=== PATIENT | female | born 1955 | race Caucasian/White ===

== ENCOUNTER → 2017-01-10 | Outpatient (CLI) | payer OTHER ==
[2017-01-10 10:27] LABS: CH 29.1; CHCM 32.8; HCT 46.7 % (34.0-46.0); HDW 2.51; HGB 15.3 gm/dL (11.4-16.0); MCH 29.3 pg (25.0-35.0); MCHC 32.8 g/dL (31.0-37.0); MCV 89.3 fL (80.0-100.0); Mean Platelet Volume 7.6; RBC 5.23 m/uL (3.80-5.40); RDW 13.5 % (11.5-15.5); WBC 8.4 k/uL (3.8-10.6)
[2017-01-10 10:53] LABS: ALT 32 U/L (9-52); AST 26 U/L (14-36); Alkaline Phosphatase 77 U/L (38-126); Anion Gap 10 mmol/L; Blood Urea Nitrogen 24 mg/dL (7-17); Calcium 9.8 mg/dL (8.4-10.2); Carbon Dioxide 29 mmol/L (22-30); Chloride 102 mmol/L (98-107); Cholesterol 177 mg/dL (<200); Glucose 110 mg/dL (74-99); HDL Cholesterol 57 mg/dL (40-60); Non-African American GFR(MDRD) >60 (>60 ml/min/1.73 sqM); Potassium 4.3 mmol/L (3.5-5.1); Sodium 141 mmol/L (137-145); Total Bilirubin 0.7 mg/dL (0.2-1.3); Total Protein 7.1 g/dL (6.3-8.2)
[2017-01-10 11:07] LABS: Triglycerides 128 mg/dL (<150)
[2017-01-10 11:37] LABS: Hepatitis C Virus IgG Ab Negative (Negative); Hepatitis C Virus IgG Index 0.02
== END | disposition home or self-care (01) ==
LOC: LABWHC1 09:57
PROVIDERS: ATTEND Family Medicine
DX: I10 Essential (primary) hypertension (principal); Z13.9 Encounter for screening, unspecified
CPT/HCPCS: 36415; 80053; 80061; 85027; 86803

== ENCOUNTER → 2017-08-03 | Outpatient (CLI) | payer MEDICAID ==
[2017-08-03 12:28] LABS: Basophils # (A) 0.1 k/uL (0-0.2); Basophils % (A) 1 %; Eosinophils # (A) 0.3 k/uL (0-0.7); Eosinophils % (A) 3 %; HCT 47.9 % (34.0-46.0); HGB 14.8 gm/dL (11.4-16.0); Lymphocytes # (A) 3.3 k/uL (1.0-4.8); Lymphocytes % (A) 35 %; MCH 26.9 pg (25.0-35.0); MCHC 30.9 g/dL (31.0-37.0); Mean Platelet Volume 8.1; Monocytes # (A) 0.7 k/uL (0-1.0); Monocytes % (A) 7 %; Neutrophils % (A) 52 %; Platelet Count 298 k/uL (150-450); RDW 14.5 % (11.5-15.5); WBC 9.6 k/uL (3.8-10.6)
[2017-08-03 12:45] LABS: ALT 43 U/L (9-52); AST 29 U/L (14-36); Alkaline Phosphatase 79 U/L (38-126); Anion Gap 12 mmol/L; Blood Urea Nitrogen 23 mg/dL (7-17); Carbon Dioxide 30 mmol/L (22-30); Chloride 101 mmol/L (98-107); Cholesterol 184 mg/dL (<200); Glucose 102 mg/dL (74-99); HDL Cholesterol 56 mg/dL (40-60); LDL Cholesterol,Calculated 102 mg/dL (0-99); Potassium 3.9 mmol/L (3.5-5.1); Sodium 143 mmol/L (137-145); Total Bilirubin 0.5 mg/dL (0.2-1.3); Total Protein 7.1 g/dL (6.3-8.2); Triglycerides 130 mg/dL (<150)
== END | disposition home or self-care (01) ==
LOC: LABWHC1 11:52
PROVIDERS: ATTEND Family Medicine
DX: I10 Essential (primary) hypertension (principal); E88.81 Metabolic syndrome and other insulin resistance; R60.9 Edema, unspecified
CPT/HCPCS: 36415; 80053; 80061; 85025

== ENCOUNTER → 2017-10-13 | Outpatient (CLI) | payer MEDICAID ==
--- NOTE | 2017-10-13 13:53 | MM ---
Reason for exam: screening (asymptomatic). Last mammogram was performed 1 year and 7 months ago. History: Patient is postmenopausal and history of other cancer. Physical Findings: A clinical breast exam by your physician is recommended on an annual basis and results should be correlated with mammographic findings. MG Screening Mammo w CAD Bilateral CC, MLO, and XCCL view(s) were taken. Prior study comparison: March 08, 2016, bilateral MG screening mammo w CAD. March 05, 2015, bilateral MG screening mammo w CAD. There are scattered fibroglandular densities. There is no discrete abnormality. ASSESSMENT: Negative, BI-RAD 1 RECOMMENDATION: Routine screening mammogram of both breasts in 1 year.
== END | disposition home or self-care (01) ==
LOC: RADMAMWWP 08:50
PROVIDERS: ATTEND Family Medicine
DX: Z12.31 Encounter for screening mammogram for malignant neoplasm of breast (principal)
CPT/HCPCS: 77067

== ENCOUNTER 2017-11-16 08:42 | Day surgery (SDC) | payer MEDICAID ==
[2017-11-14 12:44] VITALS: BMI 46.2
[~2017-11-16 08:42] MED LIST: LACTATED RINGERS 1,000 ML IV SCH; LIDOCAINE 1% 20 ML VIAL (10MG/ML) FOR IV START INTRADERMA PRN
[2017-11-16 09:05] VITALS: TEMP 98
[2017-11-16] MEDS ORDERED: PROPOFOL 10 MG/ML 20 ML VIAL IV ONE (09:24)
[2017-11-16 09:28] LABS: Glucose,Whole Blood 106 mg/dL (75-99)
--- NOTE | 2017-11-16 09:48 | P.PCN ---
Date of Procedure: 11/16/17 Procedure(s) Performed: BRIEF HISTORY: Patient is a 61-year-old pleasant white female, scheduled for an elective colonoscopy as a part of screening for colorectal neoplasia. PROCEDURE PERFORMED: Colonoscopy with snare polypectomy PREOPERATIVE DIAGNOSIS: Screening for colon cancer. IV sedation per Anesthesia. PROCEDURE: After informed consent was obtained, the patient, was brought into the endoscopy unit. IV sedation was administered by Anesthesia under continuous monitoring. Digital rectal examination was normal. Initially the Olympus CF- 160 flexible video colonoscope was then inserted in the rectum, gradually advanced into the cecum without any difficulty. Careful examination was performed as the scope was gradually being withdrawn. Ileocecal valve and the appendiceal orifice were visualized and appeared normal. Prep was excellent. Mucosa of the cecum, ascending colon, appeared normal. In the mid transverse colon there was a 2.5 cm broad-based polyp that was removed by piecemeal snare polyp rectum and complete polypectomy was accomplished. In the descending colon there was a 5 mm polyp removed by snare polypectomy in the rectum there were two 5 mm polyps removed by snare polypectomy. The rest of the transverse colon, descending colon, sigmoid colon, and rectum appeared normal. Scattered sigmoid diverticula seen. Retroflexion was performed in the rectum and no lesions were seen. The patient tolerated the procedure well. IMPRESSION: 2.5 cm with centimeter broad-based transverse colon polyp removed by snare polypectomy 5 mm descending colon polyp status post polypectomy 5 mm 2 rectal polyps status post polypectomy Scattered sigmoid diverticulosis RECOMMENDATIONS: Findings of this examination were discussed with the patient as well as a family. She was advised to follow with the biopsy results. If the biopsy shows a tubular adenoma she can have a repeat colonoscopy in 3 years.
[2017-11-16 09:54] VITALS: RESP 18
[2017-11-16 10:05] VITALS: BP 103/55; PULSE 55
== END 2017-11-16 10:42 | disposition home or self-care (01) ==
LOC: ORWHC2ENDO 08:42
PROVIDERS: ATTEND Internal Medicine Gastroenterology
DX: Z12.11 Encounter for screening for malignant neoplasm of colon (principal); K63.5 Polyp of colon; K62.1 Rectal polyp; D17.5 Benign lipomatous neoplasm of intra-abdominal organs; K57.30 Diverticulosis of large intestine without perforation or abscess without bleeding; I10 Essential (primary) hypertension; K21.9 Gastro-esophageal reflux disease without esophagitis; E66.01 Morbid (severe) obesity due to excess calories; Z68.42 Body mass index [BMI] 45.0-49.9, adult; Z79.1 Long term (current) use of non-steroidal anti-inflammatories (NSAID); Z79.82 Long term (current) use of aspirin; Z79.899 Other long term (current) drug therapy
CPT/HCPCS: 88305; 45385; J2704

== ENCOUNTER → 2018-01-26 | Outpatient (CLI) | payer MEDICAID ==
[2018-01-26 11:50] LABS: Basophils # (A) 0.1 k/uL (0-0.2); Basophils % (A) 1 %; Eosinophils # (A) 0.2 k/uL (0-0.7); Eosinophils % (A) 3 %; HCT 45.7 % (34.0-46.0); HGB 15.1 gm/dL (11.4-16.0); Lymphocytes # (A) 2.9 k/uL (1.0-4.8); Lymphocytes % (A) 36 %; MCHC 33.1 g/dL (31.0-37.0); MCV 87.7 fL (80.0-100.0); Mean Platelet Volume 7.4; Monocytes # (A) 0.6 k/uL (0-1.0); Monocytes % (A) 7 %; Neutrophils % (A) 50 %; Platelet Count 284 k/uL (150-450); RBC 5.21 m/uL (3.80-5.40); RDW 13.7 % (11.5-15.5); WBC 8.1 k/uL (3.8-10.6)
[2018-01-26 11:59] LABS: ALT 32 U/L (9-52); AST 26 U/L (14-36); Alkaline Phosphatase 66 U/L (38-126); Anion Gap 4 mmol/L; Blood Urea Nitrogen 25 mg/dL (7-17); Calcium 9.8 mg/dL (8.4-10.2); Carbon Dioxide 34 mmol/L (22-30); Chloride 103 mmol/L (98-107); Cholesterol 175 mg/dL (<200); Glucose 103 mg/dL (74-99); HDL Cholesterol 54 mg/dL (40-60); LDL Cholesterol,Calculated 97 mg/dL (0-99); Potassium 4.1 mmol/L (3.5-5.1); Sodium 141 mmol/L (137-145); Total Bilirubin 0.5 mg/dL (0.2-1.3); Total Protein 6.8 g/dL (6.3-8.2); Triglycerides 119 mg/dL (<150)
== END | disposition home or self-care (01) ==
LOC: LABWHC1 11:19
PROVIDERS: ATTEND Family Medicine
DX: I10 Essential (primary) hypertension (principal)
CPT/HCPCS: 36415; 80053; 80061; 85025

== ENCOUNTER → 2018-08-02 | Outpatient (CLI) | payer MEDICAID ==
[2018-08-02 11:14] LABS: HCT 46.8 % (34.0-46.0); HGB 15.4 gm/dL (11.4-16.0); MCH 28.7 pg (25.0-35.0); MCV 87.2 fL (80.0-100.0); Mean Platelet Volume 7.5; Platelet Count 256 k/uL (150-450); RBC 5.37 m/uL (3.80-5.40); RDW 13.8 % (11.5-15.5); WBC 7.9 k/uL (3.8-10.6)
[2018-08-02 11:20] LABS: Appearance,Urine Clear (Clear); Bacteria,Urine Rare /hpf; Bilirubin,Urine Negative (Negative); Blood,Urine Negative (Negative); Color,Urine Yellow; Glucose,Urine (UA) Negative (Negative); Ketones,Urine Negative (Negative); Leukocyte Esterase,Urine Negative (Negative); Mucus,Urine Many /hpf; Nitrite,Urine Negative (Negative); Protein,Urine 1+ (Negative); RBC,Urine 7 /hpf (0-5); Specific Gravity,Urine 1.024 (1.001-1.035); Squamous Epithelial Cell,Urine 3 /hpf (0-4); WBC,Urine 2 /hpf (0-5)
[2018-08-02 16:43] LABS: Albumin 4.3 g/dL (3.80-4.90); Albumin/Globulin Ratio 2.26 (1.20-2.10); Anion Gap 7.6 mmol/L (4.00-12.00); Calcium 9.4 mg/dL (8.7-10.3); Carbon Dioxide 30.4 mmol/L (21.6-31.8); Globulin 1.9 g/dL (1.6-3.3); LDL Cholesterol,Calculated 93.8 mg/dL (0.0-131.0); Potassium 3.8 mmol/L (3.5-5.5); Total Bilirubin 0.5 mg/dL (0.3-1.2); Total Protein 6.2 g/dL (6.2-8.2); VLDL Calculation 23.2 mg/dL (5.00-40.00)
== END | disposition home or self-care (01) ==
LOC: LABWHC1 10:40
PROVIDERS: ATTEND Family Medicine
DX: Z00.00 Encounter for general adult medical examination without abnormal findings (principal)
CPT/HCPCS: 36415; 80053; 80061; 81001; 85027

== ENCOUNTER → 2018-11-21 | Outpatient (CLI) | payer MEDICAID ==
--- NOTE | 2018-11-22 11:46 | MM ---
Reason for exam: screening (asymptomatic). Last mammogram was performed 1 year and 1 month ago. History: Patient is postmenopausal and history of other cancer. Physical Findings: A clinical breast exam by your physician is recommended on an annual basis and results should be correlated with mammographic findings. MG Screening Mammo w CAD Bilateral CC and MLO view(s) were taken. Prior study comparison: October 13, 2017, bilateral MG screening mammo w CAD. March 08, 2016, bilateral MG screening mammo w CAD. There are scattered fibroglandular densities. Stable 6 o'clock focal asymmetry on the right. No significant changes when compared with prior studies. ASSESSMENT: Negative, BI-RAD 1 RECOMMENDATION: Routine screening mammogram of both breasts in 1 year.
== END | disposition home or self-care (01) ==
LOC: RADMAMWWP 13:21
PROVIDERS: ATTEND Family Medicine
DX: Z12.31 Encounter for screening mammogram for malignant neoplasm of breast (principal)
CPT/HCPCS: 77067

== ENCOUNTER → 2019-02-19 | Outpatient (CLI) | payer MEDICAID ==
[2019-02-19 16:18] LABS: African American GFR (CKD) 78.3 (60.0-200.0); Albumin 4.2 g/dL (3.80-4.90); Albumin/Globulin Ratio 1.91 (1.60-3.17); Anion Gap 6.3 mmol/L (4.00-12.00); BUN/Creat Ratio 22.22 Ratio (12.00-20.00); Carbon Dioxide 32.7 mmol/L (21.6-31.8); Globulin 2.2 g/dL (1.6-3.3); Potassium 4.6 mmol/L (3.5-5.5); Total Bilirubin 0.4 mg/dL (0.2-1.2); Total Protein 6.4 g/dL (6.2-8.2)
== END | disposition home or self-care (01) ==
LOC: LABWHC1 11:19
PROVIDERS: ATTEND Family Medicine
DX: I10 Essential (primary) hypertension (principal); E78.2 Mixed hyperlipidemia
CPT/HCPCS: 36415; 80053; 80061

== ENCOUNTER → 2019-07-20 | Outpatient (CLI) | payer MEDICAID | END | disposition home or self-care (01) | LOC: RADMRIMAIN 20:53 | PROVIDERS: ATTEND Orthopaedic Surgery | DX: Z53.9 Procedure and treatment not carried out, unspecified reason (principal) ==

== ENCOUNTER → 2020-01-14 | Outpatient (CLI) | payer MEDICARE, OTHER ==
--- NOTE | 2020-01-15 10:23 | MM ---
Reason for exam: screening (asymptomatic). Last mammogram was performed 1 year and 2 months ago. History: Patient is postmenopausal and history of other cancer. Physical Findings: A clinical breast exam by your physician is recommended on an annual basis and results should be correlated with mammographic findings. MG 3D Screening Mammo W/Cad Bilateral CC, MLO, and XCCL view(s) were taken. Prior study comparison: November 21, 2018, bilateral MG screening mammo w CAD. October 13, 2017, bilateral MG screening mammo w CAD. The breast tissue is almost entirely fat. Focal asymmetry right 5-6 o'clock is unchanged. No significant changes when compared with prior studies. ASSESSMENT: Negative, BI-RAD 1 RECOMMENDATION: Routine screening mammogram of both breasts in 1 year.
== END | disposition home or self-care (01) ==
LOC: RADMAMWWP 14:56
PROVIDERS: ATTEND Family Medicine
DX: Z12.31 Encounter for screening mammogram for malignant neoplasm of breast (principal)
CPT/HCPCS: 77063; 77067

== ENCOUNTER → 2020-03-20 | Outpatient (CLI) | payer MEDICARE, OTHER ==
--- NOTE | 2020-03-20 16:27 | CONS ---
CONSULTATION DATE OF SERVICE: 03/20/2020 A 64-year-old lady has been evaluated in the Sleep Center for possible obstructive sleep apnea-hypopnea syndrome. HISTORY OF PRESENT ILLNESS/SLEEP WAKE EVALUATION: Patient's usual sleep schedule from around 11 p.m. to 7, 8 a.m. No problems with falling asleep, although she has TV in bedroom. She usually sleeps on the stomach position. According to her when she is tired, her snoring is very loud. No history of hypnagogic hallucinations, sleep paralysis. In the morning, patient wakes up tired, falling asleep during the day. [place] Sleepiness Scale increased to 10. No vivid dreams during naps. She takes 2 caffeinated beverages during the day. PAST MEDICAL HISTORY: Hypertension, depression, acid reflux, basal cell CA, swelling of the legs. PAST SURGICAL HISTORY: Hysterectomy, appendectomy, and hernia repair. SOCIAL HISTORY: Alcohol consumption occasional. FAMILY HISTORY: Snoring, skin cancer, hypertension, hyperlipidemia. REVIEW OF SYSTEMS: Sleepiness during the day, snoring. PHYSICAL EXAM: lady without distress, BP 168/79, HR 52, RR 16, height 5 foot, 6-1/2 inches, weight 304 pounds, body mass index 48.3, temperature 98.1, oxygen saturation from 96%. OROPHARYNX: Extremely low position of soft palate, Mallampati IV, wide neck 16 inches in circumference. ABDOMEN: Obese. NECK: Supple, no JVD. Thyroid is not palpable. LUNGS: Clear to percussion and to auscultation. Good air exchange. No wheezing or rhonchi. HEART: S1, S2 regular. No murmurs, gallops, or rubs. EXTREMITIES: No clubbing or cyanosis. TECHNICAL SALES DIRECTOR: Awake, alert, and oriented X3. Cranial nerves 2 to 7 intact. There is no fasciculation or atrophy. noted. No focal deficits observed. IMPRESSION: 1. Loud snoring, extremely low position of soft palate, sleepiness, [place] Sleepiness Scale is 10,. wide neck, obstructive sleep apnea-hypopnea syndrome. 2. Obesity. 3. Hypertension. 4. Depression. 5. Status post basal cell carcinoma from the face removed. 6. Acid reflux. 7. History of swelling of legs. 8. Allergy. 9. Status post hysterectomy. 10.Status post appendectomy. 11.Status post hernia repair. PLAN: 1. Polysomnography for evaluation of patient's breathing during sleep. 2. CPAP/BiPAP titration if sleep study confirms obstructive sleep apnea-hypopnea syndrome. 3. Preferable position during sleep on the side. 4. No driving if patient feels any sleepiness. 5. I will see patient for follow up visit to explain results of testing and following plan. Thank you very much for referring this patient for consultation. Sincerely, Armand Thomas MD, PhD, FAASM Diplomat of [place] [employer] [place] [employer] Lead Web Application Developer of [facility] [place] MMODL / IJN: [id number] /
== END | disposition home or self-care (01) ==
LOC: SLEEP 11:04
PROVIDERS: ATTEND Internal Medicine
DX: G47.33 Obstructive sleep apnea (adult) (pediatric) (principal); E66.9 Obesity, unspecified; I10 Essential (primary) hypertension; F32.9 Major depressive disorder, single episode, unspecified; K21.9 Gastro-esophageal reflux disease without esophagitis; T78.40XA Allergy, unspecified, initial encounter; Z90.710 Acquired absence of both cervix and uterus; Z90.49 Acquired absence of other specified parts of digestive tract; Z85.828 Personal history of other malignant neoplasm of skin; Z87.39 Personal history of other diseases of the musculoskeletal system and connective tissue; Z98.890 Other specified postprocedural states
CPT/HCPCS: 99211

== ENCOUNTER → 2020-08-07 | Outpatient (CLI) | payer MEDICARE, OTHER ==
--- NOTE | 2020-08-07 20:44 | SFUN ---
SLEEP CENTER FOLLOW UP NOTE DATE OF SERVICE: 08/07/2020 This 64-year-old lady has been followed in the sleep center for treatment of obstructive sleep apnea-hypopnea syndrome. The patient had a diagnostic polysomnogram which showed extremely severe sleep apnea, then patient had CPAP titration. Respiration was normalized and she received a CPAP unit. Today is her first visit after she was started on treatment with CPAP. The patient feels much better after starting treatment with CPAP. She sleeps better. She feels better during the day. [place] Sleepiness Scale today is zero. I checked BiPAP unit. Pressure is 19/14 cm of water, usage 29/30 nights for more than 4 hours with average usage 7.4 hours per night. Leak is 13 L/minute. Apnea-hypopnea index is only 2.3, which is absolutely normal. MEDICATIONS: Losartan, montelukast, sertraline, furosemide, hydrochlorothiazide, amlodipine, bupropion, omeprazole, simvastatin, metoprolol, Aleve, aspirin, vitamin D3. PHYSICAL EXAMINATION: GENERAL: A pleasant patient in no distress. VITAL SIGNS: BP 131/76, HR 61, RR 15, weight 306.4, temperature 97.8, oxygen saturation at room air 96%. HEENT: PERRLA, EOMI. Evaluation of oropharynx showed tongue protrudes midline. Extremely low position of soft palate. Mallampati IV. NECK: Supple. No JVD. Thyroid is not palpable. LUNGS: Clear to percussion and to auscultation. Good air exchange. No wheezing or rhonchi. HEART: S1, S2 regular. No murmurs, gallops or rubs. ABDOMEN: Soft and nontender. Bowel sounds are present. No organomegaly appreciated. EXTREMITIES: No clubbing or cyanosis. CARDIOVASCULAR PHYSICIAN ASSISTANT: Awake, alert, and oriented X3. Cranial nerves 2 to 7 intact. There is no fasciculation or atrophy. noted. No focal deficits observed. IMPRESSION: 1. Extremely severe obstructive sleep apnea-hypopnea syndrome; apnea-hypopnea index 119.8 with oxygen desaturation to 67.9%, fully under control with BiPAP. The patient demonstrated practically 100% compliance with treatment, benefitting from treatment. 2. Hypertension. 3. Obesity. 4. Depression. 5. Status post basal cell carcinoma on the face, removed. 6. Acid reflux. 7. History of allergies. 8. History of swelling of the legs. 9. Status post hysterectomy. 10.Status post appendectomy. 11.Status post hernia repair. PLAN: 1. Patient will continue to use PAP equipment every night for the whole night. 2. Sleep hygiene with regular time in bed for at least 7-1/2 to 8 hours. 3. Precautions related to driving. No driving if feeling sleepiness. 4. I will maintain all necessary prescription for PAP supplies including mask, tube, filters. 5. Watching weight. 6. No driving if feeling sleepiness. 7. Follow-up visit in 6 months or earlier if patient has any problems. 8. We will consider a different style of mask; patient feels pressure from the mask which she is using now. Thank you very much for allowing me to participate in the management of your patient. Sincerely, Armand Thomas MD, PhD, FAASM Diplomat of [place] [employer] [place] [employer] Custom Dressmaker of [facility] [place] MMODL / IJN: [id number] /
== END | disposition home or self-care (01) ==
LOC: SLEEP 13:19
PROVIDERS: ATTEND Internal Medicine
DX: G47.33 Obstructive sleep apnea (adult) (pediatric) (principal); I10 Essential (primary) hypertension; E66.9 Obesity, unspecified; F32.9 Major depressive disorder, single episode, unspecified; K21.9 Gastro-esophageal reflux disease without esophagitis; Z90.710 Acquired absence of both cervix and uterus; Z90.49 Acquired absence of other specified parts of digestive tract; Z99.89 Dependence on other enabling machines and devices; Z79.899 Other long term (current) drug therapy; Z79.891 Long term (current) use of opiate analgesic; Z79.82 Long term (current) use of aspirin; Z98.890 Other specified postprocedural states; Z87.39 Personal history of other diseases of the musculoskeletal system and connective tissue; Z91.09 Other allergy status, other than to drugs and biological substances

== ENCOUNTER 2020-10-24 05:52 | Emergency (ER) | payer MEDICARE, OTHER ==
[2020-10-24] MEDS ORDERED: ACETAMINOPHEN TAB 500 MG TAB PO STA (06:16)
[2020-10-24 06:37] LABS: Basophils % (A) 1 %; Eosinophils % (A) 0 %; HCT 45.1 % (34.0-46.0); HGB 15.1 gm/dL (11.4-16.0); Lymphocytes # (A) 1.1 k/uL (1.0-4.8); Lymphocytes % (A) 25 %; MCH 28.7 pg (25.0-35.0); MCHC 33.6 g/dL (31.0-37.0); MCV 85.5 fL (80.0-100.0); Mean Platelet Volume 7.7; Monocytes # (A) 0.4 k/uL (0-1.0); Monocytes % (A) 9 %; Neutrophils # (A) 2.8 k/uL (1.3-7.7); Neutrophils % (A) 62 %; Platelet Count 179 k/uL (150-450); RBC 5.27 m/uL (3.80-5.40); RDW 13.6 % (11.5-15.5); WBC 4.5 k/uL (3.8-10.6)
[2020-10-24 06:50] LABS: ALT 26 U/L (4-34); AST 39 U/L (14-36); African American GFR (CKD) >90 (>60 ml/min/1.73 sqM); Albumin 3.8 g/dL (3.5-5.0); Alkaline Phosphatase 71 U/L (38-126); Anion Gap 9 mmol/L; Blood Urea Nitrogen 17 mg/dL (7-17); Calcium 9.1 mg/dL (8.4-10.2); Carbon Dioxide 27 mmol/L (22-30); Chloride 100 mmol/L (98-107); Glucose 119 mg/dL (74-99); Non-African American GFR(CKD) >90 (>60 ml/min/1.73 sqM); Potassium 3.8 mmol/L (3.5-5.1); Sodium 136 mmol/L (137-145); Total Bilirubin 0.5 mg/dL (0.2-1.3); Total Protein 6.7 g/dL (6.3-8.2)
[2020-10-24] MEDS ORDERED: ONDANSETRON 4 MG/2 ML VIAL IVP STA (07:10)
--- NOTE | 2020-10-24 07:19 | ED ---
General Adult HPI - General Chief complaint: Nausea/Vomiting/Diarrhea Stated complaint: Cough, Headache Time Seen by Provider: 10/24/20 06:57 Source: patient, RN notes reviewed Mode of arrival: wheelchair Limitations: no limitations - History of Present Illness Initial comments: 64-year-old female presents emergency Department with chief complaint of po ssible Covid. Patient states her does have positive last Tuesday. She started symptoms on states that she's been sick cough congestion nausea and some vomiting diarrhea. No sick and shortness of breath. Patient states that she has not gotten any better and was concerned. Patient is known drug ALLERGIES. Patient is a nonsmoker no history of lung disease. - Related Data Home Medications Medication Instructions Recorded Confirmed Aspirin 325 mg PO DAILY 11/14/17 11/14/17 Cholecalciferol [Vitamin D3] 1,000 unit PO DAILY 11/14/17 11/14/17 Furosemide [Lasix] 20 mg PO QAM 11/14/17 11/14/17 Losartan/Hydrochlorothiazide 1 each PO QAM 11/14/17 11/14/17 [Losartan-Hctz 100-25 mg Tab] Metoprolol Tartrate [Lopressor] 50 mg PO HS 11/14/17 11/14/17 Naproxen Sodium [Aleve] 220 mg PO BID PRN 11/14/17 11/14/17 Omeprazole 20 mg PO QAM 11/14/17 11/14/17 Sertraline [Zoloft] 100 mg PO DAILY 11/14/17 11/14/17 Simvastatin [Zocor] 20 mg PO HS 11/14/17 11/14/17 amLODIPine BESYLATE [Norvasc] 5 mg PO QAM 11/14/17 11/14/17 Allergies Allergy/AdvReac Type Severity Reaction Status Date / Time No Known Allergies Allergy Verified 11/14/17 12:31 Review of Systems ROS Statement: Those systems with pertinent positive or pertinent negative responses have been documented in the HPI. ROS Other: All systems not noted in ROS Statement are negative. Past Medical History Past Medical History: GERD/Reflux, Hyperlipidemia, Hypertension Additional Past Medical History / Comment(s): LE EDEMA History of Any Multi-Drug Resistant Organisms: None Reported Past Surgical History: Appendectomy, Cholecystectomy, Hernia Repair, H ysterectomy Past Anesthesia/Blood Transfusion Reactions: No Reported Reaction Past Psychological History: Depression Smoking Status: Never smoker Past Alcohol Use History: None Reported Past Drug Use History: None Reported - Past Family History Mother Family Medical History: No Reported History General Exam Limitations: no limitations General appearance: alert, in no apparent distress Head exam: Present: atraumatic, normocephalic, normal inspection Eye exam: Present: normal appearance, PERRL, EOMI. Absent: scleral icterus, conjunctival injection, periorbital swelling ENT exam: Present: normal exam, normal oropharynx, mucous membranes moist Neck exam: Present: normal inspection, full ROM. Absent: tenderness, meningismus, lymphadenopathy Respiratory exam: Present: normal lung sounds bilaterally. Absent: respiratory distress, wheezes, rales, rhonchi, stridor Cardiovascular Exam: Present: regular rate, normal rhythm, normal heart sounds. Absent: systolic murmur, diastolic murmur, rubs, gallop, clicks GI/Abdominal exam: Present: soft, normal bowel sounds. Absent: distended, tenderness, guarding, rebound, rigid Neurological exam: Present: alert, oriented X3 Skin exam: Present: warm, dry, intact, normal color. Absent: rash Course Vital Signs 10/24/20 10/24/20 10/24/20 06:00 08:45 09:30 Temperature 100.7 F H 99.3 F Pulse Rate 66 61 62 Respiratory 20 20 18 Rate Blood Pressure 166/74 116/72 117/63 O2 Sat by Pulse 94 L 92 L 93 L Oximetry Medical Decision Making - Medical Decision Making Patient is positive for cvoid Patient is medically stable no obvious distress. Patient was given multiple antibodies will be discharged in stable condition. - Lab Data Result diagrams: 10/24/20 06:11 10/24/20 06:11 Lab Results 10/24/20 10/24/20 10/24/20 Range/Units 06:11 06:11 06:11 WBC 4.5 (3.8-10.6) k/uL RBC 5.27 (3.80-5.40) m/uL Hgb 15.1 (11.4-16.0) gm/dL Hct 45.1 (34.0-46.0) % MCV 85.5 (80.0-100.0) fL MCH 28.7 (25.0-35.0) pg MCHC 33.6 (31.0-37.0) g/dL RDW 13.6 (11.5-15.5) % Plt Count 179 (150-450) k/uL MPV 7.7 Neutrophils % 62 % Lymphocytes % 25 % Monocytes % 9 % Eosinophils % 0 % Basophils % 1 % Neutrophils # 2.8 (1.3-7.7) k/uL Lymphocytes # 1.1 (1.0-4.8) k/uL Monocytes # 0.4 (0-1.0) k/uL Eosinophils # 0.0 (0-0.7) k/uL Basophils # 0.0 (0-0.2) k/uL Sodium 136 L (137-145) mmol/L Potassium 3.8 (3.5-5.1) mmol/L Chloride 100 (98-107) mmol/L Carbon Dioxide 27 (22-30) mmol/L Anion Gap 9 mmol/L BUN 17 (7-17) mg/dL Creatinine 0.71 (0.52-1.04) mg/dL Est GFR (CKD-EPI)AfAm >90 (>60 ml/min/1.73 sqM) Est GFR (CKD-EPI)NonAf >90 (>60 ml/min/1.73 sqM) Glucose 119 H (74-99) mg/dL Calcium 9.1 (8.4-10.2) mg/dL Total Bilirubin 0.5 (0.2-1.3) mg/dL AST 39 H (14-36) U/L ALT 26 (4-34) U/L Alkaline Phosphatase 71 (38-126) U/L Total Protein 6.7 (6.3-8.2) g/dL Albumin 3.8 (3.5-5.0) g/dL Coronavirus (PCR) Detected A (Not Detectd) Disposition Clinical Impression: COVID-19 Disposition: HOME SELF-CARE Condition: Stable Instructions (If sedation given, give patient instructions): Coronavirus Disease 2019 (COVID-19) Additional Instructions: Please return to the Emergency Department if symptoms worsen or any other concerns. Is patient prescribed a controlled substance at d/c from ED?: No Referrals: Jere Love MD [Primary Care Provider] - 1-2 days Time of Disposition: 10:01
--- NOTE | 2020-10-24 07:29 | XR ---
EXAMINATION TYPE: XR chest 2V DATE OF EXAM: 10/24/2020 COMPARISON: None HISTORY: 64-year-old female with cough TECHNIQUE: PA and lateral views FINDINGS: Heart is borderline enlarged. Scattered interstitial opacities bilaterally. No pleural effusion. Mode rate endplate spondylosis mid to lower thoracic spine. IMPRESSION: 1. Scattered interstitial opacities. Underlying COVID pneumonia not excluded. 2. Borderline cardiomegaly.
[2020-10-24] MEDS ORDERED: BAMLANIVIMAB (EUA) 700 MG, ETESEVIMAB (EUA) 1,400 MG in SODIUM CHLORIDE 0.9% 50 ML IVPB ONE (08:00)
[2020-10-24] MEDS ORDERED: SODIUM CHLORIDE 0.9% 50 ML IVPB ONE (08:00)
[2020-10-24 09:31] VITALS: PULSE 62; RESP 18
[2020-10-24 09:36] VITALS: TEMP 99.3
[2020-10-24 10:10] VITALS: BP 105/68
== END 2020-10-24 10:25 | disposition home or self-care (01) ==
LOC: EC 05:52
DX: U07.1 COVID-19 (principal); F32.9 Major depressive disorder, single episode, unspecified; K21.9 Gastro-esophageal reflux disease without esophagitis; E78.5 Hyperlipidemia, unspecified; I10 Essential (primary) hypertension; Z79.899 Other long term (current) drug therapy; Z90.49 Acquired absence of other specified parts of digestive tract; Z90.710 Acquired absence of both cervix and uterus
CPT/HCPCS: 36415; 80053; 85025; 87635; 71046; 99284; 96365; Q0245

== ENCOUNTER → 2021-02-26 | Outpatient (CLI) | payer MEDICARE, OTHER ==
--- NOTE | 2021-03-02 10:01 | MM ---
Reason for exam: screening (asymptomatic). Last mammogram was performed 1 year and 1 month ago. History: Patient is postmenopausal and history of other cancer. Took hormonal contraceptives for 7 years. Physical Findings: A clinical breast exam by your physician is recommended on an annual basis and results should be correlated with mammographic findings. MG 3D Screening Mammo W/Cad Bilateral CC and MLO view(s) were taken. Prior study comparison: January 14, 2020, bilateral MG 3d screening mammo w/cad. November 21, 2018, bilateral MG screening mammo w CAD. The breast tissue is almost entirely fat. No significant changes when compared with prior studies. ASSESSMENT: Negative, BI-RAD 1 RECOMMENDATION: Routine screening mammogram of both breasts in 1 year.
== END | disposition home or self-care (01) ==
LOC: RADMAMWWP 08:12
PROVIDERS: ATTEND Family Medicine
DX: Z12.31 Encounter for screening mammogram for malignant neoplasm of breast (principal)
CPT/HCPCS: 77063; 77067

== ENCOUNTER → 2021-03-12 | Outpatient (CLI) | payer MEDICARE, OTHER ==
--- NOTE | 2021-03-12 14:32 | SFUN ---
SLEEP CENTER FOLLOW UP NOTE DATE OF SERVICE: 03/12/2021 This 65-year-old lady has been followed in Sleep Center for treatment of extremely severe obstructive sleep apnea-hypopnea syndrome. Patient continues to use her CPAP equipment every night. No snoring with the machine. She feels better. [place] Sleepiness Scale is zero. I checked her BiPAP unit. Maximal inspiratory pressure is 18, minimal expiratory pressure 7, average pressure 18/14, usage 30/30 nights for more than 4 hours with average usage 7.2 hours per night. Leak is 7 L/minute, which is in normal range. Apnea- hypopnea index is only 1.0, which is absolutely perfect. MEDICATIONS: 1. Montelukast 10 mg once a day. 2. Omeprazole 20 mg once a day. 3. Amlodipine 10 mg once a day. 4. Metoprolol 50 mg once a day. 5. Furosemide 20 mg two tablets in the morning once a day. 6. Simvastatin 20 mg once a day. 7. Losartan 100 mg once a day. 8. Bupropion 150 mg once a day. 9. Sertraline 100 mg once a day. 10.Aspirin 325 mg once a day. PHYSICAL EXAMINATION: GENERAL: A pleasant patient without any distress. VITAL SIGNS: BP 160/62, HR 58, RR 15, height 5 feet 6 inches, weight 305 pounds, body mass index 49. The patient lost about 1-1/2 pounds since previous visit. Temperature 97.8, oxygen saturation 96%. HEENT: PERRLA, EOMI, evaluation of oropharynx showed tongue protrudes midline. Extremely low position of soft palate; Mallampati IV. NECK: Supple, no JVD. Thyroid is not palpable. LUNGS: Clear to percussion and to auscultation. Good air exchange. No wheezing or rhonchi. HEART: S1, S2 regular. No murmurs, gallops, or rubs. ABDOMEN: Obese. EXTREMITIES: One plus ankle edema. DITCHING MACHINE OPERATING ENGINEER: Awake, alert, and oriented X3. Cranial nerves 2 to 7 intact. There is no fasciculation or atrophy. noted. No focal deficits observed. IMPRESSION: 1. Extremely severe obstructive sleep apnea-hypopnea syndrome; apnea-hypopnea index 119 with oxygen desaturation to 67.9%. The patient demonstrated 100% compliance with treatment. Normal respiration on treatment. 2. Hypertension. 3. Depression. 4. Obesity. 5. Acid reflux. 6. Status post basal cell carcinoma of the face removed. 7. History of allergies. 8. History of swelling of the legs. 9. Status post hysterectomy. 10.Status post appendectomy. 11.Status post hernia repair. PLAN: 1. Patient will continue to use PAP equipment every night for the whole night. 2. Sleep hygiene with regular time in bed for at least 7-1/2 to 8 hours. 3. Precautions related to driving. No driving if feeling sleepiness. 4. I will maintain all necessary prescription for PAP supplies including mask, tube, filters. 5. Watching weight. 6. Follow-up visit in 6 months or earlier if patient has any problems. Thank you very much for allowing me to participate in the management of your patient. Sincerely, Armand Thomas MD, PhD, FAASM Diplomat of [place] [employer] Sleep Medicine Board of [place] [employer] Horseback Riding Instructor of [facility] [place] MMODL / DANNYN: [id number] /
== END ==
LOC: SLEEP 10:34
PROVIDERS: ATTEND Internal Medicine
DX: G47.33 Obstructive sleep apnea (adult) (pediatric) (principal); I10 Essential (primary) hypertension; F32.9 Major depressive disorder, single episode, unspecified; E66.9 Obesity, unspecified; K21.9 Gastro-esophageal reflux disease without esophagitis; Z68.39 Body mass index [BMI] 39.0-39.9, adult; Z87.891 Personal history of nicotine dependence; Z85.89 Personal history of malignant neoplasm of other organs and systems; Z90.710 Acquired absence of both cervix and uterus; Z90.49 Acquired absence of other specified parts of digestive tract; Z98.890 Other specified postprocedural states; Z87.2 Personal history of diseases of the skin and subcutaneous tissue; Z87.892 Personal history of anaphylaxis; Z79.899 Other long term (current) drug therapy

== ENCOUNTER 2021-03-20 19:00 | Inpatient (IN) | payer MEDICARE, OTHER ==
[2021-03-20] MEDS ORDERED: IBUPROFEN 600 MG TAB PO STA (21:56)
--- NOTE | 2021-03-20 21:57 | ED ---
Fever HPI - General Chief Complaint: Fever Stated Complaint: Chills,Generalized Body Ache Time Seen by Provider: 03/20/21 21:21 Source: patient, RN notes reviewed, old records reviewed Mode of arrival: ambulatory Limitations: no limitations - History of Present Illness Initial Comments: This is a 65-year-old female to the ER today. Patient presents today for evaluation in regards to bodyaches pains feeling feverish sweating and chills. Patient has history of high blood pressure high cholesterol. Patient has no significantly known sick contacts. Patient is right about possible coronavirus. Does cough congestion or shortness of breath. Patient denies abdominal pain no nausea vomiting or diarrhea. Patient has no recent travel history or sick contacts, no family members with similar complaints MD Complaint: fever, malaise, weakness -: hour(s) Temperature Source: subjective Associated Symptoms: chills, myalgias, night sweats Treatments Prior to Arrival: Acetaminophen - Related Data Home Medications Medication Instructions Recorded Confirmed Aspirin 325 mg PO DAILY 11/14/17 03/20/21 Furosemide [Lasix] 40 mg PO DAILY 11/14/17 03/20/21 Metoprolol Tartrate [Lopressor] 50 mg PO HS 11/14/17 03/20/21 Naproxen Sodium [Aleve] 220 mg PO BID PRN 11/14/17 03/20/21 Omeprazole 20 mg PO DAILY 11/14/17 03/20/21 Sertraline [Zoloft] 100 mg PO DAILY 11/14/17 03/20/21 Simvastatin [Zocor] 20 mg PO HS 11/14/17 03/20/21 Losartan Potassium [Cozaar] 100 mg PO DAILY 03/20/21 03/20/21 Montelukast Sodium [Singulair] 10 mg PO HS 03/20/21 03/20/21 Potassium Chloride ER [K-Dur 10] 20 meq PO DAILY 03/20/21 03/20/21 amLODIPine [Norvasc] 10 mg PO DAILY 03/20/21 03/20/21 buPROPion XL [Wellbutrin XL] 150 mg PO DAILY 03/20/21 03/20/21 hydroCHLOROthiazide 25 mg PO DAILY 03/20/21 03/20/21 Allergies Allergy/AdvReac Type Severity Reaction Status Date / Time No Known Allergies Allergy Verified 03/20/21 22:54 Review of Systems ROS Statement: Those systems with pertinent positive or pertinent negative responses have been documented in the HPI. ROS Other: All systems not noted in ROS Statement are negative. Past Medical History Past Medical History: GERD/Reflux, Hyperlipidemia, Hypertension Additional Past Medical History / Comment(s): LE EDEMA History of Any Multi-Drug Resistant Organisms: None Reported Past Surgical History: Appendectomy, Cholecystectomy, Hernia Repair, Hysterectomy Past Anesthesia/Blood Transfusion Reactions: No Reported Reaction Past Psychological History: Depression Smoking Status: Never smoker Past Alcohol Use History: None Reported Past Drug Use History: None Reported - Past Family History Mother Family Medical History: No Reported History General Exam General appearance: alert, in no apparent distress Head exam: Present: atraumatic, normocephalic, normal inspection Eye exam: Present: normal appearance, PERRL, EOMI. Absent: scleral icterus, con junctival injection, periorbital swelling ENT exam: Present: normal exam, mucous membranes moist Neck exam: Present: normal inspection. Absent: tenderness, meningismus, lymphadenopathy Respiratory exam: Present: normal lung sounds bilaterally. Absent: respiratory distress, wheezes, rales, rhonchi, stridor Cardiovascular Exam: Present: regular rate, normal rhythm, normal heart sounds. Absent: systolic murmur, diastolic murmur, rubs, gallop, clicks GI/Abdominal exam: Present: soft, normal bowel sounds. Absent: distended, tenderness, guarding, rebound, rigid Extremities exam: Present: normal inspection, full ROM, normal capillary refill. Absent: tenderness, pedal edema, joint swelling, calf tenderness Back exam: Present: normal inspection Neurological exam: Present: alert, oriented X3, CN II-XII intact Psychiatric exam: Present: normal affect, normal mood Skin exam: Present: warm, dry, intact, normal color. Absent: rash Course Vital Signs 03/20/21 20:18 Temperature 98.1 F Pulse Rate 74 Respiratory 22 Rate Blood Pressure 157/69 O2 Sat by Pulse 94 L Oximetry - Reevaluation(s) Reevaluation #1: 03/21/21 01:49 Medical record is reviewed Reevaluation #2: 03/21/21 01:49 Patient has no significant breathing improvement here in the ER Reevaluation #3: 03/21/21 01:49 Patient is informed of results and questions are answered - Consultations Consultation #1: Spoke with adriano who will see this patient Medical Decision Making - Medical Decision Making 65 female DF for evaluation of unknown fever, leukocytosis, patient be admitted for evaluation of possible causes, started on empiric antibiotics. Chest x-rays negative - Lab Data Result diagrams: 03/20/21 22:52 03/21/21 00:00 Lab Results 03/20/21 03/20/21 03/20/21 Range/Units 21:52 22:52 22:52 WBC 26.3 H (3.8-10.6) k/uL RBC 5.01 (3.80-5.40) m/uL Hgb 14.8 (11.4-16.0) gm/dL Hct 44.8 (34.0-46.0) % MCV 89.5 (80.0-100.0) fL MCH 29.5 (25.0-35.0) pg MCHC 33.0 (31.0-37.0) g/dL RDW 14.0 (11.5-15.5) % Plt Count 248 (150-450) k/uL MPV 9.0 Neutrophils % 89 % Lymphocytes % 6 % Monocytes % 3 % Eosinophils % 0 % Basophils % 0 % Neutrophils # 23.5 H (1.3-7.7) k/uL Lymphocytes # 1.6 (1.0-4.8) k/uL Monocytes # 0.9 (0-1.0) k/uL Eosinophils # 0.0 (0-0.7) k/uL Basophils # 0.1 (0-0.2) k/uL PT (9.0-12.0) sec INR (<1.2) APTT (22.0-30.0) sec Sodium (137-145) mmol/L Potassium (3.5-5.1) mmol/L Chloride (98-107) mmol/L Carbon Dioxide (22-30) mmol/L Anion Gap mmol/L BUN (7-17) mg/dL Creatinine (0.52-1.04) mg/dL Est GFR (CKD-EPI)AfAm (>60 ml/min/1.73 sqM) Est GFR (CKD-EPI)NonAf (>60 ml/min/1.73 sqM) Glucose (74-99) mg/dL Plasma Lactic Acid Bulmaro 2.0 (0.7-2.0) mmol/L Calcium (8.4-10.2) mg/dL Magnesium (1.6-2.3) mg/dL Total Bilirubin (0.2-1.3) mg/dL AST (14-36) U/L ALT (4-34) U/L Alkaline Phosphatase (38-126) U/L Lactate Dehydrogenase (313-618) U/L C-Reactive Protein (<1.0) mg/dL Total Protein (6.3-8.2) g/dL Albumin (3.5-5.0) g/dL Coronavirus (PCR) Not Detected (Not Detectd) 03/21/21 03/21/21 Range/Units 00:00 00:00 WBC (3.8-10.6) k/uL RBC (3.80-5.40) m/uL Hgb (11.4-16.0) gm/dL Hct (34.0-46.0) % MCV (80.0-100.0) fL MCH (25.0-35.0) pg MCHC (31.0-37.0) g/dL RDW (11.5-15.5) % Plt Count (150-450) k/uL MPV Neutrophils % % Lymphocytes % % Monocytes % % Eosinophils % % Basophils % % Neutrophils # (1.3-7.7) k/uL Lymphocytes # (1.0-4.8) k/uL Monocytes # (0-1.0) k/uL Eosinophils # (0-0.7) k/uL Basophils # (0-0.2) k/uL PT 10.9 (9.0-12.0) sec INR 1.0 (<1.2) APTT 24.1 (22.0-30.0) sec Sodium 135 L (137-145) mmol/L Potassium 3.7 (3.5-5.1) mmol/L Chloride 103 (98-107) mmol/L Carbon Dioxide 25 (22-30) mmol/L Anion Gap 7 mmol/L BUN 20 H (7-17) mg/dL Creatinine 0.74 (0.52-1.04) mg/dL Est GFR (CKD-EPI)AfAm >90 (>60 ml/min/1.73 sqM) Est GFR (CKD-EPI)NonAf 85 (>60 ml/min/1.73 sqM) Glucose 126 H (74-99) mg/dL Plasma Lactic Acid Bulmaro (0.7-2.0) mmol/L Calcium 9.7 (8.4-10.2) mg/dL Magnesium 1.9 (1.6-2.3) mg/dL Total Bilirubin 0.7 (0.2-1.3) mg/dL AST 26 (14-36) U/L ALT 19 (4-34) U/L Alkaline Phosphatase 79 (38-126) U/L Lactate Dehydrogenase 727 H (313-618) U/L C-Reactive Protein 8.0 H (<1.0) mg/dL Total Protein 6.7 (6.3-8.2) g/dL Albumin 3.9 (3.5-5.0) g/dL Coronavirus (PCR) (Not Detectd) - EKG Data -: EKG Interpreted by Me (EKG is sinus rhythm 74 year 158 QRS 82 QTC 442) - Radiology Data Radiology results: report reviewed (Chest x-rays negative for acute disease), image reviewed Disposition Clinical Impression: Leukocytosis, Fever Disposition: ADMITTED IP TO THIS HOSP Condition: Good Is patient prescribed a controlled substance at d/c from ED?: No
[2021-03-20] MEDS ORDERED: SODIUM CHLORIDE 0.9% 1,000 ML IV STA (22:28)
--- NOTE | 2021-03-20 22:48 | XR ---
EXAMINATION TYPE: XR chest 1V portable DATE OF EXAM: 03/20/2021 COMPARISON: 10/24/2020 HISTORY: Cough TECHNIQUE: Single view FINDINGS: There is no heart failure nor confluent pneumonic infiltrate. Costophrenic angles are clear . There are no hilar masses. Bony thorax is intact. Exam limited by patient's size. IMPRESSION: No active cardiopulmonary disease. No change.
[2021-03-20 23:19] LABS: Basophils # (A) 0.1 k/uL (0-0.2); Basophils % (A) 0 %; Eosinophils % (A) 0 %; HCT 44.8 % (34.0-46.0); HGB 14.8 gm/dL (11.4-16.0); Lymphocytes # (A) 1.6 k/uL (1.0-4.8); Lymphocytes % (A) 6 %; MCH 29.5 pg (25.0-35.0); MCV 89.5 fL (80.0-100.0); Monocytes # (A) 0.9 k/uL (0-1.0); Monocytes % (A) 3 %; Neutrophils # (A) 23.5 k/uL (1.3-7.7); Neutrophils % (A) 89 %; Platelet Count 248 k/uL (150-450); RBC 5.01 m/uL (3.80-5.40); WBC 26.3 k/uL (3.8-10.6)
[2021-03-21 01:02] LABS: Partial Thromboplastin Time 24.1 sec (22.0-30.0); Prothrombin Time 10.9 sec (9.0-12.0)
[2021-03-21 01:03] LABS: ALT 19 U/L (4-34); AST 26 U/L (14-36); African American GFR (CKD) >90 (>60 ml/min/1.73 sqM); Albumin 3.9 g/dL (3.5-5.0); Alkaline Phosphatase 79 U/L (38-126); Anion Gap 7 mmol/L; Blood Urea Nitrogen 20 mg/dL (7-17); Calcium 9.7 mg/dL (8.4-10.2); Carbon Dioxide 25 mmol/L (22-30); Chloride 103 mmol/L (98-107); Glucose 126 mg/dL (74-99); LDH 727 U/L (313-618); Magnesium 1.9 mg/dL (1.6-2.3); Non-African American GFR(CKD) 85 (>60 ml/min/1.73 sqM); Potassium 3.7 mmol/L (3.5-5.1); Sodium 135 mmol/L (137-145); Total Bilirubin 0.7 mg/dL (0.2-1.3); Total Protein 6.7 g/dL (6.3-8.2)
[2021-03-21] MEDS ORDERED: AZITHROMYCIN 500 MG in SODIUM CHLORIDE 0.9% 250 ML IVPB STA (01:08)
[2021-03-21] MEDS ORDERED: cefTRIAXone IN SWFI 1,000 MG/10 ML SYRINGE IVP STA (01:08)
[2021-03-21] MEDS ORDERED: IPRATROPIUM-ALBUTEROL 3 ML NEB INHALATION PRN (01:09)
[2021-03-21] MEDS ORDERED: IPRATROPIUM-ALBUTEROL 3 ML NEB INHALATION STA (01:09)
[2021-03-21] MEDS ORDERED: NALOXONE 0.4 MG/ML 1 ML VIAL IV PRN (01:27)
[2021-03-21] MEDS ORDERED: MORPHINE SULFATE 4 MG/ML SYRINGE IV PRN (01:27)
[2021-03-21] MEDS ORDERED: ONDANSETRON 4 MG/2 ML VIAL IVP PRN (01:27)
[2021-03-21] MEDS: SODIUM CHLORIDE 0.9% 1,000 ML IV SCH ×2 (03:17→19:50)
[2021-03-21 04:11] LABS: Appearance,Urine Clear (Clear); Bacteria,Urine Rare /hpf; Bilirubin,Urine Negative (Negative); Blood,Urine Trace (Negative); Color,Urine Yellow; Glucose,Urine (UA) Negative (Negative); Ketones,Urine Negative (Negative); Leukocyte Esterase,Urine Moderate (Negative); Nitrite,Urine Negative (Negative); Protein,Urine Trace (Negative); RBC,Urine 1 /hpf (0-5); Specific Gravity,Urine 1.021 (1.001-1.035); Squamous Epithelial Cell,Urine 1 /hpf (0-4); Urobilinogen,Urine <2.0 mg/dL (<2.0); WBC,Urine 8 /hpf (0-5)
[2021-03-21] MEDS ORDERED: IOPAMIDOL CONTRAST (ORAL USE) VIAL PO PRN (05:00)
[2021-03-21] MEDS ORDERED: ALPRAZolam 0.25 MG TAB PO PRN (05:01)
--- NOTE | 2021-03-21 05:19 | P.HPIM ---
History of Present Illness H&P Date: 03/21/21 Chief Complaint: Generalized body aches 65-year-old female with hypertension and hyperlipidemia Patient claims to be at baseline status of health however on March 20 she w adarsh up having some chills and diffuse body aches she felt very sick weak and tired and decided to stay in bed all day. Later on during the day she started having low-grade fevers worsening chills and worsening body aches she felt congested in her nose and throat but denies any loss of smell or taste sensation denies any diarrhea or urinary changes denies any coughing or shortness of breath denies any chest pain she decided to come to the ED to get tested for Covid however she denies any known sick contact, she lives with her was asymptomatic. Patient is not vaccinated to Covid however she didn't get Covid infection back in October of this year She otherwise denies any traveling or hospitalization she denies any nausea vomiting or diarrhea. In the ED her white count was 26.3, elevated LDH and CRP, chest x-ray showed no acute disease, Covid testing was negative Upon my evaluation patient is complaining of worsening congestion and feeling even more sick. She's having some left upper quadrant abdominal discomfort Review of Systems Pertinent positives as noted in HPI. All other systems were reviewed and are negative Past Medical History Past Medical History: GERD/Reflux, Hyperlipidemia, Hypertension Additional Past Medical History / Comment(s): LE EDEMA History of Any Multi-Drug Resistant Organisms: None Reported Past Surgical History: Appendectomy, Cholecystectomy, Hernia Repair, Hysterectomy Past Anesthesia/Blood Transfusion Reactions: No Reported Reaction Past Psychological History: Depression Smoking Status: Never smoker Past Alcohol Use History: None Reported Past Drug Use History: None Reported - Past Family History Mother Family Medical History: No Reported History Medications and Allergies Home Medications Medication Instructions Recorded Confirmed Type Aspirin 325 mg PO DAILY 11/14/17 03/20/21 History Furosemide [Lasix] 40 mg PO DAILY 11/14/17 03/20/21 History Metoprolol Tartrate [Lopressor] 50 mg PO HS 11/14/17 03/20/21 History Naproxen Sodium [Aleve] 220 mg PO BID PRN 11/14/17 03/20/21 History Omeprazole 20 mg PO DAILY 11/14/17 03/20/21 History Sertraline [Zoloft] 100 mg PO DAILY 11/14/17 03/20/21 History Simvastatin [Zocor] 20 mg PO HS 11/14/17 03/20/21 History Losartan Potassium [Cozaar] 100 mg PO DAILY 03/20/21 03/20/21 History Montelukast Sodium [Singulair] 10 mg PO HS 03/20/21 03/20/21 History Potassium Chloride ER [K-Dur 10] 20 meq PO DAILY 03/20/21 03/20/21 History amLODIPine [Norvasc] 10 mg PO DAILY 03/20/21 03/20/21 History buPROPion XL [Wellbutrin XL] 150 mg PO DAILY 03/20/21 03/20/21 History hydroCHLOROthiazide 25 mg PO DAILY 03/20/21 03/20/21 History Allergies Allergy/AdvReac Type Severity Reaction Status Date / Time No Known Allergies Allergy Verified 03/20/21 22:54 Physical Exam Vitals: Vital Signs Temp Pulse Pulse Resp BP BP Pulse Ox 03/21/21 02:37 98.7 F 74 18 134/62 90 L 03/21/21 01:51 98.5 F 71 18 123/57 95 03/20/21 20:18 98.1 F 74 22 157/69 94 L Intake and Output 03/20/21 03/20/21 03/21/21 14:59 22:59 06:59 Other: Weight 136.078 kg 136.078 kg Constitutional: No acute distress, conversant, pleasant Eyes: Anicteric sclerae, moist conjunctiva, Pupils equal round reactive to light ENMT: NC/AT Oropharynx clear, no erythema, or exudates Neck: Supple, FROM, no masses, or JVD No carotid bruits No thyromegaly Lungs: Good breath sounds throughout with scattered end expiratory wheezing Clear to percussion Normal respiratory effort, no accessory muscle use Cardiovascular: Heart regular in rate and rhythm, No murmurs, gallops, or rubs No peripheral edema Abdominal: Soft Tenderness to palpation over the left upper quadrant and left flank with deep palpation, no guarding, rebound or rigidity Abdomen moving with respiration Normoactive bowel sounds No hepatomegaly, No splenomegaly No palpable mass No abdominal wall hernia noted Skin: Normal temperature, tone, texture, turgor No induration No subcutaneous nodules No rash, lesions No ulcers Extremities: No digital cyanosis No clubbing Pedal pulses intact and symmetrical Radial pulses intact and symmetrical No calf tenderness Psychiatric: Alert and oriented to person, place and time Appropriate affect fair judgement Neuro Muscles Strength 5/5 in all 4 extremities Sensation to light touch grossly present throughout Cranial nerves II-XII grossly intact No focal sensory deficits Lymphatics: no palpable cervical or supraclavicular , or inguinal lymph nodes Results CBC & Chem 7: 03/20/21 22:52 03/21/21 00:00 Labs: Abnormal Lab Results - Last 24 Hours (Table) 03/20/21 03/21/21 03/21/21 Range/Units 22:52 00:00 03:55 WBC 26.3 H (3.8-10.6) k/uL Neutrophils # 23.5 H (1.3-7.7) k/uL Sodium 135 L (137-145) mmol/L BUN 20 H (7-17) mg/dL Glucose 126 H (74-99) mg/dL Lactate Dehydrogenase 727 H (313-618) U/L C-Reactive Protein 8.0 H (<1.0) mg/dL Urine Protein Trace H (Negative) Urine Blood Trace H (Negative) Ur Leukocyte Esterase Moderate H (Negative) Urine WBC 8 H (0-5) /hpf Urine Bacteria Rare H (None) /hpf Thrombosis Risk Factor Assmnt - Choose All That Apply Each Factor Represents 1 point: Obesity (BMI >25) Each Risk Factor Represents 2 Points: Age 61-74 years Other congenital or acquired thrombophilia - If yes, enter type in comment: No Thrombosis Risk Factor Assessment Total Risk Factor Score: 3 Thrombosis Risk Factor Assessment Level: Moderate Risk Assessment and Plan Assessment: Leukocytosis with diffuse body aches No identifiable focus of infection Covid testing negative Abdominal tenderness over left upper quadrant, check CT of the abdomen with and without contrast to rule out any intra-abdominal pathology Check another viral syndromes check influenza A and B check for RSV Follow-up blood cultures Patient received 1 dose of antibiotics in the ED azithromycin and Rocephin Tylenol for fever Urine analysis unremarkable Chest x-ray unremarkable Symptomatic control of congestion with Claritin Breathing treatment as needed Xanax for anxiety Hypertension Continue home medications Hyperlipidemia hold statin due to diffuse body aches Check creatine kinase, rule out rhabdo LDH elevated, CRP elevated. Suspicion of Covid is high due to pandemic however patient is having significant leukocytosis which can indicate bacterial infection Check d-dimer CODE STATUS: Full code DVT prophylaxis: Pepcid subcu 3 times a day Discussed with: Patient, ER, RN Anticipated length of stay more than [address]: Home A total of 75 minutes was spent on the care of this complex patient more than 50% of the time was spent in counseling and care coordination.
[2021-03-21] MEDS: LORATADINE 10 MG TAB PO SCH ×2 (05:58→08:52)
[2021-03-21] MEDS: TIOTROPIUM 2.5 MCG INHALER INHALATION PRN (08:17)
[2021-03-21] MEDS: ALBUTEROL HFA INHALER INHALATION SCH ×4 (08:17→20:11)
--- NOTE | 2021-03-21 08:20 | CT ---
EXAMINATION TYPE: CT abdomen pelvis w con DATE OF EXAM: 03/21/2021 HISTORY: No complaints at time of scan. Elevated WBC CT DLP: 3530.4mGycm Automated Exposure Control for Dose Reduction was Utilized. CONTRAST: CT scan of the abdomen and pelvis is performed with IV Contrast, patient injected with 100 mL of Isov ue 300. COMPARISON: 02/08/2011 FINDINGS: LUNG BASES: Patchy groundglass opacities demonstrated in the lung bases and right middle lobe. Trace bilateral pleural effusion. INCLUDED CARDIAC STRUCTURES: No cardiomegaly or pericardial effusion seen. Partially seen intracardia c calcifications could represent atherosclerosis or valvular changes. LIVER: No significant abnormality is appreciated. GALLBLADDER : Surgically removed. BILIARY TREE: No abnormal biliary tree dilation. PANCREAS: No significant abnormality is seen. SPLEEN: No significant abnormality is seen. ADRENALS: No significant abnormality is seen. KIDNEYS AND URETERS: No significant abnormality is seen. URINARY BLADDER: Partially distended ESOPHAGUS: No significant abnormality is seen. STOMACH: No significant abnormality is seen. SMALL BOWEL: No significant abnormality is seen. LARGE BOWEL: No significant abnormality is seen. APPENDIX: Not definitely identified. HERNIAS: No significant abnormality is seen. UTERUS/ADNEXA: Postsurgical changes from hysterectomy. There is a soft tissue density in the left adn exal region series 7 image 71 measuring 4.5 x 4 cm (transverse, craniocaudal). PERITONEUM/MESENTRY: No pneumoperitoneum or ascites. LYMPH NODES: No enlarged retroperitoneal lymph nodes. Prominent lymph nodes are seen in the left ingu inal area with mild surrounding fat stranding. MAJOR VASCULAR STRUCTURES: Nonaneurysmal aorta. Unremarkable inferior vena cava. OSSEOUS STRUCTURES: No significant abnormality is seen. IMPRESSION: 1. No evidence for acute abdominal or pelvic processes. 2. Soft tissue density left adnexal region measuring 4.5 x 4 cm, unknown clinical significance at thi s time, could represent an ovarian mass or an enlarged lymph node, recommend follow-up with transabdo vargas/transvaginal exam to rule out ovarian mass. 3. Mild fat stranding in the left inguinal area with mild prominence of left inguinal lymph nodes cli nical correlation recommended. 4. Patchy airspace disease concerning for multifocal pneumonia, trace bilateral pleural effusion.
[2021-03-21] MEDS: ASPIRIN 325 MG TAB PO SCH (08:52)
[2021-03-21] MEDS: amLODIPine 10 MG TAB PO SCH (08:52)
[2021-03-21] MEDS: hydroCHLOROthiazide 25 MG TAB PO SCH (08:52)
[2021-03-21] MEDS: LOSARTAN 50 MG TAB PO SCH (08:52)
[2021-03-21] MEDS: SERTRALINE 100 MG TAB PO SCH (08:52)
[2021-03-21] MEDS: buPROPion XL 150 MG TAB.ER.24H PO SCH (08:52)
[2021-03-21] MEDS: PANTOPRAZOLE 40 MG TABLET PO SCH (08:52)
--- NOTE | 2021-03-21 09:20 | P.PN ---
<Gil Brady - Last Filed: 03/21/21 15:31> Subjective Progress Note Date: 03/21/21 Hospital course: Patient is a 65-year-old female with a past medical history of hypertension, h yperlipidemia, GERD, and chronic bilateral lower extremity edema. She presented to the hospital on 03/20/21 with a chief complaint of generalized body aches, chills, and fever. Patient states these symptoms came on suddenly upon awakening that morning and progressively worsened throughout the day accompanied by significant fatigue and weakness so she came to the ER for further evaluation. In the emergency department patient was seen and fully evaluated. Labs completed revealing an elevated d-dimer of 0.94, LDH of 727, CRP of 8.0, WBC count of 26.3, prerenal azotemia with BUN of 20. Urinalysis was negative for infection. Covid 19 PCR x2 negative, influenza A and B negative, RSV negative. Chest x-ray negative for acute cardiopulmonary process. EKG showing normal sinus rhythm at 75 bpm with no noted T-wave or ST abnormalities. CT abdomen and pelvis negative for acute intra-abdominal process however did show patchy airspace disease concerning for multifocal pneumonia with trace bilateral pleural effusions, mild fat stranding in the left inguinal area with mild prominence of left inguinal lymph nodes, and soft tissue density left adnexal region measuring 4.5 x 4 cm of unknown clinical significance possibly representing an ovarian mass versus enlarged lymph node. Blood cultures positive for gram positive cocci. Patient to be started on IV antibiotic vancomycin and repeat cultures being drawn. Venous Doppler completed of left lower extremity secondary to tenderness noted upon assessment, Doppler results negative for DVT however revealing hypoechoic area with hyperechoic center and vascular hilum seen in the left groin measuring 2.5 x 4.5 x 1.0 cm. Transvaginal ultrasound ordered and Infectious disease and BATTING MACHINE OPERATOR consulted. Physical examination: 03/21/21: Patient reports persistent generalized body aches and pain, chills, and generally feeling unwell. She denies having any headache, lightheadedness, dizziness, changes in vision or hearing, sore throat or dysphasia, chest pain or palpitations, or shortness of breath at this time. Her vital signs have remained stable throughout hospitalization with temperature high of 99.0F. SpO2 91% on 2 L. Blood cultures positive for gram positive cocci, vancomycin initiated as well as repeat blood cultures. Infectious disease consulted. CT revealing multifocal pneumonia as well as concerns of soft tissue density in the left adnexal region measuring 4.5 x 4 cm unclear etiology possible lymph node versus ovarian mass. Upon assessment patient did complain of pain to left posterior thigh Vital signs reviewed and stable. General: Nontoxic, no distress and appears stated age. Morbidly obese. Derm: Skin warm and dry, normal coloration for ethnicity. Head: Atraumatic, normocephalic and symmetric. Eyes: EOMs intact, no lid lag, and anicteric sclera Mouth: no lip lesions, mucus membranes moist Cardiovascular: regular rate and rhythm with normal S1S2, no murmur, positive posterior tibial pulses bilaterally, and cap refill < 2 seconds. Lungs: Respirations even, regular, and unlabored on room air. Lungs CTA bilaterally, no rhonchi, no rales, no wheezing, and no accessory muscle usage. Abdominal: Obese abdomen soft, nontender to palpation, no guarding, no appreciable organomegaly Ext: ROM intact. No gross muscle atrophy, bilateral lower extremity nonpitting edema, patient complains of pain to posterior left thigh increased pain upon palpation. Neuro: Speech clear, face symmetrical and CN II-XII grossly intact with no noted focal neuro deficits Psych: Alert and oriented to person, place, time, and situation. Appropriate and pleasant affect. Assessment and Plan of Care: Gram-positive cocci bacteremia with a chief complaint of generalized body aches, chills, and fever -Leukocytosis with WBC count of 26.3 -Blood culture positive for gram positive cocci -CT abdomen and pelvis negative for acute intra-abdominal process however did show patchy airspace disease concerning for multifocal pneumonia with trace bilateral pleural effusions, mild fat stranding in the left inguinal area with mild prominence of left inguinal lymph nodes, and soft tissue density left adnexal region measuring 4.5 x 4 cm of unknown clinical significance possibly re presenting an ovarian mass versus enlarged lymph node. -Blood cultures positive for gram positive cocci. -Patient to be started on IV antibiotic vancomycin and repeat cultures being drawn. -Venous Doppler completed of left lower extremity secondary to tenderness noted upon assessment, Doppler results negative for DVT, however revealing hypoechoic area with hyperechoic center and vascular hilum seen in the left groin measuring 2.5 x 4.5 x 1.0 cm. -Transvaginal ultrasound ordered and -Infectious disease consulted -BATTING MACHINE OPERATOR consulted. Hypertension -Monitor vital signs and continue daily medication regimen with amlodipine, losartan, and metoprolol. Hyperlipidemia -Initially statin was held until rhabdomyolysis was ruled out. Statin may be resumed at this time in the form of simvastatin 20 mg nightly. CODE STATUS: Full code DVT prophylaxis: Heparin Discussed with: Patient and RN Anticipated discharge date: Clinical course to determine Anticipated discharge place: Home A total of 45 minutes was spent on the care of this complex patient more than 50% of the time was spent in counseling and care coordination. Objective - Vital Signs Vital signs: Vital Signs Temp 99.0 F 03/21/21 07:00 Pulse 85 03/21/21 07:00 Resp 16 03/21/21 07:00 BP 171/66 03/21/21 07:00 Pulse Ox 91 L 03/21/21 07:00 Intake & Output 03/20/21 03/21/21 03/21/21 18:59 06:59 18:59 Weight 136.078 kg Other: # Voids 2 - Labs CBC & Chem 7: 03/20/21 22:52 03/21/21 00:00 Labs: Abnormal Lab Results - Last 24 Hours (Table) 03/20/21 03/21/21 03/21/21 Range/Units 22:52 00:00 03:55 WBC 26.3 H (3.8-10.6) k/uL Neutrophils # 23.5 H (1.3-7.7) k/uL D-Dimer (<0.60) mg/L FEU Sodium 135 L (137-145) mmol/L BUN 20 H (7-17) mg/dL Glucose 126 H (74-99) mg/dL Lactate Dehydrogenase 727 H (313-618) U/L C-Reactive Protein 8.0 H (<1.0) mg/dL Urine Protein Trace H (Negative) Urine Blood Trace H (Negative) Ur Leukocyte Esterase Moderate H (Negative) Urine WBC 8 H (0-5) /hpf Urine Bacteria Rare H (None) /hpf 03/21/21 Range/Units 05:57 WBC (3.8-10.6) k/uL Neutrophils # (1.3-7.7) k/uL D-Dimer 0.94 H (<0.60) mg/L FEU Sodium (137-145) mmol/L BUN (7-17) mg/dL Glucose (74-99) mg/dL Lactate Dehydrogenase (313-618) U/L C-Reactive Protein (<1.0) mg/dL Urine Protein (Negative) Urine Blood (Negative) Ur Leukocyte Esterase (Negative) Urine WBC (0-5) /hpf Urine Bacteria (None) /hpf <Corine Mckeon - Last Filed: 03/21/21 18:53> Subjective Gil Brady NP rendered care for this patient independently, reviewed the findings and plan as documented in the note above. I did not physically speak with or examine the patient on this date. Objective - Vital Signs Vital signs: Vital Signs Temp 98.7 F 03/21/21 14:58 Pulse 76 03/21/21 14:58 Resp 16 03/21/21 14:58 BP 150/69 03/21/21 14:58 Pulse Ox 93 L 03/21/21 14:58 Intake & Output 03/20/21 03/21/21 03/21/21 18:59 06:59 18:59 Weight 136.078 kg Other: # Voids 2 1 - Labs CBC & Chem 7: 03/20/21 22:52 03/21/21 00:00 Labs: Abnormal Lab Results - Last 24 Hours (Table) 03/20/21 03/21/21 03/21/21 Range/Units 22:52 00:00 03:55 WBC 26.3 H (3.8-10.6) k/uL Neutrophils # 23.5 H (1.3-7.7) k/uL D-Dimer (<0.60) mg/L FEU Sodium 135 L (137-145) mmol/L BUN 20 H (7-17) mg/dL Glucose 126 H (74-99) mg/dL Lactate Dehydrogenase 727 H (313-618) U/L C-Reactive Protein 8.0 H (<1.0) mg/dL Urine Protein Trace H (Negative) Urine Blood Trace H (Negative) Ur Leukocyte Esterase Moderate H (Negative) Urine WBC 8 H (0-5) /hpf Urine Bacteria Rare H (None) /hpf 03/21/21 Range/Units 05:57 WBC (3.8-10.6) k/uL Neutrophils # (1.3-7.7) k/uL D-Dimer 0.94 H (<0.60) mg/L FEU Sodium (137-145) mmol/L BUN (7-17) mg/dL Glucose (74-99) mg/dL Lactate Dehydrogenase (313-618) U/L C-Reactive Protein (<1.0) mg/dL Urine Protein (Negative) Urine Blood (Negative) Ur Leukocyte Esterase (Negative) Urine WBC (0-5) /hpf Urine Bacteria (None) /hpf Microbiology - Last 24 Hours (Table) 03/21/21 00:00 Blood Culture Gram Stain - Preliminary Blood Blood Culture - Preliminary Strep agalactiae - (group b) 03/21/21 00:00 Blood Culture - Final Blood
[2021-03-21] MEDS: IBUPROFEN 400 MG TAB PO PRN ×2 (10:34→21:06)
[2021-03-21] MEDS ORDERED: VANCOMYCIN IV PER PHARMACY 1 EACH MISC MISCELLANE PRN (13:56)
--- NOTE | 2021-03-21 13:56 | US ---
EXAMINATION TYPE: US venous doppler duplex LE LT DATE OF EXAM: 03/21/2021 1:27 PM COMPARISON: NONE CLINICAL HISTORY: pain/swelling to left upper posterior thigh. Pain and swelling to left leg. No hx o f DVT. Patient does not take blood thinners. SIDE PERFORMED: Left TECHNIQUE: The lower extremity deep venous system is examined utilizing real time linear array sonog michael with graded compression, doppler sonography and color-flow sonography. VESSELS IMAGED: Common Femoral Vein Deep Femoral Vein Greater Saphenous Vein * Femoral Vein Popliteal Vein Small Saphenous Vein * Proximal Calf Veins (* superficial vessels) Limited due to patient body habitus. Left Leg: Hypoechoic area with hyperechoic center and vascular hilum seen in the left groin: 2.5 x 4 .5 x 1.0 cm. No evidence of DVT in veins imaged at this time. IMPRESSION: 1.No evidence for deep interposes the left lower extremity. 2.Prominent left inguinal lymph node. Likely reactive. Correlate clinically.
[2021-03-21] MEDS ORDERED: VANCOMYCIN 2,000 MG in SODIUM CHLORIDE 0.9% 500 ML 500 ML IVPB ONE (15:00)
[2021-03-21] MEDS: HEPARIN SODIUM,PORCINE/PF 5,000 UNIT/0.5 ML SYRINGE SQ SCH (16:51)
[2021-03-21] MEDS: MONTELUKAST 10 MG TAB PO SCH (20:59)
[2021-03-21] MEDS: METOPROLOL TARTRATE 50 MG TAB PO SCH (20:59)
[2021-03-21] MEDS: diphenhydrAMINE 25 MG CAP PO SCH (20:59)
[2021-03-21] MEDS: ATORVASTATIN 10 MG TAB PO SCH (20:59)
[2021-03-21] MEDS: ACETAMINOPHEN TAB 325 MG TAB PO PRN (21:08)
--- NOTE | 2021-03-21 22:47 | US ---
EXAMINATION TYPE: US pelvis complete transvag DATE OF EXAM: 03/21/2021 COMPARISON: CT CLINICAL HISTORY: CT revealing possible ovarian mass. Hysterectomy and right oophorectomy; patient st ated still has left ovary. TECHNIQUE: Transabdominal (TA) and Transvaginal per ordering physician. Transabdominal sonographic images of the pelvis were acquired. Transvaginal sonographic images were medically necessary to bett er assess the following anatomy: left adnexa. US exam is technically limited by very large body habit us. Date of LMP: NA as is post hysterectomy EXAM MEASUREMENTS: Uterus: surgically removed Endometrial Stripe: surgically removed Right Ovary: surgically removed Left Ovary: not seen TA or TV US 1. Left Ovary: not seen 2. Bilateral Adnexa: no masses seen 3. Posterior cul-de-sac: wnl IMPRESSION: No pelvic mass. No free fluid in the pelvis.
--- NOTE | 2021-03-21 23:11 | P.CONS ---
History of Present Illness - Reason for Consult Consult date: 03/21/21 Bacteremia Requesting physician: Gil Brady - Chief Complaint weakenss and body aches x 1 day - History of Present Illness History of present illness : Patient is 65-year-old female who presented to [facility] ER last night for evaluation of chills body a ches felt sick week and tried symptom has been going on for a day before presentation to the hospital patient denies having headache she has slight congestion in the nose and throat patient denies having any cough shortness of breath no chest pain some nausea but no vomiting no abdominal pain or any diarrhea patient on presentation to the hospital was afebrile mild hypoxemia with O2 sat between 90 to 94% patient did have white count of 26,000 creatinine 0.7 follow enzymes are normal CRP 8.0 urine with moderate leukocyte esterase in the WBC jacobs PCR has been negative x2 blood cultures came back positive with gram-positive cocci patient was started on vancomycin infectious disease was consulted for further management of antibiotic therapy patient did have a chest x-ray no active cardiopulmonary disease she also have a CT of abdominal pelvis with no evidence for acute abdominal pelvic process soft tissue density in the left adnexa mild fat stranding in the left inguinal area and prominence of left inguinal lymph nodes patient airspace disease concerning for multifocal pneumonia ID was consulted for further management of antibiotic therapy Review of system: CONSTITUTIONAL: Positive for weakness along with the fever. EYES: No complaint. ENT: No complaint. RESPIRATORY: As per history of present illness CARDIOVASCULAR: No complaint. GENITOURINARY: No complaint. GASTROINTESTINAL: No complaint. MUSCULOSKELETAL: No complaint. INTEGUMENTARY: No complaint. PSYCHOLOGIC: No complaint. ENDOCRINE: No complaint. NEUROLOGIC: No complaint. Past medical history : Reviewed, documented below Past surgical history : Reviewed, documented below Social history: Reviewed, documented below Medications: Reviewed, as documented below EXAMINATION: Vital sigans= Reviewed and documented below GENERAL DESCRIPTION: Middle-aged female lying in bed, no distress. No tachypnea or accessory muscle of respiration use. HEENT: Shows Pallor , no scleral icterus. Oral mucous membrane is dry. NECK: Trachea central, no thyromegaly. LUNGS: Unlabored breathing. Clear to auscultation anteriorly. No wheeze or crackle. HEART: S1, S2, regular rate and rhythm. ABDOMEN: Soft, no tenderness , guarding or rigidity EXTREMITIES: No edema of feet. SKIN: No rash, no masses palpable. NEUROLOGICAL: The patient is awake, alert, oriented x3, mood and affect normal. LABS AND RADIOLOGY: Reviewed results see below Assessment : Patient with gram-positive bacteremia in this patient presented to hospital with generalized body aches minimal shortness of breath and a cough in this patient who did have a extensive work-up with initial chest x-ray negative CT abdominal pelvis pointing towards the left groin area however the patient did not have significant symptoms to the left groin and abnormality on clinical examination abdominal soft on clinical examination and he was not significantly positive Plan: 1-blood cultures will be repeated document clearance of bacteremia 2-vancomycin pharmacy to dose her with a target trough of 15 while watching her kidney function and Vanco trough closely. 3-we will wait for the ID of this pathogen to direct further diagnostic work-up We will follow on clinical condition and cultures to further adjust medication if needed Thank you for this consultation we will follow the patient along with you Past Medical History Past Medical History: GERD/Reflux, Hyperlipidemia, Hypertension Additional Past Medical History / Comment(s): LE EDEMA History of Any Multi-Drug Resistant Organisms: None Reported Past Surgical History: Appendectomy, Cholecystectomy, Hernia Repair, Hysterectomy Past Anesthesia/Blood Transfusion Reactions: No Reported Reaction Past Psychological History: Depression Smoking Status: Never smoker Past Alcohol Use History: None Reported Past Drug Use History: None Reported - Past Family History Mother Family Medical History: No Reported History Medications and Allergies Home Medications Medication Instructions Recorded Confirmed Type Aspirin 325 mg PO DAILY 11/14/17 03/20/21 History Furosemide [Lasix] 40 mg PO DAILY 11/14/17 03/20/21 History Metoprolol Tartrate [Lopressor] 50 mg PO HS 11/14/17 03/20/21 History Naproxen Sodium [Aleve] 220 mg PO BID PRN 11/14/17 03/20/21 History Omeprazole 20 mg PO DAILY 11/14/17 03/20/21 History Sertraline [Zoloft] 100 mg PO DAILY 11/14/17 03/20/21 History Simvastatin [Zocor] 20 mg PO HS 11/14/17 03/20/21 History Losartan Potassium [Cozaar] 100 mg PO DAILY 03/20/21 03/20/21 History Montelukast Sodium [Singulair] 10 mg PO HS 03/20/21 03/20/21 History Potassium Chloride ER [K-Dur 10] 20 meq PO DAILY 03/20/21 03/20/21 History amLODIPine [Norvasc] 10 mg PO DAILY 03/20/21 03/20/21 History buPROPion XL [Wellbutrin XL] 150 mg PO DAILY 03/20/21 03/20/21 History hydroCHLOROthiazide 25 mg PO DAILY 03/20/21 03/20/21 History Allergies Allergy/AdvReac Type Severity Reaction Status Date / Time No Known Allergies Allergy Verified 03/20/21 22:54 Physical Exam Vitals: Vital Signs Temp Pulse Pulse Resp BP BP Pulse Ox 03/21/21 14:58 98.7 F 76 16 150/69 93 L 03/21/21 08:00 85 16 03/21/21 07:00 99.0 F 85 16 171/66 91 L 03/21/21 02:37 98.7 F 74 18 134/62 90 L 03/21/21 01:51 98.5 F 71 18 123/57 95 03/20/21 20:18 98.1 F 74 22 157/69 94 L Intake and Output 03/21/21 03/21/21 03/21/21 06:59 14:59 22:59 Other: # Voids 2 Weight 136.078 kg Results CBC & Chem 7: 03/20/21 22:52 03/21/21 00:00 Labs: Abnormal Lab Results - Last 24 Hours (Table) 03/20/21 03/21/21 03/21/21 Range/Units 22:52 00:00 03:55 WBC 26.3 H (3.8-10.6) k/uL Neutrophils # 23.5 H (1.3-7.7) k/uL D-Dimer (<0.60) mg/L FEU Sodium 135 L (137-145) mmol/L BUN 20 H (7-17) mg/dL Glucose 126 H (74-99) mg/dL Lactate Dehydrogenase 727 H (313-618) U/L C-Reactive Protein 8.0 H (<1.0) mg/dL Urine Protein Trace H (Negative) Urine Blood Trace H (Negative) Ur Leukocyte Esterase Moderate H (Negative) Urine WBC 8 H (0-5) /hpf Urine Bacteria Rare H (None) /hpf 03/21/21 Range/Units 05:57 WBC (3.8-10.6) k/uL Neutrophils # (1.3-7.7) k/uL D-Dimer 0.94 H (<0.60) mg/L FEU Sodium (137-145) mmol/L BUN (7-17) mg/dL Glucose (74-99) mg/dL Lactate Dehydrogenase (313-618) U/L C-Reactive Protein (<1.0) mg/dL Urine Protein (Negative) Urine Blood (Negative) Ur Leukocyte Esterase (Negative) Urine WBC (0-5) /hpf Urine Bacteria (None) /hpf Microbiology - Last 24 Hours (Table) 03/21/21 00:00 Blood Culture - Final Blood
[2021-03-22] MEDS: SODIUM CHLORIDE 0.9% 1,000 ML IV SCH ×4 (00:18→23:50)
[2021-03-22] MEDS: HEPARIN SODIUM,PORCINE/PF 5,000 UNIT/0.5 ML SYRINGE SQ SCH ×4 (00:18→23:50)
[2021-03-22 05:35] LABS: ALT 18 U/L (4-34); AST 33 U/L (14-36); African American GFR (CKD) >90 (>60 ml/min/1.73 sqM); Albumin 3.4 g/dL (3.5-5.0); Albumin/Globulin Ratio 1.2; Alkaline Phosphatase 71 U/L (38-126); Anion Gap 7 mmol/L; Blood Urea Nitrogen 13 mg/dL (7-17); Carbon Dioxide 25 mmol/L (22-30); Chloride 107 mmol/L (98-107); Globulin 2.8 g/dL; Glucose 98 mg/dL (74-99); Non-African American GFR(CKD) >90 (>60 ml/min/1.73 sqM); Phosphorus 2.7 mg/dL (2.5-4.5); Potassium 3.8 mmol/L (3.5-5.1); Sodium 139 mmol/L (137-145); Total Bilirubin 0.6 mg/dL (0.2-1.3); Total Protein 6.2 g/dL (6.3-8.2)
[2021-03-22] MEDS ORDERED: VANCOMYCIN 2,000 MG in SODIUM CHLORIDE 0.9% 500 ML 500 ML IVPB SCH (06:00)
--- NOTE | 2021-03-22 06:44 | P.OBCN ---
History of Present Illness Consult date: 03/22/21 Reason for consult: other (Possible enlarged left ovary) Chief complaint: Shortness of breath and chills History of present illness: This patient is a pleasant 65-year-old female who is admitted proximally 2 days ago with complaints of shortness of breath and upper respiratory symptoms. Patient states that she's had Covid in the past and felt as though this was coming back. She was having some chills and body aches. She denies any fevers. On admission patient's white blood cell count was 26.3 and therefore imaging was done including a CAT scan of the abdominal and pelvic area. CAT scan showed a 4.5 x 4 cm soft tissue area of the left adnexa possibly an ovary versus lymph node. Patient's past gynecologic history is significant for a hysterectomy when she was young and a right salpingo-oophorectomy. She states that they did leave the left ovary at that time due to her age. Patient currently is still having shortness of breath and she reports developing diarrhea yesterday. Ultrasound was performed yesterday afternoon which did not show any evidence of an adnexal mass or ovary. Review of Systems Constitutional: Reports as per HPI, Reports chills, Reports fatigue, Reports lethargy, Reports malaise Menstruation: Reports amenorrhea Past Medical History Past Medical History: GERD/Reflux, Hyperlipidemia, Hypertension Additional Past Medical History / Comment(s): LE EDEMA History of Any Multi-Drug Resistant Organisms: None Reported Past Surgical History: Appendectomy, Cholecystectomy, Hernia Repair, Hysterectomy Past Anesthesia/Blood Transfusion Reactions: No Reported Reaction Past Psychological History: Depression Smoking Status: Never smoker Past Alcohol Use History: None Reported Past Drug Use History: None Reported - Past Family History Mother Family Medical History: No Reported History Medications and Allergies Home Medications Medication Instructions Recorded Confirmed Type Aspirin 325 mg PO DAILY 11/14/17 03/20/21 History Furosemide [Lasix] 40 mg PO DAILY 11/14/17 03/20/21 History Metoprolol Tartrate [Lopressor] 50 mg PO HS 11/14/17 03/20/21 History Naproxen Sodium [Aleve] 220 mg PO BID PRN 11/14/17 03/20/21 History Omeprazole 20 mg PO DAILY 11/14/17 03/20/21 History Sertraline [Zoloft] 100 mg PO DAILY 11/14/17 03/20/21 History Simvastatin [Zocor] 20 mg PO HS 11/14/17 03/20/21 History Losartan Potassium [Cozaar] 100 mg PO DAILY 03/20/21 03/20/21 History Montelukast Sodium [Singulair] 10 mg PO HS 03/20/21 03/20/21 History Potassium Chloride ER [K-Dur 10] 20 meq PO DAILY 03/20/21 03/20/21 History amLODIPine [Norvasc] 10 mg PO DAILY 03/20/21 03/20/21 History buPROPion XL [Wellbutrin XL] 150 mg PO DAILY 03/20/21 03/20/21 History hydroCHLOROthiazide 25 mg PO DAILY 03/20/21 03/20/21 History Allergies Allergy/AdvReac Type Severity Reaction Status Date / Time No Known Allergies Allergy Verified 03/20/21 22:54 Exam Vital Signs Temp Pulse Resp BP Pulse Ox 03/22/21 02:53 95 03/22/21 02:00 20 03/22/21 01:40 97.9 F 69 20 137/62 95 03/21/21 20:14 92 L 03/21/21 20:00 20 03/21/21 19:21 99.0 F 98 26 H 194/64 91 L 03/21/21 14:58 98.7 F 76 16 150/69 93 L 03/21/21 14:00 76 16 03/21/21 08:00 85 16 03/21/21 07:00 99.0 F 85 16 171/66 91 L Intake and Output 03/21/21 03/21/21 03/22/21 14:59 22:59 06:59 Intake Total 118 Balance 118 Intake: Oral 118 Other: # Voids 2 Results Transvaginal ultrasound and abdominal ultrasound yesterday showed no evidence of a left adnexal mass. Result Diagrams: 03/20/21 22:52 03/22/21 04:08 Abnormal Lab Results - Last 24 Hours (Table) 03/21/21 03/22/21 Range/Units 05:57 04:08 D-Dimer 0.94 H (<0.60) mg/L FEU Total Protein 6.2 L (6.3-8.2) g/dL Albumin 3.4 L (3.5-5.0) g/dL Microbiology - Last 24 Hours (Table) 03/21/21 00:15 Blood Culture - Preliminary Blood No Growth after 24 hours 03/21/21 00:00 Blood Culture Gram Stain - Preliminary Blood Blood Culture - Preliminary Strep agalactiae - (group b) 03/21/21 00:00 Blood Culture - Final Blood Assessment and Plan Assessment: This is a pleasant 65-year-old female who was found to have a questionable enlarged left ovary versus lymph node on CT imaging in the process of evaluation of elevated white blood cell count. Further imaging with transvaginal ultrasound does not confirm this to be an ovary. Due to the patient's habitus, unfortunately these imaging studies may be limited. Regardless, if this were a 4 cm left ovary, recommendations at this time would be to check a CA 125 (which I ordered) and if enlarging or persistent in 6 weeks then she would need a referral to [facility] oncology. At this point, this does not appear to be an enlarged left ovary; therefore we need to consider other sources including adenopathy or diverticular change. Her other symptomatology (chills, diarrhea, leukocytosis) are also not consistent with an ovarian process. My recommendations are to pursue non-gynecologic sources at this time and repeat imaging of that area in regards to the ovary in approximately 6 weeks. If elevated CA-125 or a persistent/enlarging left ovary then she would need a gynecology oncology referral. Thank you very much for this consultation. (1) Left adnexal tenderness Current Visit: Yes Status: Acute Code(s): R10.2 - PELVIC AND PERINEAL PAIN SNOMED Code(s): 366176202
--- NOTE | 2021-03-22 07:26 | XR ---
EXAMINATION TYPE: XR chest 1V DATE OF EXAM: 03/22/2021 COMPARISON: Radiograph March 20, 2021. HISTORY: Pneumonia TECHNIQUE: Single frontal view of the chest is obtained. FINDINGS: Cardiomediastinal silhouette and pulmonary vasculature are within normal limits. There is patchy and reticular opacity over the right greater than left lungs. IMPRESSION: Multifocal pneumonia similar to prior.
[2021-03-22 07:44] LABS: Glucose,Whole Blood 110 mg/dL (75-99)
[2021-03-22] MEDS: ASPIRIN 325 MG TAB PO SCH (08:41)
[2021-03-22] MEDS: SERTRALINE 100 MG TAB PO SCH (08:41)
[2021-03-22] MEDS: amLODIPine 10 MG TAB PO SCH (08:41)
[2021-03-22] MEDS: PANTOPRAZOLE 40 MG TABLET PO SCH (08:41)
[2021-03-22] MEDS: hydroCHLOROthiazide 25 MG TAB PO SCH (08:41)
[2021-03-22] MEDS: LOSARTAN 50 MG TAB PO SCH (08:41)
[2021-03-22] MEDS: LORATADINE 10 MG TAB PO SCH (08:41)
[2021-03-22] MEDS: ALBUTEROL HFA INHALER INHALATION SCH ×4 (08:46→19:13)
[2021-03-22] MEDS: TIOTROPIUM 2.5 MCG INHALER INHALATION PRN (08:46)
[2021-03-22] MEDS: IBUPROFEN 400 MG TAB PO PRN ×2 (08:46→21:04)
[2021-03-22 08:53] LABS: Basophils # (A) 0.06 X 10*3/uL (0.00-0.10); Basophils % (A) 0.4 %; Eosinophils # (A) 0.12 X 10*3/uL (0.04-0.35); Eosinophils % (A) 0.9 %; HCT 37.8 % (37.2-46.3); Lymphocytes # (A) 2.04 X 10*3/uL (0.90-5.00); Lymphocytes % (A) 15.3 %; MCH 28.2 pg (27.0-32.0); MCHC 31.7 g/dL (32.0-37.0); MCV 88.9 fL (80.0-97.0); Mean Platelet Volume 11.8 fL (9.5-12.2); Monocytes # (A) 0.94 X 10*3/uL (0.20-1.00); Neutrophils # (A) 10.09 X 10*3/uL (1.80-7.70); Neutrophils % (A) 75.6 %; Platelet Count 226 X 10*3/uL (140-440); RBC 4.25 X 10*6/uL (4.10-5.20); RDW 13.9 % (11.5-14.5); WBC 13.36 X 10*3/uL (4.50-10.00)
[2021-03-22] MEDS: buPROPion XL 150 MG TAB.ER.24H PO SCH (10:48)
--- NOTE | 2021-03-22 15:15 | P.PN ---
<Gil Brady - Last Filed: 03/22/21 14:53> Subjective Progress Note Date: 03/22/21 Hospital course: Patient is a 65-year-old female with a past medical history of hypertension, h yperlipidemia, GERD, and chronic bilateral lower extremity edema. She presented to the hospital on 03/20/21 with a chief complaint of generalized body aches, chills, and fever. Patient states these symptoms came on suddenly upon awakening that morning and progressively worsened throughout the day accompanied by significant fatigue and weakness so she came to the ER for further evaluation. In the emergency department patient was seen and fully evaluated. Labs completed revealing an elevated d-dimer of 0.94, LDH of 727, CRP of 8.0, WBC count of 26.3, prerenal azotemia with BUN of 20. Urinalysis was negative for infection. Covid 19 PCR x2 negative, influenza A and B negative, RSV negative. Chest x-ray negative for acute cardiopulmonary process. EKG showing normal sinus rhythm at 75 bpm with no noted T-wave or ST abnormalities. CT abdomen and pelvis negative for acute intra-abdominal process however did show patchy airspace disease concerning for multifocal pneumonia with trace bilateral pleural effusions, mild fat stranding in the left inguinal area with mild prominence of left inguinal lymph nodes, and soft tissue density left adnexal region measuring 4.5 x 4 cm of unknown clinical significance possibly representing an ovarian mass versus enlarged lymph node. Blood cultures positive for gram positive cocci. Patient to be started on IV antibiotics vancomycin and repeat cultures being drawn. Venous Doppler completed of left lower extremity secondary to tenderness noted upon assessment, Doppler results negative for DVT however revealing hypoechoic area with hyperechoic center and vascular hilum seen in the left groin measuring 2.5 x 4.5 x 1.0 cm. Transvaginal ultrasound ordered and Infectious disease and CHEMICAL LABORATORY TECHNICIAN consulted. Cultures positive for Strep agalactiae (group B). Vancomycin discontinued patient placed on Rocephin 2 g every 24 hours. Repeat chest x-ray confirming multifocal pneumonia. Pelvic/transvaginal ultrasound showing no pelvic mass and no free fluid within the pelvic. CHEMICAL LABORATORY TECHNICIAN seen and evaluated patient, ordered CA 125 and recommending patient to follow-up outpatient in 6 weeks to evaluate for enlarging/resolution of left ovary enlargement/lymphadenopathy. If CA-125 is elevated patient will need gynecological oncology referral. Physical examination: 03/22/21: Patient reports feeling slightly better today, stating she was actually able to get into the shower. She states she continues to have generalized body aches and pain accompanied by chills and generally feeling unwell. Patient continues to have tenderness with increased sensitivity to left leg. She reports improvement of left upper quadrant abdominal pain. She denies having any headache, lightheadedness, dizziness, chest pain, palpitations, or shortness of breath at this time. Does report having a horrible non-productive cough and experiencing dyspnea with exertion. She is currently on 4 L O2 with SpO2 of 91%. Leukocytosis improving with WBC count 13.36 from previous 26.3. Cultures positive for Strep agalactiae (group B). Vancomycin discontinued patient placed on Rocephin 2 g every 24 hours. Vital signs reviewed and stable. General: Nontoxic, no distress and appears stated age. Morbidly obese. Derm: Skin warm and dry, normal coloration for ethnicity. Head: Atraumatic, normocephalic and symmetric. Eyes: EOMs intact, no lid lag, and anicteric sclera Mouth: no lip lesions, mucus membranes moist Cardiovascular: regular rate and rhythm with normal S1S2, no murmur, positive posterior tibial pulses bilaterally, and cap refill < 2 seconds. Lungs: Respirations even, regular, and unlabored on room air. Lungs CTA bilaterally, no rhonchi, no rales, no wheezing, and no accessory muscle usage. Abdominal: Obese abdomen soft, nontender to palpation, no guarding, no appreciable organomegaly Ext: ROM intact. No gross muscle atrophy, bilateral lower extremity nonpitting edema, patient complains of pain to posterior left thigh increased pain upon palpation. Neuro: Speech clear, face symmetrical and CN II-XII grossly intact with no noted focal neuro deficits Psych: Alert and oriented to person, place, time, and situation. Appropriate and pleasant affect. Assessment and Plan of Care: Group B Streptococcus bacteremia -Leukocytosis with WBC count of 26.3 -Cultures positive for Strep agalactiae (group B). Vancomycin discontinued patient placed on Rocephin 2 g every 24 hours. -Infectious disease consulted -CHEMICAL LABORATORY TECHNICIAN consulted. Community Acquired Multifocal Pneumonia -Covid, influenza, and RSV negative. -Oxygenation to be administered and titrated as needed to maintain SPO2 equal to or greater than 92%. -Chest x-ray positive for multifocal pneumonia -Telemetry monitoring. -Duonebs as needed for SOB and/or wheezing. -Incentive Spirometry. -Antibiotics: Rocephin Abnormal imaging results with findings of left groin lymphadenopathy versus ovarian mass -CT abdomen and pelvis negative for acute intra-abdominal process however did show patchy airspace disease concerning for multifocal pneumonia with trace bilateral pleural effusions, mild fat stranding in the left inguinal area with mild prominence of left inguinal lymph nodes, and soft tissue density left adnexal region measuring 4.5 x 4 cm of unknown clinical significance possibly representing an ovarian mass versus enlarged lymph node. -Venous Doppler completed of left lower extremity secondary to tenderness noted upon assessment, Doppler results negative for DVT, however revealing hypoechoic area with hyperechoic center and vascular hilum seen in the left groin measuring 2.5 x 4.5 x 1.0 cm. -Transvaginal ultrasound ordered showing no significant abnormalities ruling out free fluid or pelvic mass. -CHEMICAL LABORATORY TECHNICIAN evaluated patient, ordered CA 125 and recommending patient to follow-up outpatient in 6 weeks to evaluate for enlarging/resolution of left ovary enlargement/lymphadenopathy. If CA-125 is elevated patient will need gynecological oncology referral. Hypertension -Monitor vital signs and continue daily medication regimen with amlodipine, losartan, and metoprolol. Hyperlipidemia -Initially statin was held until rhabdomyolysis was ruled out. Statin may be resumed at this time in the form of simvastatin 20 mg nightly. CODE STATUS: Full code DVT prophylaxis: Heparin Discussed with: Patient and RN Anticipated discharge date: Clinical course to determine Anticipated discharge place: Home A total of 45 minutes was spent on the care of this complex patient more than 50% of the time was spent in counseling and care coordination. Objective - Vital Signs Vital signs: Vital Signs Temp 98.2 F 03/22/21 07:50 Pulse 78 03/22/21 07:50 Resp 20 03/22/21 07:50 BP 157/78 03/22/21 07:50 Pulse Ox 91 L 03/22/21 07:50 Intake & Output 03/21/21 03/22/21 03/22/21 18:59 06:59 18:59 Intake Total 118 Balance 118 Intake: Oral 118 Other: Voiding Method Toilet # Voids 1 2 - Labs CBC & Chem 7: 03/22/21 04:08 03/22/21 04:08 Labs: Abnormal Lab Results - Last 24 Hours (Table) 03/21/21 03/22/21 03/22/21 Range/Units 19:31 04:08 04:08 WBC 13.36 H (4.50-10.00) X 10*3/uL MCHC 31.7 L (32.0-37.0) g/dL Immature Gran # 0.11 H (0.00-0.04) X 10*3/uL Neutrophils # 10.09 H (1.80-7.70) X 10*3/uL POC Glucose (mg/dL) (75-99) mg/dL Total Protein 6.2 L (6.3-8.2) g/dL Albumin 3.4 L (3.5-5.0) g/dL CA 19-9 Antigen 179.5 H (0.0-34.9) U/mL 03/22/21 Range/Units 07:38 WBC (4.50-10.00) X 10*3/uL MCHC (32.0-37.0) g/dL Immature Gran # (0.00-0.04) X 10*3/uL Neutrophils # (1.80-7.70) X 10*3/uL POC Glucose (mg/dL) 110 H (75-99) mg/dL Total Protein (6.3-8.2) g/dL Albumin (3.5-5.0) g/dL CA 19-9 Antigen (0.0-34.9) U/mL Microbiology - Last 24 Hours (Table) 03/21/21 00:15 Blood Culture - Preliminary Blood No Growth after 24 hours 03/21/21 00:00 Blood Culture Gram Stain - Preliminary Blood Blood Culture - Preliminary Strep agalactiae - (group b) 03/21/21 00:00 Blood Culture - Final Blood <Corine Mcekon - Last Filed: 03/22/21 16:59> Objective - Vital Signs Vital signs: Vital Signs Temp 97.8 F 03/22/21 15:00 Pulse 75 03/22/21 15:00 Resp 18 03/22/21 15:00 BP 154/62 03/22/21 15:00 Pulse Ox 92 L 03/22/21 15:00 Intake & Output 03/21/21 03/22/2121 18:59 06:59 18:59 Intake Total 118 Balance 118 Intake: Oral 118 Other: Voiding Method Toilet # Voids 1 2 - Labs CBC & Chem 7: 03/22/21 04:08 03/22/21 04:08 Labs: Abnormal Lab Results - Last 24 Hours (Table) 03/21/21 03/22/21 03/22/21 Range/Units 19:31 04:08 04:08 WBC 13.36 H (4.50-10.00) X 10*3/uL MCHC 31.7 L (32.0-37.0) g/dL Immature Gran # 0.11 H (0.00-0.04) X 10*3/uL Neutrophils # 10.09 H (1.80-7.70) X 10*3/uL POC Glucose (mg/dL) (75-99) mg/dL Total Protein 6.2 L (6.3-8.2) g/dL Albumin 3.4 L (3.5-5.0) g/dL CA 19-9 Antigen 179.5 H (0.0-34.9) U/mL 03/22/21 Range/Units 07:38 WBC (4.50-10.00) X 10*3/uL MCHC (32.0-37.0) g/dL Immature Gran # (0.00-0.04) X 10*3/uL Neutrophils # (1.80-7.70) X 10*3/uL POC Glucose (mg/dL) 110 H (75-99) mg/dL Total Protein (6.3-8.2) g/dL Albumin (3.5-5.0) g/dL CA 19-9 Antigen (0.0-34.9) U/mL Microbiology - Last 24 Hours (Table) 03/21/21 14:11 Blood Culture - Preliminary Blood No Growth after 24 hours 03/21/21 00:15 Blood Culture - Preliminary Blood No Growth after 24 hours 03/21/21 00:00 Blood Culture Gram Stain - Preliminary Blood Blood Culture - Preliminary Strep agalactiae - (group b) 03/21/21 00:00 Blood Culture - Final Blood Assessment and Plan Assessment: Patient seen and examined independently. Patient was also seen by Gil Brady NP and case was discussed. I am in agreement with subjective, physical exam, assessment and plan as written above and amended below. Reports that she is having worsening left knee pain, difficulty moving it, and a rash that occurred. General: non toxic, no distress, appears at stated age Derm: warm, dry Head: atraumatic, normocephalic, symmetric Eyes: EOMI, no lid lag, anicteric sclera Mouth: no lip lesion, mucus membranes moist Cardiovascular: S1S2 reg, no murmur, positive posterior tibial pulse bilateral, Lungs: Coarse breath sounds bilateral, no rhonchi, no rales , no accessory muscle use Ext: Small erythematous flat macules with some convalescent and scaling skin, no gross muscle atrophy, no edema, no contractures Psych: Alert, oriented, appropriate affect
[2021-03-22] MEDS ORDERED: ALBUTEROL NEBULIZED 2.5 MG/3 ML INHALATION ONE (15:23)
[2021-03-22] MEDS ORDERED: IPRATROPIUM-ALBUTEROL 3 ML NEB ONE (15:24)
[2021-03-22] MEDS: HYDROCORTISONE 1% OINT 28.35 GM TUBE TOPICAL SCH ×2 (16:38→20:50)
[2021-03-22] MEDS: ATORVASTATIN 10 MG TAB PO SCH (20:49)
[2021-03-22] MEDS: diphenhydrAMINE 25 MG CAP PO SCH (20:49)
[2021-03-22] MEDS: METOPROLOL TARTRATE 50 MG TAB PO SCH (20:49)
[2021-03-22] MEDS: MONTELUKAST 10 MG TAB PO SCH (20:49)
--- NOTE | 2021-03-22 23:51 | PN ---
PROGRESS NOTE DATE OF SERVICE: 03/22/2021 REASON FOR FOLLOWUP: Streptococcal bacteremia, possible left lower extremity cellulitis. INTERVAL HISTORY: The patient is afebrile. Still complaining of shortness of breath. Denies having any chest pain. Did have a cough with occasional sputum. No abdominal pain. He has been complaining of some swelling and redness to the left medial thigh area. PHYSICAL EXAMINATION: Blood pressure 125/71 with a pulse of 77, temperature 98.2. She is 93% on 4 L nasal cannula. General description is an elderly female up in the chair in no distress. Respiratory system: Unlabored breathing, clear to auscultation anteriorly. Heart S1, S2. Regular rate and rhythm. Abdomen soft, no tenderness. Left thigh did have swelling and redness, slightly warm to touch. LABS: Hemoglobin is 12.7, white count 13.36. BUN of 13, creatinine 0.64. Blood culture with Streptococcus agalactiae. ( ) negative so far. DIAGNOSTIC IMPRESSION AND PLAN: Patient with Streptococcus agalactiae bacteremia, concern for possible left medial thigh cellulitis. Patient to continue with Rocephin while monitor clinical course closely. Continue supportive care. MMODL / IJN: [id number] /
--- NOTE | 2021-03-23 06:59 | P.PN ---
Progress Note - Text Progress Note Date: 03/23/21 Patient's tumor markers returned yesterday. CA-125 is normal at 9.7. CA-19-9 is elevated at 179. This does not appear to be of ovarian origin and certainly one has to entertain a gastrointestinal source, however this very well may be just due to the patient's inflammatory process that is going on right now. I do not think at this point the patient needs to be referred to [facility] oncology but does need repeat imaging of the left adnexa in 6 weeks. Consider having medical oncology see the patient to address the elevated CA 19 9. No further intervention from a gynecologic standpoint.
[2021-03-23] MEDS: IBUPROFEN 400 MG TAB PO PRN (07:05)
[2021-03-23] MEDS: LOSARTAN 50 MG TAB PO SCH (07:05)
[2021-03-23] MEDS: ASPIRIN 325 MG TAB PO SCH (07:06)
[2021-03-23] MEDS: HEPARIN SODIUM,PORCINE/PF 5,000 UNIT/0.5 ML SYRINGE SQ SCH ×2 (07:06→15:40)
[2021-03-23] MEDS: SERTRALINE 100 MG TAB PO SCH (07:06)
[2021-03-23] MEDS: amLODIPine 10 MG TAB PO SCH (07:06)
[2021-03-23] MEDS: LORATADINE 10 MG TAB PO SCH (07:06)
[2021-03-23] MEDS: hydroCHLOROthiazide 25 MG TAB PO SCH (07:06)
[2021-03-23] MEDS: PANTOPRAZOLE 40 MG TABLET PO SCH (07:06)
[2021-03-23] MEDS: buPROPion XL 150 MG TAB.ER.24H PO SCH (07:07)
[2021-03-23] MEDS: SODIUM CHLORIDE 0.9% 1,000 ML IV SCH ×2 (07:08→15:40)
[2021-03-23] MEDS: HYDROCORTISONE 1% OINT 28.35 GM TUBE TOPICAL SCH ×3 (07:08→20:16)
[2021-03-23] MEDS: ALBUTEROL HFA INHALER INHALATION SCH ×4 (08:36→20:12)
[2021-03-23] MEDS: TIOTROPIUM 2.5 MCG INHALER INHALATION PRN (08:37)
--- NOTE | 2021-03-23 11:20 | P.PN ---
<Gil Brady - Last Filed: 03/23/21 11:11> Subjective Progress Note Date: 03/23/21 Hospital course: Patient is a 65-year-old female with a past medical history of hypertension, h yperlipidemia, GERD, and chronic bilateral lower extremity edema. She presented to the hospital on 03/20/21 with a chief complaint of generalized body aches, chills, and fever. Patient states these symptoms came on suddenly upon awakening that morning and progressively worsened throughout the day accompanied by significant fatigue and weakness so she came to the ER for further evaluation. In the emergency department patient was seen and fully evaluated. Labs completed revealing an elevated d-dimer of 0.94, LDH of 727, CRP of 8.0, WBC count of 26.3, prerenal azotemia with BUN of 20. Urinalysis was negative for infection. Covid 19 PCR x2 negative, influenza A and B negative, RSV negative. Chest x-ray negative for acute cardiopulmonary process. EKG showing normal sinus rhythm at 75 bpm with no noted T-wave or ST abnormalities. CT abdomen and pelvis negative for acute intra-abdominal process however did show patchy airspace disease concerning for multifocal pneumonia with trace bilateral pleural effusions, mild fat stranding in the left inguinal area with mild prominence of left inguinal lymph nodes, and soft tissue density left adnexal region measuring 4.5 x 4 cm of unknown clinical significance possibly representing an ovarian mass versus enlarged lymph node. Blood cultures positive for gram positive cocci. Patient to be started on IV antibiotics vancomycin and repeat cultures being drawn. Venous Doppler completed of left lower extremity secondary to tenderness noted upon assessment, Doppler results negative for DVT however revealing hypoechoic area with hyperechoic center and vascular hilum seen in the left groin measuring 2.5 x 4.5 x 1.0 cm. Transvaginal ultrasound ordered and Infectious disease and PERFORATOR LOADER consulted. Cultures positive for Strep agalactiae (group B). Vancomycin discontinued patient placed on Rocephin 2 g every 24 hours. Repeat chest x-ray confirming multifocal pneumonia. Pelvic/transvaginal ultrasound showing no pelvic mass and no free fluid within the pelvic. PERFORATOR LOADER seen and evaluated patient, ordered CA 125 and recommending patient to follow-up outpatient in 6 weeks to evaluate for enlarging/resolution of left ovary enlargement/lymphadenopathy. If CA-125 is elevated patient will need gynecological oncology referral. Physical examination: 03/23/21: Patient reports feeling slightly better today, but remains on 5 L O2 via nasal cannula with SpO2 of 91%. Patient reports body aches and chills significantly improved. Patient states she continues to feel weak and have a coarse nonproductive cough and dyspnea with exertion. Patient reports short of breath just getting up to chair. She states left leg/knee pain slightly improved. She denies having any other complaints at this time including headache, lightheadedness, dizziness, chest pain, palpitations, abdominal pain, nausea, vomiting, or experiencing any numbness/tingling/weakness in her extremities. Blood culture obtained 03/21/21 positive for group B strep and patient was placed on Rocephin. Repeat cultures showing no growth after 48 hours and no growth after 24 hours. Vital signs reviewed and stable. General: Nontoxic, no distress and appears stated age. Morbidly obese. Derm: Skin warm and dry, normal coloration for ethnicity. Head: Atraumatic, normocephalic and symmetric. Eyes: EOMs intact, no lid lag, and anicteric sclera Mouth: no lip lesions, mucus membranes moist Cardiovascular: regular rate and rhythm with normal S1S2, Murmur present, positive posterior tibial pulses bilaterally, and cap refill < 2 seconds. Lungs: Respirations even, regular, and unlabored on 5L O2 via NC. Lungs CTA bilaterally, no rhonchi, no rales, no wheezing, and no accessory muscle usage. Abdominal: Obese abdomen soft, nontender to palpation, no guarding, no appreciable organomegaly Ext: ROM intact. No gross muscle atrophy, bilateral lower extremity nonpitting edema, patient complains of pain to posterior left thigh and bend of knee with increased pain upon movement. Neuro: Speech clear, face symmetrical and CN II-XII grossly intact with no noted focal neuro deficits Psych: Alert and oriented to person, place, time, and situation. Appropriate and pleasant affect. Assessment and Plan of Care: Group B Streptococcus bacteremia -Leukocytosis with WBC count of 26.3 -Blood Cultures 03/21/21 positive for Strep agalactiae (group B). Vancomycin discontinued patient placed on Rocephin 2 g every 24 hours. Repeat cultures showing no growth after 48 hours and no growth after 24 hours. -Infectious disease following Community Acquired Multifocal Pneumonia -Covid, influenza, and RSV negative. -Oxygenation to be administered and titrated as needed to maintain SPO2 equal to or greater than 92%. Patient currently on 5 L with SpO2 91% -Chest x-ray positive for multifocal pneumonia, will repeat tomorrow morning -Telemetry monitoring. -Duonebs as needed for SOB and/or wheezing. -Incentive Spirometry. -Antibiotics: Rocephin Abnormal imaging results with findings of left groin lymphadenopathy versus ovarian mass -CT abdomen and pelvis negative for acute intra-abdominal process however did show patchy airspace disease concerning for multifocal pneumonia with trace bilateral pleural effusions, mild fat stranding in the left inguinal area with mild prominence of left inguinal lymph nodes, and soft tissue density left adnexal region measuring 4.5 x 4 cm of unknown clinical significance possibly representing an ovarian mass versus enlarged lymph node. -Venous Doppler completed of left lower extremity secondary to tenderness noted upon assessment, Doppler results negative for DVT, however revealing hypoechoic area with hyperechoic center and vascular hilum seen in the left groin measuring 2.5 x 4.5 x 1.0 cm. -Transvaginal ultrasound ordered showing no significant abnormalities ruling out free fluid or pelvic mass. -PERFORATOR LOADER evaluated patient, ordered CA 125 and recommending patient to follow-up outpatient in 6 weeks to evaluate for enlarging/resolution of left ovary enlargement/lymphadenopathy. If CA-125 is elevated patient will need gynecological oncology referral. -CA-125 normal findings. -CA199 was elevated at 179, possibly secondary to inflammatory/infectious process patient currently being treated for. [employer] recommending patient to have repeat imaging of the left adnexa in 6 weeks. Hypertension -Monitor vital signs and continue daily medication regimen with amlodipine, losartan, and metoprolol. Hyperlipidemia -Initially statin was held until rhabdomyolysis was ruled out. Statin may be resumed at this time in the form of simvastatin 20 mg nightly. CODE STATUS: Full code DVT prophylaxis: Heparin Discussed with: Patient and RN Anticipated discharge date: Clinical course to determine Anticipated discharge place: Home A total of 45 minutes was spent on the care of this complex patient more than 50% of the time was spent in counseling and care coordination. Objective - Vital Signs Vital signs: Vital Signs Temp 98.0 F 03/23/21 07:00 Pulse 72 03/23/21 07:00 Resp 17 03/23/21 07:00 BP 158/51 03/23/21 07:00 Pulse Ox 91 L 03/23/21 07:00 Intake & Output 03/22/21 03/23/21 03/23/21 18:59 06:59 18:59 Other: Voiding Method Toilet Toilet Toilet # Voids 3 - Labs CBC & Chem 7: 03/22/21 04:08 03/22/21 04:08 Labs: Abnormal Lab Results - Last 24 Hours (Table) 03/21/21 Range/Units 19:31 CA 19-9 Antigen 179.5 H (0.0-34.9) U/mL Microbiology - Last 24 Hours (Table) 03/21/21 00:00 Blood Culture Gram Stain - Final Blood Blood Culture - Final Strep agalactiae - (group b) 03/21/21 00:15 Blood Culture - Preliminary Blood No Growth after 48 hours 03/21/21 14:11 Blood Culture - Preliminary Blood No Growth after 24 hours <Corine Mckeon - Last Filed: 03/23/21 14:18> Subjective Patient seen and examined independently. Patient was also seen by Gil Brady NP and case was discussed. I am in agreement with subjective, physical exam, assessment and plan as written above and amended below. Denies any chest discomfort, breathing slightly better than yesterday, still feeling weak, able to move her leg better than yesterday. General: non toxic, no distress, appears at stated age Derm: erythema sponts on left inner knee with plaquing and scale, warm, dry Head: atraumatic, normocephalic, symmetric Eyes: EOMI, no lid lag, anicteric sclera Mouth: no lip lesion, mucus membranes moist Cardiovascular: S1S2 reg, no murmur, positive posterior tibial pulse bilateral, Lungs: CTA bilateral, no rhonchi, no rales , no accessory muscle use Abdominal: soft, nontender to palpation, no guarding, no appreciable organomegaly Ext: no gross muscle atrophy, no edema, no contractures Neuro: CN II-XI grossly intact, no focal neuro deficits Psych: Alert, oriented, appropriate affect Objective - Vital Signs Vital signs: Vital Signs Temp 98.0 F 03/23/21 07:00 Pulse 72 03/23/21 07:00 Resp 17 03/23/21 07:00 BP 158/51 03/23/21 07:00 Pulse Ox 91 L 03/23/21 07:00 Intake & Output 03/22/21 03/23/21 03/23/21 18:59 06:59 18:59 Other: Voiding Method Toilet Toilet Toilet # Voids 3 - Labs CBC & Chem 7: 03/22/21 04:08 03/22/21 04:08 Labs: Abnormal Lab Results - Last 24 Hours (Table) 03/21/21 Range/Units 19:31 CA 19-9 Antigen 179.5 H (0.0-34.9) U/mL Microbiology - Last 24 Hours (Table) 03/21/21 00:00 Blood Culture Gram Stain - Final Blood Blood Culture - Final Strep agalactiae - (group b) 03/21/21 00:15 Blood Culture - Preliminary Blood No Growth after 48 hours 03/21/21 14:11 Blood Culture - Preliminary Blood No Growth after 24 hours
[2021-03-23 11:58] LABS: Ferritin 113.3 ng/mL (10.0-291.0)
[2021-03-23] MEDS: ACETAMINOPHEN TAB 325 MG TAB PO PRN (20:12)
[2021-03-23] MEDS: diphenhydrAMINE 25 MG CAP PO SCH (20:15)
[2021-03-23] MEDS: MONTELUKAST 10 MG TAB PO SCH (20:15)
[2021-03-23] MEDS: METOPROLOL TARTRATE 50 MG TAB PO SCH (20:15)
[2021-03-23] MEDS: ATORVASTATIN 10 MG TAB PO SCH (20:15)
[2021-03-24] MEDS: SODIUM CHLORIDE 0.9% 1,000 ML IV SCH ×2 (00:21→11:04)
[2021-03-24] MEDS: HEPARIN SODIUM,PORCINE/PF 5,000 UNIT/0.5 ML SYRINGE SQ SCH ×3 (00:22→16:25)
--- NOTE | 2021-03-24 06:44 | XR ---
EXAMINATION TYPE: XR chest 1V portable DATE OF EXAM: 03/24/2021 CLINICAL HISTORY: Difficulty breathing and pneumonia progress study. TECHNIQUE: Single AP portable upright view of the chest is obtained. COMPARISON: Chest x-ray from 2 days earlier and older studies FINDINGS: Persistent bilateral multifocal opacities with relative sparing left upper lung. Background mild cardiomegaly and chronic parenchymal changes along with multilevel spurring in the th oracic spine. IMPRESSION: Persistent bilateral multifocal opacities greater in the right lung on background chronic changes and cardiomegaly. No significant change from most recent x-ray.
[2021-03-24] MEDS: ALBUTEROL HFA INHALER INHALATION SCH ×4 (08:26→21:01)
[2021-03-24] MEDS: TIOTROPIUM 2.5 MCG INHALER INHALATION PRN (08:27)
[2021-03-24] MEDS: LOSARTAN 50 MG TAB PO SCH (08:45)
[2021-03-24] MEDS: hydroCHLOROthiazide 25 MG TAB PO SCH (08:49)
[2021-03-24] MEDS: PANTOPRAZOLE 40 MG TABLET PO SCH (08:49)
[2021-03-24] MEDS: SERTRALINE 100 MG TAB PO SCH (08:49)
[2021-03-24] MEDS: amLODIPine 10 MG TAB PO SCH (08:51)
[2021-03-24] MEDS: LORATADINE 10 MG TAB PO SCH (08:51)
[2021-03-24] MEDS: buPROPion XL 150 MG TAB.ER.24H PO SCH (08:52)
[2021-03-24] MEDS: ASPIRIN 325 MG TAB PO SCH (08:52)
[2021-03-24] MEDS: HYDROCORTISONE 1% OINT 28.35 GM TUBE TOPICAL SCH ×3 (08:58→21:40)
[2021-03-24 09:20] LABS: HCT 35.7 % (37.2-46.3); HGB 11.3 g/dL (12.0-15.0); MCH 27.6 pg (27.0-32.0); MCHC 31.7 g/dL (32.0-37.0); MCV 87.3 fL (80.0-97.0); Mean Platelet Volume 11.4 fL (9.5-12.2); Platelet Count 298 X 10*3/uL (140-440); RBC 4.09 X 10*6/uL (4.10-5.20); RDW 13.5 % (11.5-14.5); WBC 11.52 X 10*3/uL (4.50-10.00)
[2021-03-24 09:56] LABS: African American GFR (CKD) 104.6 (60.0-200.0); Anion Gap 8.3 mmol/L (4.00-12.00); BUN/Creat Ratio 18.57 Ratio (12.00-20.00); Calcium 8.9 mg/dL (8.7-10.3); Carbon Dioxide 29.7 mmol/L (21.6-31.8); Magnesium 1.8 mg/dL (1.5-2.4); Non-African American GFR(CKD) 90.3 (60.0-200.0); Potassium 3.2 mmol/L (3.5-5.5)
[2021-03-24] MEDS ORDERED: IPRATROPIUM-ALBUTEROL 3 ML NEB INHALATION PRN (11:14)
--- NOTE | 2021-03-24 11:16 | P.PN ---
Subjective Progress Note Date: 03/24/21 Hospital course: Patient is a 65-year-old female with a past medical history of hypertension, hyperlipidemia, GERD, and chronic bilateral lower extremity edema. She presented to the hospital on 03/20/21 with a chief complaint of generalized body aches, chills, and fever. Patient states these symptoms came on suddenly upon awakening that morning and progressively worsened throughout the day accompanied by significant fatigue and weakness so she came to the ER for further evaluation. In the emergency department patient was seen and fully evaluated. Labs completed revealing an elevated d-dimer of 0.94, LDH of 727, CRP of 8.0, WBC count of 26.3, prerenal azotemia with BUN of 20. Urinalysis was negative for infection. Covid 19 PCR x2 negative, influenza A and B negative, RSV negative. Chest x-ray negative for acute cardiopulmonary process. EKG showing normal sinus rhythm at 75 bpm with no noted T-wave or ST abnormalities. CT abdomen and pelvis negative for acute intra-abdominal process however did show patchy airspace disease concerning for multifocal pneumonia with trace bilateral pleural effusions, mild fat stranding in the left inguinal area with mild prominence of left inguinal lymph nodes, and soft tissue density left adnexal region measuring 4.5 x 4 cm of unknown clinical significance possibly representing an ovarian mass versus enlarged lymph node. Blood cultures positive for gram positive cocci. Patient to be started on IV antibiotics vancomycin and repeat cultures being drawn. Venous Doppler completed of left lower extremity secondary to tenderness noted upon assessment, Doppler results negative for DVT however revealing hypoechoic area with hyperechoic center and vascular hilum seen in the left groin measuring 2.5 x 4.5 x 1.0 cm. Transvaginal ultrasound ordered and Infectious disease and FIELD CROP FARMWORKER consulted. Cultures positive for Strep agalactiae (group B). Vancomycin discontinued patient placed on Rocephin 2 g every 24 hours. Repeat chest x-ray confirming multifocal pneumonia. Pelvic/transvaginal ultrasound showing no pelvic mass and no free fluid within the pelvic. FIELD CROP FARMWORKER seen and evaluated patient, ordered CA 125 and recommending patient to follow-up outpatient in 6 weeks to evaluate for enlarging/resolution of left ovary enlargement/lymphadenopathy. If CA-125 is elevated patient will need gynecological oncology referral. Physical examination: 03/24/21: Patient remains on 5 L O2 via nasal cannula with SpO2 of 91%. She reports that her shortness of breath is improving but she is still unable to ambulate even to get up to chair or bedside commode without feeling as though she cannot catch her breath. Left leg/knee pain nearly resolved, patient able to bend and move without any difficulties. Previously seen redness and swelling to left medial thigh also nearly resolved. Patient denies having any chest pain or palpitations, abdominal pain, nausea, vomiting, or experiencing any numbness/tingling/weakness in her extremities. He needs to have a coarse congestive cough and overall reports feeling very weak. Orders placed for PT/OT consult. We will continue treatment for CAP with Rocephin as well as scheduled Ventolin inhaler and PRN nebulizer treatments. Vital signs reviewed and stable. General: Nontoxic, no distress and appears stated age. Morbidly obese. Derm: Skin warm and dry, normal coloration for ethnicity. Head: Atraumatic, normocephalic and symmetric. Eyes: EOMs intact, no lid lag, and anicteric sclera Mouth: no lip lesions, mucus membranes moist Cardiovascular: regular rate and rhythm with normal S1S2, Murmur present, positive posterior tibial pulses bilaterally, and cap refill < 2 seconds. Lungs: Respirations even, regular, and unlabored on 5L O2 via NC. Lungs diminished at posterior bases, no rhonchi, rales, or wheezes noted at time of assessment. Abdominal: Obese abdomen soft, nontender to palpation, no guarding, no apprecia ble organomegaly Ext: ROM intact. No gross muscle atrophy, bilateral lower extremity nonpitting edema, patient complains of pain to posterior left thigh and bend of knee with increased pain upon movement. Neuro: Speech clear, face symmetrical and CN II-XII grossly intact with no noted focal neuro deficits Psych: Alert and oriented to person, place, time, and situation. Appropriate and pleasant affect. Assessment and Plan of Care: Group B Streptococcus bacteremia -Leukocytosis with WBC count of 26.3, improving WBC count 11.52 this morning. -Blood Cultures 03/21/21 positive for Strep agalactiae (group B). Vancomycin discontinued patient placed on Rocephin 2 g every 24 hours. Repeat cultures showing no growth after 48 hours and no growth after 48 and 72 hours. -Infectious disease following Community Acquired Multifocal Pneumonia -Covid, influenza, and RSV negative. -Oxygenation to be administered and titrated as needed to maintain SPO2 equal to or greater than 92%. Patient currently on 5 L with SpO2 91% -Chest x-ray positive for multifocal pneumonia, will repeat tomorrow morning -Telemetry monitoring. -Duonebs as needed for SOB and/or wheezing. -Incentive Spirometry. -Antibiotics: Rocephin Abnormal imaging results with findings of left groin lymphadenopathy versus ovarian mass -CT abdomen and pelvis negative for acute intra-abdominal process however did show patchy airspace disease concerning for multifocal pneumonia with trace bilateral pleural effusions, mild fat stranding in the left inguinal area with mild prominence of left inguinal lymph nodes, and soft tissue density left adnexal region measuring 4.5 x 4 cm of unknown clinical significance possibly representing an ovarian mass versus enlarged lymph node. -Venous Doppler completed of left lower extremity secondary to tenderness noted upon assessment, Doppler results negative for DVT, however revealing hypoechoic area with hyperechoic center and vascular hilum seen in the left groin measuring 2.5 x 4.5 x 1.0 cm. -Transvaginal ultrasound ordered showing no significant abnormalities ruling out free fluid or pelvic mass. -FIELD CROP FARMWORKER evaluated patient, ordered CA 125 and recommending patient to follow-up outpatient in 6 weeks to evaluate for enlarging/resolution of left ovary enlargement/lymphadenopathy. If CA-125 is elevated patient will need gynecological oncology referral. -CA-125 normal findings. -CA199 was elevated at 179, possibly secondary to inflammatory/infectious process patient currently being treated for. AVIATION MAINTENANCE INSTRUCTOR recommending patient to have repeat imaging of the left adnexa in 6 weeks. Hypertension -Monitor vital signs and continue daily medication regimen with amlodipine, losartan, and metoprolol. Hyperlipidemia -Initially statin was held until rhabdomyolysis was ruled out. Statin may be resumed at this time in the form of simvastatin 20 mg nightly. CODE STATUS: Full code DVT prophylaxis: Heparin Discussed with: Patient and RN Anticipated discharge date: Clinical course to determine Anticipated discharge place: Home A total of 45 minutes was spent on the care of this complex patient more than 50% of the time was spent in counseling and care coordination. Objective - Vital Signs Vital signs: Vital Signs Temp 98.3 F 03/24/21 07:27 Pulse 73 03/24/21 07:27 Resp 18 03/24/21 07:27 BP 159/83 03/24/21 07:27 Pulse Ox 98 03/24/21 07:27 Intake & Output 03/23/21 03/24/21 03/24/21 18:59 06:59 18:59 Intake Total 1080 Balance 1080 Intake: Oral 1080 Other: Voiding Method Toilet Toilet Toilet # Voids 4 2 - Labs CBC & Chem 7: 03/24/21 05:15 03/24/21 05:15 Labs: Microbiology - Last 24 Hours (Table) 03/21/21 00:15 Blood Culture - Preliminary Blood No Growth after 72 hours 03/21/21 14:11 Blood Culture - Preliminary Blood No Growth after 48 hours 03/21/21 00:00 Blood Culture Gram Stain - Final Blood Blood Culture - Final Strep agalactiae - (group b)
[2021-03-24] MEDS: predniSONE 20 MG TAB PO SCH (11:23)
--- NOTE | 2021-03-24 14:34 | CDI ---
Documentation Clarification Form Date: 03/24/2021 02:16:51 PM From: Shruthi Farfan RN CCDS Admit Date: 03/21/2021 09:55:00 AM Patient Name: Rochelle Plummer Visit Number: [id number] Discharge Date: ATTENTION: The Clinical Documentation Specialists (CDI) and [facility] Coding Staff appreciate your assistance in clarifying documentation. Please respond to the clarification below the line at the bottom and electronically sign. The CDI & [facility] Coding staff will review the response and follow-up if needed. Please note: Queries are made part of the Legal Health Record. If you have any questions, please contact the author of this message via ITS. Dr. Naomi Bolton There is documentation of bacteremia in the Medicine progress note, 03/22, 03/23 and 03/24. Bacteremia is considered a lab finding. Additional clarification regarding bacteremia is requested. Patient history/risk factors: 65-year-old female presents to the ED with chills, diffuse body aches and feeling very weak and sick. Medical history: COVID 03 November 2020, HLD & HTN. 03/21 H&P. Clinical Indicators: WBC: 03/20 26.3 Left Shift: 03/20 23.5 Lactic acid: 03/20 2.0 Blood Culture: 03/21 Streptococcus agalactiae. Consult ID: 03/22 Patient with Streptococcus agalactiae bacteremia, concern for possible left medial thigh cellulitis. Treatment: 03/20 0.9NS 1 L bolus x1. Antibiotics: 03/21 Vancomycin 2,000mg IVPB x 1; 03/21 Rocephin 1,000mg IVP x 1; 03/21 current Ceftriaxone Sodium 2gm IVPB Q24H. Please provide additional clarification regarding the etiology/cause and/or clinical significance of the bacteremia: [ ] Bacteremia is related to sepsis [ ] Bacteremia is due to infectious process, please specify: [ ] Bacteremia is not clinically significant [ ] Other, please specify [ ] Unable to determine (Template Last Revised: September 2020) MTDD
--- NOTE | 2021-03-24 14:50 | CDI ---
Documentation Clarification Form Date: 03/24/2021 02:36:19 PM From: Shruthi Farfan RN CCDS Admit Date: 03/21/2021 09:55:00 AM Patient Name: Rochelle Plummer Visit Number: [id number] Discharge Date: ATTENTION: The Clinical Documentation Specialists (CDI) and [facility] Coding Staff appreciate your assistance in clarifying documentation. Please respond to the clarification below the line at the bottom and electronically sign. The CDI & [facility] Coding staff will review the response and follow-up if needed. Please note: Queries are made part of the Legal Health Record. If you have any questions, please contact the author of this message via ITS. Dr. Naomi Bolton Your patient is receiving the followinL oxygen nasal cannula. Please clarify what condition/diagnosis is being treated. History/Risk Factors: 65-year-old female presents to the ED with chills, diffuse body aches and feeling very weak and sick. Medical history: COVID 03 November 2020, HLD & HTN. 03/21 H&P. Clinical indicators: VSS: 03/23 B/P 158/51; HR 72; Temp 98.0 F Oral; RR 17; SpO2 91% 5L oxygen nasal cannula Lung assessment 03/23 Medicine consult: CTA bilateral. CXR: 03/22 Multifocal pneumonia similar to prior. Treatment: 03/23 to current 5L oxygen nasal cannula. 03/21 Spiriva Respimat 2.5 Mcg 2 puff inhalation RT Daily PRN shortness of breath. What diagnosis are you treating with 5L oxygen? [ ] Acute Respiratory Failure [ ] No additional diagnosis [ ] Other, please specify [ ] Unable to determine (Template Last Reviewed: August 2020) MTDD
--- NOTE | 2021-03-24 18:50 | PN ---
PROGRESS NOTE DATE OF SERVICE: 03/24/2021 REASON FOR FOLLOWUP: Streptococcal bacteremia, left lower extremity cellulitis. INTERVAL HISTORY: The patient is afebrile. She is breathing slightly comfortably. The denies having any chest pain. Occasional cough which is dry. No nausea, vomiting. No abdominal pain. Overall pain and redness of the left leg have decreased. PHYSICAL EXAMINATION: Blood pressure 157/80 with a pulse of 78, temperature 97.4. She is 97% on room air. GENERAL DESCRIPTION: General description is an elderly female lying in bed in no distress. RESPIRATORY SYSTEM: Unlabored breathing. Decreased intensity of breath sounds. No wheeze. HEART: S1, S2. Regular rate and rhythm. ABDOMEN: Soft. No tenderness. Left let swelling and redness have decreased. LABS: Hemoglobin is 11.3, white count 11.52, BUN of 13, creatinine 0.7. DIAGNOSTIC IMPRESSION AND PLAN: Patient with left lower extremity cellulitis with streptococcal bacteremia in this patient who has shown overall improvement. Repeat blood culture has been negative. Finish therapy with oral Keflex and close outpatient followup. MMODL / IJN: [id number] /
[2021-03-24] MEDS: MONTELUKAST 10 MG TAB PO SCH (21:39)
[2021-03-24] MEDS: ATORVASTATIN 10 MG TAB PO SCH (21:39)
[2021-03-24] MEDS: METOPROLOL TARTRATE 50 MG TAB PO SCH (21:40)
[2021-03-24] MEDS: diphenhydrAMINE 25 MG CAP PO SCH (21:40)
[2021-03-24] MEDS ORDERED: TEMAZEPAM 7.5 MG CAP PO PRN (21:41)
[2021-03-25] MEDS: CEPHALEXIN 500 MG CAP PO SCH ×4 (00:12→20:02)
[2021-03-25] MEDS: HEPARIN SODIUM,PORCINE/PF 5,000 UNIT/0.5 ML SYRINGE SQ SCH ×3 (00:12→19:18)
[2021-03-25] MEDS: buPROPion XL 150 MG TAB.ER.24H PO SCH (08:39)
[2021-03-25] MEDS: ASPIRIN 325 MG TAB PO SCH (08:39)
[2021-03-25] MEDS: amLODIPine 10 MG TAB PO SCH (08:39)
[2021-03-25] MEDS: PANTOPRAZOLE 40 MG TABLET PO SCH (08:40)
[2021-03-25] MEDS: hydroCHLOROthiazide 25 MG TAB PO SCH (08:40)
[2021-03-25] MEDS: LORATADINE 10 MG TAB PO SCH (08:41)
[2021-03-25] MEDS: LOSARTAN 50 MG TAB PO SCH (08:41)
[2021-03-25] MEDS: SERTRALINE 100 MG TAB PO SCH (08:42)
[2021-03-25] MEDS: predniSONE 20 MG TAB PO SCH (08:49)
[2021-03-25] MEDS: HYDROCORTISONE 1% OINT 28.35 GM TUBE TOPICAL SCH ×2 (08:52→21:28)
[2021-03-25] MEDS: ALBUTEROL HFA INHALER INHALATION SCH ×4 (09:24→20:08)
[2021-03-25] MEDS: TIOTROPIUM 2.5 MCG INHALER INHALATION PRN (09:24)
[2021-03-25 09:45] LABS: HCT 37.2 % (37.2-46.3); HGB 11.9 g/dL (12.0-15.0); MCH 28.1 pg (27.0-32.0); MCV 87.9 fL (80.0-97.0); Mean Platelet Volume 11.5 fL (9.5-12.2); Platelet Count 310 X 10*3/uL (140-440); RBC 4.23 X 10*6/uL (4.10-5.20); RDW 13.3 % (11.5-14.5); WBC 13.31 X 10*3/uL (4.50-10.00)
[2021-03-25 10:38] LABS: Anion Gap 9.8 mmol/L (4.00-12.00); BUN/Creat Ratio 21.25 Ratio (12.00-20.00); Calcium 9.4 mg/dL (8.7-10.3); Carbon Dioxide 29.2 mmol/L (21.6-31.8); Magnesium 2.1 mg/dL (1.5-2.4); Non-African American GFR(CKD) 76.8 (60.0-200.0); Potassium 3.2 mmol/L (3.5-5.5)
[2021-03-25] MEDS ORDERED: Potassium Replacement Protocol 1 EACH MISC MISCELLANE PRN (10:41)
[2021-03-25] MEDS: POTASSIUM CHLORIDE ER 20 MEQ TAB.ER PO SCH ×2 (11:48→13:40)
--- NOTE | 2021-03-25 13:08 | P.PN ---
Subjective Progress Note Date: 03/25/21 Hospital course: Patient is a 65-year-old female with a past medical history of hypertension, hyperlipidemia, GERD, and chronic bilateral lower extremity edema. She presented to the hospital on 03/20/21 with a chief complaint of generalized body aches, chills, and fever. Patient states these symptoms came on suddenly upon awakening that morning and progressively worsened throughout the day accompanied by significant fatigue and weakness so she came to the ER for further evaluation. In the emergency department patient was seen and fully evaluated. Labs completed revealing an elevated d-dimer of 0.94, LDH of 727, CRP of 8.0, WBC count of 26.3, prerenal azotemia with BUN of 20. Urinalysis was negative for infection. Covid 19 PCR x2 negative, influenza A and B negative, RSV negative. Chest x-ray negative for acute cardiopulmonary process. EKG showing normal sinus rhythm at 75 bpm with no noted T-wave or ST abnormalities. CT abdomen and pelvis negative for acute intra-abdominal process however did show patchy airspace disease concerning for multifocal pneumonia with trace bilateral pleural effusions, mild fat stranding in the left inguinal area with mild prominence of left inguinal lymph nodes, and soft tissue density left adnexal region measuring 4.5 x 4 cm of unknown clinical significance possibly representing an ovarian mass versus enlarged lymph node. Blood cultures positive for gram positive cocci. Patient to be started on IV antibiotics vancomycin and repeat cultures being drawn. Venous Doppler completed of left lower extremity secondary to tenderness noted upon assessment, Doppler results negative for DVT however revealing hypoechoic area with hyperechoic center and vascular hilum seen in the left groin measuring 2.5 x 4.5 x 1.0 cm. Transvagina l ultrasound ordered and Infectious disease and INDUSTRIAL SPRAYPAINTER consulted. Cultures positive for Strep agalactiae (group B). Vancomycin discontinued patient placed on Rocephin 2 g every 24 hours. Repeat chest x-ray confirming multifocal pneumonia. Pelvic/transvaginal ultrasound showing no pelvic mass and no free fluid within the pelvic. INDUSTRIAL SPRAYPAINTER seen and evaluated patient, ordered CA 125 and recommending patient to follow-up outpatient in 6 weeks to evaluate for enlarging/resolution of left ovary enlargement/lymphadenopathy. If CA-125 is elevated patient will need gynecological oncology referral. Subjective: Patient feels okay today, still requiring 4 L of oxygen. Gets short of breath upon exertion. No chest pain no abdominal pain. Remains afebrile. Objective - Vital Signs Vital signs: Vital Signs Temp 97.7 F 03/25/21 07:16 Pulse 52 L 03/25/21 07:19 Resp 20 03/25/21 07:19 BP 141/63 03/25/21 07:16 Pulse Ox 98 03/25/21 09:25 Intake & Output 03/24/21 03/25/21 03/25/21 18:59 06:59 18:59 Other: Voiding Method Toilet Toilet # Voids 3 1 1 - Exam General: Nontoxic, no distress and appears stated age. Morbidly obese. On oxy gen Derm: Skin warm and dry Head: Atraumatic, normocephalic and symmetric. Eyes: EOMs intact, no lid lag, and anicteric sclera Mouth: no lip lesions, mucus membranes moist Cardiovascular: regular rate and rhythm with normal S1S2, Murmur present Lungs: Decreased breath sounds, no wheezing Abdominal: Obese abdomen soft, nontender to palpation, no guarding, no appreciable organomegaly Ext: ROM intact. No gross muscle atrophy, 1+ bilateral lower extremity nonpitting edema. Neuro: Speech clear, face symmetrical and CN II-XII grossly intact with no noted focal neuro deficits Psych: Alert and oriented to person, place, time, and situation. Appropriate and pleasant affect. - Labs CBC & Chem 7: 03/25/21 05:21 03/25/21 05:21 Labs: Abnormal Lab Results - Last 24 Hours (Table) 03/25/21 03/25/21 Range/Units 05:21 05:21 WBC 13.31 H (4.50-10.00) X 10*3/uL Hgb 11.9 L (12.0-15.0) g/dL Absolute Nucleated RBC 0.03 H (0.00-0.00) X 10*3/uL NRBC/100 WBC Diff 0.2 H (0.0-0.0) /100 WBCS Potassium 3.2 L (3.5-5.5) mmol/L BUN/Creatinine Ratio 21.25 H (12.00-20.00) Ratio Glucose 115 H (70-110) mg/dL Microbiology - Last 24 Hours (Table) 03/21/21 00:15 Blood Culture - Preliminary Blood No Growth after 96 hours 03/21/21 14:11 Blood Culture - Preliminary Blood No Growth after 72 hours Assessment and Plan Plan: Group B Streptococcus bacteremia -Leukocytosis with WBC count of 26.3, improving WBC count 11.52 yesterday, currently up to 13.3 -Blood Cultures 03/21/21 positive for Strep agalactiae (group B). Vancomycin discontinued patient placed on Rocephin 2 g every 24 hours. Repeat cultures showing no growth -Infectious disease following Community Acquired Multifocal Pneumonia -Covid, influenza, and RSV negative. -Oxygenation to be administered and titrated as needed to maintain SPO2 equal to or greater than 92%. Patient currently on 4 L with SpO2 91% -Chest x-ray positive for multifocal pneumonia, will repeat tomorrow morning -Telemetry monitoring. -Duonebs as needed for SOB and/or wheezing. -Incentive Spirometry. -Antibiotics: Rocephin Abnormal imaging results with findings of left groin lymphadenopathy versus ovarian mass -CT abdomen and pelvis negative for acute intra-abdominal process however did show patchy airspace disease concerning for multifocal pneumonia with trace bilateral pleural effusions, mild fat stranding in the left inguinal area with mild prominence of left inguinal lymph nodes, and soft tissue density left adnexal region measuring 4.5 x 4 cm of unknown clinical significance possibly re presenting an ovarian mass versus enlarged lymph node. -Venous Doppler completed of left lower extremity secondary to tenderness noted upon assessment, Doppler results negative for DVT, however revealing hypoechoic area with hyperechoic center and vascular hilum seen in the left groin measuring 2.5 x 4.5 x 1.0 cm. -Transvaginal ultrasound ordered showing no significant abnormalities ruling out free fluid or pelvic mass. -INDUSTRIAL SPRAYPAINTER evaluated patient, ordered CA 125 and recommending patient to follow-up outpatient in 6 weeks to evaluate for enlarging/resolution of left ovary enlargement/lymphadenopathy. If CA-125 is elevated patient will need gynecological oncology referral. -CA-125 normal findings. -CA199 was elevated at 179, possibly secondary to inflammatory/infectious process patient currently being treated for. LIVE IN CAREGIVER recommending patient to have repeat imaging of the left adnexa in 6 weeks. Hypertension Continue on amlodipine, losartan, and metoprolol. Hyperlipidemia -Initially statin was held until rhabdomyolysis was ruled out. Resume simvastatin 20 mg nightly. Hypokalemia: Potassium 3.2, replace as indicated. Place on replacement protocol Acute hypoxic respiratory failure present upon admission likely associated with pneumonia but also could be associated with hypovolemia Continue treatment underlying condition Obtain a 2-D echo Start IV Lasix 40 mg twice a day etc. obtain CT chest to rule out pulmonary embolism Disposition: Pending clinical progression Home in 2-3 days
--- NOTE | 2021-03-25 13:13 | PN ---
PROGRESS NOTE DATE OF SERVICE: 03/25/2021 REASON FOR FOLLOWUP: Streptococcal bacteremia, left leg cellulitis. INTERVAL HISTORY: The patient is afebrile. The patient is breathing comfortably. Denies having any chest pain, shortness of breath, cough, no abdominal pain or any pain to the left leg. PHYSICAL EXAMINATION: Blood pressure 141/63 with a pulse of 52, temperature 97.7. She is 98% on 4 L nasal cannula. General description is an elderly female up in the bed in no distress. Respiratory system: Unlabored breathing, decreased breath sounds in the base. No wheeze. Heart S1, S2. Regular rate and rhythm. Abdomen soft. No tenderness. Left leg swelling and redness has resolved. LABS: Hemoglobin 11.1, white count 13.31. DIAGNOSTIC IMPRESSION AND PLAN: Patient with streptococcal bacteremia source likely left leg cellulitis. This patient showed overall improvement. White count slightly elevated. She will benefit to finish therapy with oral Keflex with close outpatient followup. Continue supportive care. MMODL / IJN: [id number] /
--- NOTE | 2021-03-25 15:41 | CT ---
CT CHEST FOR PULMONARY EMBOLISM. EXAMINATION TYPE: CT angio chest DATE OF EXAM: 03/25/2021 INDICATION: Shortness of breath, hypoxia CT DLP: 964.1 mGycm, Automated exposure control for dose reduction was used. CONTRAST: Patient injected with 100 mL of Isovue 370. COMPARISON: None TECHNIQUE: CT of the chest is performed on a spiral scan at 2 mm thick sections. Study is performed with intravenous contrast timed for evaluation for pulmonary embolism. This will limit additional po rtions of the evaluation. 3-D MIP images reconstructed by the technologist are reviewed on the compu ter in the coronal and sagittal planes. FINDINGS: No persistent filling defects are evident to suggest an acute pulmonary embolism. No mediastinal or hilar adenopathy enlarged by CT criteria is evident. The ascending aorta diameter at the level of the main pulmonary artery is 3.2 cm. The main pulmonary artery diameter at the bifur cation is 3.2 cm. Minimal bilateral pleural effusions are present. There are diffuse groundglass opacities greater on t he right. Findings are nonspecific. Pulmonary edema and atypical pneumonia could be considered. Limited CT section through the upper abdomen are unremarkable. IMPRESSIONS: 1. Diffuse groundglass opacities present bilaterally. Clinical consideration for atypical pneumonia i s recommended. 2. No acute pulmonary embolism.
[2021-03-25] MEDS: FUROSEMIDE 10 MG/ML 4 ML VIAL IV SCH (16:06)
--- NOTE | 2021-03-25 17:06 | ECHOF ---
Referral Reason:hypoxia MEASUREMENTS -------- HEIGHT: 170.2 cm WEIGHT: 136.1 kg BP: RVIDd: 3.8 cm (< 3.3) IVSd: 1.3 cm (0.6 - 1.1) LVIDd: 3.8 cm (3.9 - 5.3) LVPWd: 1.6 cm (0.6 - 1.1) IVSs: 1.6 cm LVIDs: 3.1 cm LVPWs: 1.7 cm LA Diam: 4.0 cm (2.7 - 3.8) Ao Diam: 2.6 cm (2.0 - 3.7) AV Cusp: 1.3 cm (1.5 - 2.6) LA Diam: 4.5 cm (2.7 - 3.8) MV EXCURSION: 15.228 mm (> 18.000) MV EF SLOPE: 51 mm/s (70 - 150) EPSS: 0.4 cm AV maxP.23 mmHg AV meanP.58 mmHg RAP: 10.00 mmHg RVSP: 59.05 mmHg FINDINGS -------- Sinus rhythm. This was a technically adequate study. Morbid Obesity The left ventricular size is normal. There is moderate concentric left ventricular hypertrophy. O verall left ventricular systolic function is low-normal with, an EF between 50 - 55 %. The right ventricle is mild to moderately enlarged. The left atrium is mildly dilated. The right atrial size is normal. There is mild aortic stenosis present. Peak/mean gradient across the Aortic Valve is 29.23mmHg / 14 .58mmHg. Mild mitral regurgitation is present. No regurgitation noted There is moderate pulmonary hypertension. The right ventricular systolic p ressure, as measured by Doppler, is 59.05mmHg. There is no pulmonic regurgitation present. Echo free space represents a pericardial fat pad. CONCLUSIONS -------- 1. The left ventricular size is normal. 2. There is moderate concentric left ventricular hypertrophy. 3. Overall left ventricular systolic function is low-normal with, an EF between 50 - 55 %. 4. The right ventricle is mild to moderately enlarged. 5. The left atrium is mildly dilated. 6. The right atrial size is normal. 7. There is mild aortic stenosis present. 8. Peak/mean gradient across the Aortic Valve is 29.23mmHg / 14.58mmHg. 9. Mild mitral regurgitation is present. 10. No regurgitation noted 11. There is moderate pulmonary hypertension. 12. The right ventricular systolic pressure, as measured by Doppler, is 59.05mmHg. 13. There is no pulmonic regurgitation present. 14. Echo free space represents a pericardial fat pad. CUSTODIAL FOREMAN: Loren Putnam RDCS
[2021-03-25] MEDS: diphenhydrAMINE 25 MG CAP PO SCH (20:01)
[2021-03-25] MEDS: MONTELUKAST 10 MG TAB PO SCH (20:02)
[2021-03-25] MEDS: ATORVASTATIN 10 MG TAB PO SCH (20:02)
[2021-03-25] MEDS: METOPROLOL TARTRATE 50 MG TAB PO SCH (20:02)
[2021-03-26] MEDS: HYDROCORTISONE 1% OINT 28.35 GM TUBE TOPICAL SCH ×3 (00:49→22:24)
[2021-03-26] MEDS: HEPARIN SODIUM,PORCINE/PF 5,000 UNIT/0.5 ML SYRINGE SQ SCH ×3 (00:49→15:26)
[2021-03-26] MEDS: CEPHALEXIN 500 MG CAP PO SCH ×5 (00:49→21:18)
[2021-03-26] MEDS: FUROSEMIDE 10 MG/ML 4 ML VIAL IV SCH ×3 (07:23→21:18)
--- NOTE | 2021-03-26 09:04 | CDI ---
Documentation Clarification Form Date: 03/26/2021 08:54:18 AM From: Shruthi Farfan RN CCDS Admit Date: 03/21/2021 09:55:00 AM Patient Name: Rochelle Plummer Visit Number: [id number] Discharge Date: ATTENTION: The Clinical Documentation Specialists (CDI) and [facility] Coding Staff appreciate your assistance in clarifying documentation. Please respond to the clarification below the line at the bottom and electronically sign. The CDI & [facility] Coding staff will review the response and follow-up if needed. Please note: Queries are made part of the Legal Health Record. If you have any questions, please contact the author of this message via ITS. Dr. Yoandy Rodriguez There is documentation of bacteremia in the Medicine progress note, 03/22, 03/23 and 03/24. Bacteremia is considered a lab finding. Additional clarification regarding bacteremia is requested. Patient history/risk factors: 65-year-old female presents to the ED with chills, diffuse body aches and feeling very weak and sick. Medical history: COVID 03 November 2020, HLD & HTN. 03/21 H&P. Clinical Indicators: WBC: 03/20 26.3 Left Shift: 03/20 23.5 Lactic acid: 03/20 2.0 Blood Culture: 03/21 Streptococcus agalactiae. Consult ID: 03/22 Patient with Streptococcus agalactiae bacteremia, concern for possible left medial thigh cellulitis. Treatment: 03/20 0.9NS 1 L bolus x1. Antibiotics: 03/21 Azithromycin 500 mg IVBP x 1; 03/21 Vancomycin 2,000mg IVPB x 1; 03/21 Rocephin 1,000mg IVP x 1; 03/21 03/24 Ceftriaxone Sodium 2gm IVPB Q24H; 03/24 to current Keflex 500mg PO QID. Please provide additional clarification regarding the etiology/cause and/or clinical significance of the bacteremia: [ ] Bacteremia is related to sepsis [ x] Bacteremia is due to infectious process, please specify: _Pneumonia___ [ ] Bacteremia is not clinically significant [ ] Other, please specify [ ] Unable to determine (Template Last Revised: September 2020) MTDD
[2021-03-26] MEDS: ALBUTEROL HFA INHALER INHALATION SCH ×4 (09:07→19:00)
[2021-03-26] MEDS: TIOTROPIUM 2.5 MCG INHALER INHALATION PRN (09:08)
[2021-03-26] MEDS: LORATADINE 10 MG TAB PO SCH (09:48)
[2021-03-26] MEDS: ASPIRIN 325 MG TAB PO SCH (09:48)
[2021-03-26] MEDS: hydroCHLOROthiazide 25 MG TAB PO SCH (09:49)
[2021-03-26] MEDS: buPROPion XL 150 MG TAB.ER.24H PO SCH (09:49)
[2021-03-26] MEDS: PANTOPRAZOLE 40 MG TABLET PO SCH (09:49)
[2021-03-26] MEDS: predniSONE 20 MG TAB PO SCH (09:49)
[2021-03-26] MEDS: SERTRALINE 100 MG TAB PO SCH (09:50)
[2021-03-26 09:58] LABS: African American GFR (CKD) 77.2 (60.0-200.0); Albumin/Globulin Ratio 1.6 (1.60-3.17); Anion Gap 9.4 mmol/L (4.00-12.00); BUN/Creat Ratio 25.56 Ratio (12.00-20.00); Calcium 9.5 mg/dL (8.7-10.3); Carbon Dioxide 31.6 mmol/L (21.6-31.8); Globulin 2.5 g/dL (1.6-3.3); Non-African American GFR(CKD) 66.6 (60.0-200.0); Potassium 3.6 mmol/L (3.5-5.5); Total Bilirubin 0.3 mg/dL (0.3-1.2); Total Protein 6.5 g/dL (6.2-8.2)
[2021-03-26 11:58] LABS: Basophils % (A) 0.6 %; Eosinophils % (A) 1.8 %; HCT 40.3 % (37.2-46.3); HGB 12.4 g/dL (12.0-15.0); Lymphocytes # (A) 3.45 X 10*3/uL (0.90-5.00); MCH 27.3 pg (27.0-32.0); MCHC 30.8 g/dL (32.0-37.0); MCV 88.6 fL (80.0-97.0); Mean Platelet Volume 11.1 fL (9.5-12.2); Monocytes % (A) 9.7 %; Neutrophils # (A) 9.94 X 10*3/uL (1.80-7.70); Neutrophils % (A) 63.2 %; Platelet Count 401 X 10*3/uL (140-440); RBC 4.55 X 10*6/uL (4.10-5.20); RDW 13.5 % (11.5-14.5); WBC 15.71 X 10*3/uL (4.50-10.00)
[2021-03-26 11:59] LABS: Eosinophils # (A) 0.28 X 10*3/uL (0.04-0.35); Monocytes # (A) 1.52 X 10*3/uL (0.20-1.00)
--- NOTE | 2021-03-26 13:05 | P.PN ---
Subjective Progress Note Date: 03/26/21 Hospital course: Patient is a 65-year-old female with a past medical history of hypertension, hyperlipidemia, GERD, and chronic bilateral lower extremity edema. She presented to the hospital on 03/20/21 with a chief complaint of generalized body aches, chills, and fever. Patient states these symptoms came on suddenly upon awakening that morning and progressively worsened throughout the day accompanied by significant fatigue and weakness so she came to the ER for further evaluation. In the emergency department patient was seen and fully evaluated. Labs completed revealing an elevated d-dimer of 0.94, LDH of 727, CRP of 8.0, WBC count of 26.3, prerenal azotemia with BUN of 20. Urinalysis was negative for infection. Covid 19 PCR x2 negative, influenza A and B negative, RSV negative. Chest x-ray negative for acute cardiopulmonary process. EKG showing normal sinus rhythm at 75 bpm with no noted T-wave or ST abnormalities. CT abdomen and pelvis negative for acute intra-abdominal process however did show patchy airspace disease concerning for multifocal pneumonia with trace bilateral pleural effusions, mild fat stranding in the left inguinal area with mild prominence of left inguinal lymph nodes, and soft tissue density left adnexal region measuring 4.5 x 4 cm of unknown clinical significance possibly representing an ovarian mass versus enlarged lymph node. Blood cultures positive for gram positive cocci. Patient to be started on IV antibiotics vancomycin and repeat cultures being drawn. Venous Doppler completed of left lower extremity secondary to tenderness noted upon assessment, Doppler results negative for DVT however revealing hypoechoic area with hyperechoic center and vascular hilum seen in the left groin measuring 2.5 x 4.5 x 1.0 cm. Transvagina l ultrasound ordered and Infectious disease and FLY FISHING GUIDE consulted. Cultures positive for Strep agalactiae (group B). Vancomycin discontinued patient placed on Rocephin 2 g every 24 hours. Repeat chest x-ray confirming multifocal pneumonia. Pelvic/transvaginal ultrasound showing no pelvic mass and no free fluid within the pelvic. FLY FISHING GUIDE seen and evaluated patient, ordered CA 125 and recommending patient to follow-up outpatient in 6 weeks to evaluate for enlarging/resolution of left ovary enlargement/lymphadenopathy. If CA-125 is elevated patient will need gynecological oncology referral. Subjective: Feels better today, shortness of breath is much better. She is down to 2 L of oxygen from 4 L yesterday. Continues to be on diuretics. Objective - Vital Signs Vital signs: Vital Signs Temp 97.9 F 03/26/21 11:57 Pulse 50 L 03/26/21 12:33 Resp 18 03/26/21 12:33 BP 132/81 03/26/21 11:57 Pulse Ox 95 03/26/21 11:57 Intake & Output 03/25/21 03/26/21 03/26/21 18:59 06:59 18:59 Other: Voiding Method Toilet # Voids 4 1 # Bowel Movements 1 - Exam General: Nontoxic, no distress and appears stated age. Morbidly obese. On oxygen Derm: Skin warm and dry Head: Atraumatic, normocephalic and symmetric. Eyes: EOMs intact, no lid lag, and anicteric sclera Mouth: no lip lesions, mucus membranes moist Cardiovascular: regular rate and rhythm with normal S1S2, Murmur present Lungs: Decreased breath sounds, no wheezing Abdominal: Obese abdomen soft, nontender to palpation, no guarding, no appreciable organomegaly Ext: ROM intact. No gross muscle atrophy, trace + bilateral lower extremity nonpitting edema. Neuro: Speech clear, face symmetrical and CN II-XII grossly intact with no noted focal neuro deficits Psych: Alert and oriented to person, place, time, and situation. Appropriate and pleasant affect. - Labs CBC & Chem 7: 03/26/21 04:37 03/26/21 04:37 Labs: Abnormal Lab Results - Last 24 Hours (Table) 03/26/21 03/26/21 Range/Units 04:37 04:37 WBC 15.71 H (4.50-10.00) X 10*3/uL MCHC 30.8 L (32.0-37.0) g/dL Absolute Nucleated RBC 0.02 H (0.00-0.00) X 10*3/uL Immature Gran # 0.42 H (0.00-0.04) X 10*3/uL Neutrophils # 9.94 H (1.80-7.70) X 10*3/uL Monocytes # 1.52 H (0.20-1.00) X 10*3/uL NRBC/100 WBC Diff 0.1 H (0.0-0.0) /100 WBCS BUN/Creatinine Ratio 25.56 H (12.00-20.00) Ratio Microbiology - Last 24 Hours (Table) 03/21/21 00:15 Blood Culture - Preliminary Blood No Growth after 120 hours 03/21/21 14:11 Blood Culture - Preliminary Blood No Growth after 96 hours Assessment and Plan Plan: Group B Streptococcus bacteremia -Leukocytosis with WBC count of 26.3, improving WBC count 11.52 yesterday, curr ently up to 15.7 -Blood Cultures 03/21/21 positive for Strep agalactiae (group B). Vancomycin discontinued patient placed on Rocephin 2 g every 24 hours. Repeat cultures showing no growth -Infectious disease following Bacteremia without sepsis secondary to underlying infection with strep and pneum onia Community Acquired Multifocal Pneumonia -Covid, influenza, and RSV negative. -Oxygenation to be administered and titrated as needed to maintain SPO2 equal to or greater than 92%. Patient currently on 2 L -Chest x-ray positive for multifocal pneumonia, CTA chest negative for pulmonary embolism. -Telemetry monitoring. -Duonebs as needed for SOB and/or wheezing. -Incentive Spirometry. -Antibiotics: Rocephin Abnormal imaging results with findings of left groin lymphadenopathy versus ovarian mass -CT abdomen and pelvis negative for acute intra-abdominal process however did show patchy airspace disease concerning for multifocal pneumonia with trace bilateral pleural effusions, mild fat stranding in the left inguinal area with mild prominence of left inguinal lymph nodes, and soft tissue density left adn exal region measuring 4.5 x 4 cm of unknown clinical significance possibly representing an ovarian mass versus enlarged lymph node. -Venous Doppler completed of left lower extremity secondary to tenderness noted upon assessment, Doppler results negative for DVT, however revealing hypoechoic area with hyperechoic center and vascular hilum seen in the left groin measuring 2.5 x 4.5 x 1.0 cm. -Transvaginal ultrasound ordered showing no significant abnormalities ruling out free fluid or pelvic mass. -FLY FISHING GUIDE evaluated patient, ordered CA 125 and recommending patient to follow-up outpatient in 6 weeks to evaluate for enlarging/resolution of left ovary enlargement/lymphadenopathy. If CA-125 is elevated patient will need gynecological oncology referral. -CA-125 normal findings. -CA199 was elevated at 179, possibly secondary to inflammatory/infectious process patient currently being treated for. BOOKKEEPING TEACHER recommending patient to have repeat imaging of the left adnexa in 6 weeks. Hypertension Continue on amlodipine, losartan, and metoprolol. Hyperlipidemia -Initially statin was held until rhabdomyolysis was ruled out. Continue simvastatin 20 mg nightly. Hypokalemia: replace as indicated. Place on replacement protocol Acute hypoxic respiratory failure present upon admission likely associated with pneumonia and with hypervolemia Continue treatment underlying condition Obtained a 2-D echo EF 55% with moderate pulmonary hypertension Continue IV Lasix 40 mg twice a day etc. Clinically improving, down to 2 L of oxygen Disposition: Home likely tomorrow, continue to titrate oxygen down.
[2021-03-26] MEDS: amLODIPine 10 MG TAB PO SCH (15:26)
[2021-03-26] MEDS: LOSARTAN 50 MG TAB PO SCH (15:26)
--- NOTE | 2021-03-26 16:54 | PN ---
PROGRESS NOTE DATE OF SERVICE: 03/26/2021 REASON FOR FOLLOWUP: Streptococcal bacteremia and left leg cellulitis. INTERVAL HISTORY: Patient is afebrile. The patient is breathing comfortably. Denies having any chest pain, shortness of breath, cough, no abdominal pain. Left leg swelling and redness has improved. PHYSICAL EXAMINATION: Blood pressure 132/81, pulse of 96, temperature 97.9. She is 95% on 2 L nasal cannula. General description is an elderly female up in the bed in no distress. Respiratory system: Unlabored breathing, decreased breath sounds at the base. No wheeze. Heart S1, S2. Regular rate and rhythm. Abdomen: Soft, no tenderness. LAB: Hemoglobin 12.4, white count 15.7, BUN of 23, creatinine 0.9. DIAGNOSTIC IMPRESSION AND PLAN: 1. Patient with Streptococcus agalactiae bacteremia, source likely left leg cellulitis. Repeat culture negative on oral Keflex to continue. 2. Elevated white count more likely steroid effect and will monitor closely. MMODL / IJN: [id number] /
[2021-03-26] MEDS: diphenhydrAMINE 25 MG CAP PO SCH (21:17)
[2021-03-26] MEDS: METOPROLOL TARTRATE 50 MG TAB PO SCH (21:18)
[2021-03-26] MEDS: MONTELUKAST 10 MG TAB PO SCH (21:19)
[2021-03-26] MEDS: ATORVASTATIN 10 MG TAB PO SCH (21:23)
[2021-03-27] MEDS: HEPARIN SODIUM,PORCINE/PF 5,000 UNIT/0.5 ML SYRINGE SQ SCH ×2 (01:48→09:10)
[2021-03-27] MEDS: ALBUTEROL HFA INHALER INHALATION SCH ×3 (08:06→16:18)
[2021-03-27] MEDS: TIOTROPIUM 2.5 MCG INHALER INHALATION PRN (08:07)
[2021-03-27] MEDS: LORATADINE 10 MG TAB PO SCH (09:09)
[2021-03-27] MEDS: LOSARTAN 50 MG TAB PO SCH (09:09)
[2021-03-27] MEDS: ASPIRIN 325 MG TAB PO SCH (09:09)
[2021-03-27] MEDS: SERTRALINE 100 MG TAB PO SCH (09:09)
[2021-03-27] MEDS: amLODIPine 10 MG TAB PO SCH (09:09)
[2021-03-27] MEDS: CEPHALEXIN 500 MG CAP PO SCH ×2 (09:09→14:06)
[2021-03-27] MEDS: PANTOPRAZOLE 40 MG TABLET PO SCH (09:09)
[2021-03-27] MEDS: hydroCHLOROthiazide 25 MG TAB PO SCH (09:09)
[2021-03-27] MEDS: predniSONE 20 MG TAB PO SCH (09:10)
[2021-03-27] MEDS: buPROPion XL 150 MG TAB.ER.24H PO SCH (09:10)
[2021-03-27] MEDS: FUROSEMIDE 10 MG/ML 4 ML VIAL IV SCH (09:10)
[2021-03-27 09:13] LABS: Basophils # (A) 0.12 X 10*3/uL (0.00-0.10); Basophils % (A) 0.7 %; Eosinophils # (A) 0.41 X 10*3/uL (0.04-0.35); Eosinophils % (A) 2.3 %; HCT 40.8 % (37.2-46.3); Lymphocytes # (A) 4.05 X 10*3/uL (0.90-5.00); Lymphocytes % (A) 22.5 %; MCH 28.4 pg (27.0-32.0); MCHC 31.9 g/dL (32.0-37.0); MCV 89.1 fL (80.0-97.0); Mean Platelet Volume 10.8 fL (9.5-12.2); Monocytes # (A) 1.88 X 10*3/uL (0.20-1.00); Monocytes % (A) 10.4 %; Neutrophils # (A) 11.01 X 10*3/uL (1.80-7.70); Neutrophils % (A) 61.2 %; Platelet Count 463 X 10*3/uL (140-440); RBC 4.58 X 10*6/uL (4.10-5.20); RDW 13.5 % (11.5-14.5)
[2021-03-27] MEDS: HYDROCORTISONE 1% OINT 28.35 GM TUBE TOPICAL SCH (10:49)
[2021-03-27 12:27] VITALS: BP 132/58; PULSE 55; RESP 16; TEMP 98.3
[2021-03-27] MEDS ORDERED: FLUCONAZOLE 150 MG TAB PO STA (13:26)
--- NOTE | 2021-03-27 13:56 | PN ---
PROGRESS NOTE DATE OF SERVICE: 03/27/2021 REASON FOR FOLLOWUP: Streptococcal bacteremia and left leg cellulitis. INTERVAL HISTORY: The patient is afebrile. The patient is breathing better. She is currently breathing comfortably on room air. Denies having any chest pain or cough. No abdominal pain or diarrhea. Left leg redness has resolved. PHYSICAL EXAMINATION: Blood pressure 132/68 with a pulse of 55, temperature 98.3. She is 94% on room air. GENERAL DESCRIPTION: General description is an elderly female up in the chair in no distress. RESPIRATORY SYSTEM: Unlabored breathing. Decreased breath sounds at the bases. No wheeze. HEART: S1, S2. Regular rate and rhythm. ABDOMEN: Soft. No tenderness. Left leg redness has resolved. LABS: Hemoglobin is 17, white count 18,000. DIAGNOSTIC IMPRESSION AND PLAN: 1. Patient with streptococcal bacteremia; source likely left leg cellulitis. Overall improvement. Repeat blood culture has been negative. Patient to continue with Keflex for a week. 2. Patient is complaining of some vaginal yeast infection from the antibiotic. Will give a dose of Diflucan x1. MMODL / IJN: [id number] /
[2021-03-27 14:35] VITALS: BMI 47.0
--- NOTE | 2021-03-27 15:21 | P.DS ---
Providers Date of admission: 03/21/21 09:55 Attending physician: Stone Klein MD Consults: 03/21/21 13:58 Consult Physician Routine Consulting Provider: Cb Day Consult Reason/Comments: blood cultures positive for gram positive Cocci Do you want consulting provider notified?: Yes 03/21/21 15:41 Consult Physician Routine Consulting Provider: Abner Jay Consult Reason/Comments: r/o ovarian mass Do you want consulting provider notified?: Yes Primary care physician: [facility] Hospital Course: Patient is a 65-year-old female with a past medical history of hypertension, hyperlipidemia, GERD, and chronic bilateral lower extremity edema. She presented to the hospital on 03/20/21 with a chief complaint of generalized body aches, chills, and fever. Patient states these symptoms came on suddenly upon awakening that morning and progressively worsened throughout the day accompanied by significant fatigue and weakness so she came to the ER for further ev aluation. In the emergency department patient was seen and fully evaluated. Labs completed revealing an elevated d-dimer of 0.94, LDH of 727, CRP of 8.0, WBC count of 26.3, prerenal azotemia with BUN of 20. Urinalysis was negative for infection. Covid 19 PCR x2 negative, influenza A and B negative, RSV negative. Chest x-ray negative for acute cardiopulmonary process. EKG showing normal sinus rhythm at 75 bpm with no noted T-wave or ST abnormalities. CT abdomen and pelvis negative for acute intra-abdominal process however did show patchy airspace disease concerning for multifocal pneumonia with trace bilateral pleural effusions, mild fat stranding in the left inguinal area with mild prominence of left inguinal lymph nodes, and soft tissue density left adnexal region measuring 4.5 x 4 cm of unknown clinical significance possibly representing an ovarian mass versus enlarged lymph node. Patient was diagnosed with acute cellulitis and was found to have cultures positive for Strep agalactiae (group B) age and was evaluated by infectious disease team in the hospital and she was transitioned to oral Keflex on discharge. Patient is to continue for 1 week time. Patient was also found to have on computed tomography scan and an abnormal left groin lymphadenopathy versus ovarian mass. Patient was evaluated by OP Sukhdeep in the hospital. And recommendation was for outpatient follow-up imaging. She is to have a repeat CT in 6 weeks' time Patient's respiratory status improved during the hospital stay patient did have a CTA chest performed which was negative for pulmonary embolism. It did show consistent with pulmonary hypertension. Patient is to continue with her diuretic home therapy. Patient was on room air on day of discharge with O2 saturation greater than 90% Discharge diagnosis #1 group B streptococcus bacteremia secondary to lower extremity cellulitis, #2 left groin lymphadenopathy, #3 acute hypoxic respiratory failure, #4 pulmonary hypertension Patient Condition at Discharge: Stable Plan - Discharge Summary Discharge Rx Participant: No New Discharge Prescriptions: New Cephalexin [Keflex] 500 mg PO QID 7 Days #28 cap Continue Aspirin 325 mg PO DAILY Simvastatin [Zocor] 20 mg PO HS Metoprolol Tartrate [Lopressor] 50 mg PO HS Omeprazole 20 mg PO DAILY Furosemide [Lasix] 40 mg PO DAILY Sertraline [Zoloft] 100 mg PO DAILY buPROPion XL [Wellbutrin XL] 150 mg PO DAILY Montelukast Sodium [Singulair] 10 mg PO HS Potassium Chloride ER [K-Dur 10] 20 meq PO DAILY hydroCHLOROthiazide 25 mg PO DAILY amLODIPine [Norvasc] 10 mg PO DAILY Losartan Potassium [Cozaar] 100 mg PO DAILY Discontinued Naproxen Sodium [Aleve] 220 mg PO BID PRN PRN Reason: Pain Discharge Medication List Aspirin 325 mg PO DAILY 11/14/17 [History] Furosemide [Lasix] 40 mg PO DAILY 11/14/17 [History] Metoprolol Tartrate [Lopressor] 50 mg PO HS 11/14/17 [History] Omeprazole 20 mg PO DAILY 11/14/17 [History] Sertraline [Zoloft] 100 mg PO DAILY 11/14/17 [History] Simvastatin [Zocor] 20 mg PO HS 11/14/17 [History] Losartan Potassium [Cozaar] 100 mg PO DAILY 03/20/21 [History] Montelukast Sodium [Singulair] 10 mg PO HS 03/20/21 [History] Potassium Chloride ER [K-Dur 10] 20 meq PO DAILY 03/20/21 [History] amLODIPine [Norvasc] 10 mg PO DAILY 03/20/21 [History] buPROPion XL [Wellbutrin XL] 150 mg PO DAILY 03/20/21 [History] hydroCHLOROthiazide 25 mg PO DAILY 03/20/21 [History] Cephalexin [Keflex] 500 mg PO QID 7 Days #28 cap 03/27/21 [Rx] Follow up Appointment(s)/Referral(s): Jere Love MD [Primary Care Provider] - 1-2 days Discharge Disposition: HOME SELF-CARE
[2021-03-27 21:42] LABS: Albumin 4.1 g/dL (3.80-4.90); Albumin/Globulin Ratio 1.64 (1.60-3.17); Anion Gap 17.6 mmol/L (4.00-12.00); Calcium 9.5 mg/dL (8.7-10.3); Carbon Dioxide 28.4 mmol/L (21.6-31.8); Globulin 2.5 g/dL (1.6-3.3); Non-African American GFR(CKD) 58.7 (60.0-200.0); Potassium 3.4 mmol/L (3.5-5.5); Total Bilirubin 0.2 mg/dL (0.3-1.2); Total Protein 6.6 g/dL (6.2-8.2)
== END 2021-03-27 16:13 | disposition home or self-care (01) | DRG 602 ==
LOC: EC 19:00 → 6NMEDSUR 03-21 01:27 → OBSVTOIN 03-21 09:55 → 4SSUR 03-22 07:51
PROVIDERS: ADMIT Internal Medicine; ATTEND Internal Medicine
DX: L03.116 Cellulitis of left lower limb (principal); J96.01 Acute respiratory failure with hypoxia; J18.9 Pneumonia, unspecified organism; R78.81 Bacteremia; I27.20 Pulmonary hypertension, unspecified; I10 Essential (primary) hypertension; Z20.822 Contact with and (suspected) exposure to COVID-19; F32.9 Major depressive disorder, single episode, unspecified; E78.5 Hyperlipidemia, unspecified; E78.00 Pure hypercholesterolemia, unspecified; B37.3 Candidiasis of vulva and vagina; T36.95XA Adverse effect of unspecified systemic antibiotic, initial encounter; B95.1 Streptococcus, group B, as the cause of diseases classified elsewhere; R79.82 Elevated C-reactive protein (CRP); F41.9 Anxiety disorder, unspecified; Z79.82 Long term (current) use of aspirin; Z79.899 Other long term (current) drug therapy; Z90.710 Acquired absence of both cervix and uterus; Z90.79 Acquired absence of other genital organ(s); Z90.721 Acquired absence of ovaries, unilateral; Z90.49 Acquired absence of other specified parts of digestive tract; Z86.16 Personal history of COVID-19
CPT/HCPCS: 36415; 71045; 71275; 74177; 76830; 76856; 80048; 80053; 81001; 82550; 82728; 83605; 83615; 83735; 84100; 85025; 85027; 85379; 85610; 85730; 86140; 86301; 86304; 87040; 87077; 87186; 87502; 87634; 87635; 93005; 93306; 94640; 94760; 99285

== ENCOUNTER → 2021-04-23 | Outpatient (CLI) | payer MEDICARE, OTHER ==
[2021-04-23 16:36] LABS: ALT 29 U/L (4-34); AST 33 U/L (14-36); African American GFR (CKD) >90 (>60 ml/min/1.73 sqM); Albumin 4.1 g/dL (3.5-5.0); Alkaline Phosphatase 83 U/L (38-126); Anion Gap 7 mmol/L; Blood Urea Nitrogen 19 mg/dL (7-17); Calcium 9.7 mg/dL (8.4-10.2); Carbon Dioxide 27 mmol/L (22-30); Chloride 106 mmol/L (98-107); Glucose 106 mg/dL (74-99); Non-African American GFR(CKD) 80 (>60 ml/min/1.73 sqM); Potassium 4.2 mmol/L (3.5-5.1); Sodium 140 mmol/L (137-145); Total Bilirubin 0.5 mg/dL (0.2-1.3); Total Protein 7.4 g/dL (6.3-8.2)
--- NOTE | 2021-04-24 09:05 | CT ---
EXAMINATION TYPE: CT abdomen pelvis w con DATE OF EXAM: 04/23/2021 COMPARISON: 03/21/2021 HISTORY: 65-year-old female PELVIC SWELLING TECHNIQUE: Contiguous axial scanning of the abdomen and pelvis following administration of 100 ml Iso sherlyn 300 IV contrast. Delayed images through the kidneys and coronal/sagittal reconstructions perform ed. CT DLP: 3791.1 mGycm Automated exposure control for dose reduction was used. FINDINGS: Heart normal size without pericardial effusion. Mild septal lines in the lower lungs without pleural effusion. Liver enlarged at 19.6 cm with slightly low attenuation suggesting fatty infiltration. No focal liver lesion or biliary ductal dilatation. Portal venous system is patent. Cholecystectomy clips. Adrenal glands, kidneys, spleen, pancreas within normal limits. No dilated small bowel, free fluid, or free air. Scattered small mesenteric lymph nodes are present. Mesenteric or retroperitoneal lymphadenopathy by size criteria. Appendix not visualized. No secondary findings of acute appendicitis in the right lower quadrant. Mil d stool within the right side of the colon. Lower descending and proximal to mid sigmoid diverticulos is. No pericolonic inflammatory change. Bladder partially distended. Pelvic phleboliths. Uterus surgically absent. Left ovary measures 3.6 cm , unchanged from prior. Probable small right ovary on axial image 64. No abnormal fluid collection in the pelvis or pelvic lymphadenopathy. Bones: Mild degenerative change of the hips. Moderately advanced spondylotic change throughout the vi sualized spine. IMPRESSION: 1. MILD HEPATOMEGALY (19.6 CM) WITH MODERATE HEPATIC STEATOSIS. 2. LOWER DESCENDING AND PROXIMAL TO MID SIGMOID DIVERTICULOSIS WITHOUT ACUTE DIVERTICULITIS. 3. ASYMMETRICALLY ENLARGED LEFT OVARY AT 3.6 CM, UNCHANGED FROM THE RECENT PRIOR. RECOMMEND 3 MONTH F OLLOW-UP PELVIC ULTRASOUND TO REASSESS AND FURTHER CHARACTERIZE. IF ASYMMETRIC ENLARGEMENT PERSISTS, CONSIDER FEMALE PELVIC MRI FOR MORE DETAILED CHARACTERIZATION.
== END | disposition home or self-care (01) ==
LOC: RADECHMAIN 15:02
PROVIDERS: ATTEND Family Medicine
DX: N83.8 Other noninflammatory disorders of ovary, fallopian tube and broad ligament (principal); K57.30 Diverticulosis of large intestine without perforation or abscess without bleeding; K76.0 Fatty (change of) liver, not elsewhere classified
CPT/HCPCS: 80053; 74177; 36415; Q9967

== ENCOUNTER → 2021-11-20 | Outpatient (CLI) | payer MEDICARE, OTHER ==
--- NOTE | 2021-11-21 11:20 | US ---
EXAMINATION TYPE: US pelvis complete transvag DATE OF EXAM: 11/20/2021 COMPARISON: 03/21/2021, CT scan 04/23/2021 CLINICAL HISTORY: N83.202 UNSPECIFIED OVARIAN CYST, LEFT SIDE. enlarged left ovary on CT in Apr 2021, not symptoms, hysterectomy and oophorectomy TECHNIQUE: TA/TV. Transabdominal sonographic images of the pelvis were acquired. Transvaginal sono graphic images Date of LMP: hysterectomy EXAM MEASUREMENTS: Uterus: Surgically absent Endometrial Stripe: Surgically absent Right Ovary: Surgically absent Left Ovary: not seen 1. Uterus: Surgically absent 2. Endometrium: Surgically absent 3. Right Ovary: Surgically absent 4. Left Ovary: not seen 5. Bilateral Adnexa: wnl 6. Posterior cul-de-sac: wnl IMPRESSION: 1. Postsurgical change. Exam is nondiagnostic assessment of the left ovary as the left ovary was not seen on today's exam. Correlate with MRI as clinically warranted.
== END | disposition home or self-care (01) ==
LOC: RADUSWWP 16:04
PROVIDERS: ATTEND Family Medicine
DX: N83.202 Unspecified ovarian cyst, left side (principal)
CPT/HCPCS: 76830; 76856

== ENCOUNTER → 2022-06-18 | Outpatient (CLI) | payer MEDICARE, OTHER ==
--- NOTE | 2022-06-21 08:44 | MM ---
Reason for Exam: Screening (asymptomatic). Last mammogram was performed 1 year(s) and 4 month(s) ago. Patient History: Menarche at age 11. First Full-Term at age 18. Right ovary removed at age 34. Hysterectomy at age 34. Postmenopausal. Other cancer. Patient used Hormonal Contraceptives for 7 years. Risk Values: Jody 5 year model risk: 1.2%. NCI Lifetime model risk: 4.2%. Prior Study Comparison: 11/21/2018 Bilateral Screening Mammogram, [facility]. 01/14/2020 Bilateral Screening Mammogram, [facility]. 02/26/2021 Bilateral Screening Mammogram, [facility]. Tissue Density: The breast tissue is almost entirely fat. Findings: Analyzed By CAD. There is no suspicious group of microcalcifications or new suspicious mass in either breast. Overall Assessment: Negative, BI-RAD 1 Management: Screening Mammogram of both breasts in 1 year. A clinical breast exam by your physician is recommended on an annual basis and results should be correlated with mammographic findings. [facility] will attempt to contact patient to return for supplemental views and ultrasound if indicated. Electronically signed and approved by: Aj Cole DO
--- NOTE | 2022-06-21 09:18 | BD ---
EXAMINATION TYPE: Axial Bone Density DATE OF EXAM: 06/18/2022 COMPARISON: 04/10/2020 CLINICAL HISTORY: 66 years year old Female. ICD-10 CODE: M89.9 DISORDER OF BONE Height: 64.7 IN Weight: 291 LBS FRAX RISK QUESTIONS: History of Fracture in Adulthood: ANKLE FX AGE 34 Secondary Osteoporosis: 3. Menopause before 45: PARTIAL HYST AGE 37 5. Chronic liver disease: ENLARGED LIVER PER PT RISK FACTORS HISTORY OF: Active: LIMITED Postmenopausal woman: PARTIAL HYST AGE 37 Take estrogen and/or progesterone medications: NOT NOW How long: TOOK CONTROL FOR 7 YEARS MEDICATIONS: Additional Medications: BLOOD PRESSURE MEDS, CHOLESTEROL MEDS, ACID REFLUX MEDS, ALEVE, EXAM MEASUREMENTS: Bone mineral densitometry was performed using the [place] [employer] System. Bone mineral density as measured about the Lumbar spine is: ----- L1-L4(G/cm2): 1.467 T Score Values are as follows: ----- L1: 1.3 ----- L2: 2.1 ----- L3: 2.7 ----- L4: 3.0 ----- L1-L4: 2.4 Bone mineral density has: Decreased -1.3% since study of: 04/10/2020 Bone mineral density about the R hip (g/cm2): 0.906 Bone mineral density about the L hip (g/cm2): 0.923 T Score values are as follows: -----R Neck: -0.9 -----L Neck: -0.8 -----R Total: 0.3 -----L Total: 0.3 Bone mineral density has: Decreased -10.1% since study of: 04/10/2020 FRAX%s: The graph provided illustrates a 11.3 chance for a major osteoporotic fx and a 0.8 chance for the hips probability for fx in 10 years time. IMPRESSION: Normal (Values between +1 and -1 indicate normal bone mass). Consider repeating this study in 5 year s or sooner if there is some new clinical indication. NOTE: T-SCORE=SD OF THE YOUNG ADULT MEAN.
== END | disposition home or self-care (01) ==
LOC: RADMAMWWP 15:06
PROVIDERS: ATTEND Family Medicine
DX: Z12.31 Encounter for screening mammogram for malignant neoplasm of breast (principal); M89.9 Disorder of bone, unspecified; Z78.0 Asymptomatic menopausal state; Z90.721 Acquired absence of ovaries, unilateral
CPT/HCPCS: 77063; 77067; 77080

== ENCOUNTER → 2022-12-02 | Outpatient (CLI) | payer MEDICARE, OTHER ==
--- NOTE | 2022-12-02 16:12 | US ---
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 No hx of DVT. Patient takes aspirin. SIDE PERFORMED: Bilateral 1) Color flow is present and patency is documented in the following vessels. No DVT or SVT is noted . Common Femoral Vein Deep Femoral Vein Femoral Vein Popliteal Vein Proximal Calf Veins Greater Saph Vein Upper Small Saph Vein 2) There is venous reflux noted at the following venous levels: Right: Right proximal popliteal vein, right small saphenous vein, Left: left deep femoral vein, left mid femoral vein, and left distal femoral vein. IMPRESSION: 1. No evidence for DVT within the bilateral lower extremities imaged from the groin to the upper calv es. 2. Venous reflux noted in the bilateral lower extremities as outlined above.
== END | disposition home or self-care (01) ==
LOC: RADUSWWP 14:51
PROVIDERS: ATTEND Family Medicine
DX: I87.2 Venous insufficiency (chronic) (peripheral) (principal); M79.89 Other specified soft tissue disorders; Z79.82 Long term (current) use of aspirin
CPT/HCPCS: 93970

== ENCOUNTER → 2022-12-21 | Outpatient (CLI) | payer MEDICARE ==
[2022-12-21 20:13] LABS: Chol/HDL Ratio 3.69 Ratio; LDL Cholesterol,Calculated 105.8 mg/dL
[2022-12-21 20:35] LABS: ALT 25 U/L; AST 32 U/L; Albumin 4.4 d/dL; Albumin/Globulin Ratio 1.57 Ratio; Alkaline Phosphatase 103 U/L; Blood Urea Nitrogen 18.4 mg/dL; Calcium 9.8 mg/dL; Carbon Dioxide 24.5 mmol/L; Chloride 104 mmol/L; Globulin 2.8 d/dL; Glucose 91 mg/dL; Potassium 4.4 mmol/L; Sodium 142 mmol/L; Total Bilirubin 0.6 mg/dL; Total Protein 7.2 d/dL
== END | disposition home or self-care (01) ==
LOC: LABWHC1 11:10
PROVIDERS: ATTEND Internal Medicine Interventional Cardiology
DX: E78.2 Mixed hyperlipidemia (principal)
CPT/HCPCS: 36415; 80053; 80061

== ENCOUNTER → 2023-01-31 | Outpatient (CLI) | payer MEDICARE, OTHER ==
[2023-01-31 21:26] LABS: HGB 14.5 d/dL (12.0-15.0); MCHC 31.5 d/dL (32.0-37.0); Mean Platelet Volume 11.9 FL (9.5-12.2); NRBC Per 100 WBC 0 X 10*3/uL (0.00-0.01); Platelet Count 289 X 10*3/uL (140-440); RBC 5.17 X 10*6/uL (4.10-5.20); RDW 13.2 % (11.5-14.5); WBC 9.36 X 10*3/uL (4.50-10.00)
[2023-01-31 21:51] LABS: Blood Urea Nitrogen 19.3 mg/dL (9.0-27.0); Carbon Dioxide 26.1 mmol/L (21.6-31.8); Chloride 106 mmol/L (96-109); Potassium 4.4 mmol/L (3.5-5.5); Sodium 143 mmol/L (135-145)
== END | disposition home or self-care (01) ==
LOC: LABPAT 14:55
PROVIDERS: ATTEND Internal Medicine Interventional Cardiology
DX: Z01.812 Encounter for preprocedural laboratory examination (principal); R94.39 Abnormal result of other cardiovascular function study
CPT/HCPCS: 80051; 82565; 84520; 85027

== ENCOUNTER → 2023-04-21 | Outpatient (CLI) | payer MEDICARE, OTHER ==
[2023-04-21 16:35] LABS: ALT 22 U/L (8-44); AST 18 U/L (13-35); Chol/HDL Ratio 3.21 Ratio; LDL Cholesterol,Calculated 81.6 mg/dL (0.0-131.0)
== END | disposition home or self-care (01) ==
LOC: LABWHC1 11:44
PROVIDERS: ATTEND Internal Medicine Interventional Cardiology
DX: E78.2 Mixed hyperlipidemia (principal)
CPT/HCPCS: 36415; 80061; 84450; 84460

== ENCOUNTER → 2023-08-05 | Outpatient (CLI) | payer MEDICARE, OTHER ==
--- NOTE | 2023-08-09 08:40 | MM ---
Reason for Exam: Screening (asymptomatic). Last mammogram was performed 1 year(s) and 1 month(s) ago. Patient History: Menarche at age 11. First Full-Term at age 18. Right ovary removed at age 34. Hysterectomy at age 34. Postmenopausal. Other cancer. Patient used Hormonal Contraceptives for 7 years. Risk Values: Jody 5 year model risk: 1.2%. NCI Lifetime model risk: 4.0%. Prior Study Comparison: 01/14/2020 Bilateral Screening Mammogram, [facility]. 02/26/2021 Bilateral Screening Mammogram, [facility]. 06/18/2022 Bilateral MG 3D screening mammo w/cad, [facility]. Tissue Density: The breast tissue is almost entirely fat. Findings: Analyzed By CAD. Unchanged focal asymmetry 5:00 right breast. There is no suspicious group of microcalcifications or new suspicious mass in either breast. Overall Assessment: Benign, BI-RAD 2 Management: Screening Mammogram of both breasts in 1 year. . Patient should continue monthly self-breast exams. A clinical breast exam by your physician is recommended on an annual basis. This exam should not preclude additional follow-up of suspicious palpable abnormalities. Note on Jody scores and lifetime risk: 1. A Jody score greater than 3% is considered moderate risk. If this is the case, consider specialist referral to assess eligibility for a risk reducing agent. 2. If overall lifetime risk for the development of breast cancer is 20% or higher, the patient may qualify for future screening with alternating mammogram and breast MRI. Electronically signed and approved by: Stephan Sanchez M.D. Radiologist
== END | disposition home or self-care (01) ==
LOC: RADMAMWWP 13:34
PROVIDERS: ATTEND Family Medicine
DX: Z12.31 Encounter for screening mammogram for malignant neoplasm of breast (principal); Z78.0 Asymptomatic menopausal state
CPT/HCPCS: 77063; 77067

== ENCOUNTER → 2024-02-16 | Outpatient (CLI) | payer MEDICARE ==
[2024-02-16 10:45] LABS: African American GFR (CKD) 78 (>60 ml/min/1.73 sqM); Blood Urea Nitrogen 21 mg/dL (7-17); Non-African American GFR(CKD) 68 (>60 ml/min/1.73 sqM)
--- NOTE | 2024-02-16 12:15 | CT ---
EXAMINATION TYPE: CT abdomen pelvis w con DATE OF EXAM: 02/16/2024 COMPARISON: 04/23/2021 HISTORY: llq PAIN CT DLP: 3308.6 mGycm Automated exposure control for dose reduction was used. TECHNIQUE: Helical acquisition of images was performed from the lung bases through the pelvis. CONTRAST: Performed with Oral Contrast and with IV Contrast, patient injected with 100 mL of Isovue 300. FINDINGS: The lung bases are clear. There is surgical absence of the gallbladder. There is no biliary ductal dilatation. There is no focal mass or organomegaly involving the liver, pancreas, spleen or adrenal glands. There is no solid renal mass or hydronephrosis and there is homogeneous contrast enhancement of the r enal parenchyma. The caliber the abdominal aorta is normal is no retroperitoneal adenopathy or hemorr lottie. The bowel loops are normal in caliber and there is no evidence of dilatation or obstruction. No infla mmatory changes are identified in the bowel wall or mesentery. There is no free intraperitoneal air or fluid. No pelvic mass, free fluid, abscess or adenopathy. There is surgical absence of the uterus. The osseous structures and soft tissues are intact. IMPRESSION: No significant abnormality seen.
== END | disposition home or self-care (01) ==
LOC: RADCTMAIN 10:04
PROVIDERS: ATTEND Family Medicine
DX: R10.32 Left lower quadrant pain (principal); N83.8 Other noninflammatory disorders of ovary, fallopian tube and broad ligament; I10 Essential (primary) hypertension
CPT/HCPCS: 82565; 84520; 74177; 36415; Q9967

== ENCOUNTER → 2024-05-14 | Outpatient (CLI) | payer MEDICARE ==
[2024-05-14 17:07] LABS: ALT 25 U/L (8-44); AST 22 U/L (13-35); Albumin 3.8 g/dL (3.8-4.9); Albumin/Globulin Ratio 1.65 Ratio (1.60-3.17); Alkaline Phosphatase 95 U/L (41-126); Blood Urea Nitrogen 17.4 mg/dL (9.0-27.0); Calcium 9.9 mg/dL (8.7-10.3); Carbon Dioxide 28.6 mmol/L (21.6-31.8); Chloride 105 mmol/L (96-109); Chol/HDL Ratio 2.67 Ratio; Globulin 2.3 g/dL (1.6-3.3); Glucose 102 mg/dL (70-110); Potassium 4.6 mmol/L (3.5-5.5); Sodium 142 mmol/L (135-145); Total Bilirubin 0.4 mg/dL (0.3-1.2); Total Protein 6.1 g/dL (6.2-8.2)
[2024-05-14 17:14] LABS: HGB 13.8 g/dL (12.0-15.0); MCH 26.5 pg (27.0-32.0); MCHC 30.7 g/dL (32.0-37.0); MCV 86.4 FL (80.0-97.0); Mean Platelet Volume 11.2 FL (9.5-12.2); NRBC Per 100 WBC 0 X 10*3/uL (0.00-0.01); Platelet Count 298 X 10*3/uL (140-440); RBC 5.21 X 10*6/uL (4.10-5.20); RDW 15.3 % (11.5-14.5); WBC 8.42 X 10*3/uL (4.50-10.00)
== END | disposition home or self-care (01) ==
LOC: LABWHC1 09:38
PROVIDERS: ATTEND Internal Medicine Interventional Cardiology
CPT/HCPCS: 36415; 80053; 80061; 82306; 85027

== ENCOUNTER → 2024-07-04 | Outpatient (CLI) | payer MEDICARE ==
[2024-07-04 09:11] VITALS: BP 136/58; PULSE 62; RESP 16
--- NOTE | 2024-07-04 15:20 | P.PAINPG ---
PQRS Measure Charge Sheet Comment: HISTORY OF PRESENT ILLNESS: A 68 yr old female as a referral from [facility] presents today w severe and chronic LBP > 1 yr secondary to radiculopathy, spondylosis and facet arthropathy without myelopathy for evaluation. Pt states pain level is provoked at 6 /10 in intensity, constant, localized in the lumbar spine, predominantly axial, dull in character w occasional shooting pain towards the BL knees. Pain is provoked by bending. Pain is alleviated by PT x 6 wks which ended in early Jun 2024, physician guided home exercises 4-5 times weekly since Jun 2024, BioFreeze topical, repositioning and rest . Oswestry axial pain score at 33. Pt may be a candidate for a L2-S1 Posterior Lateral Decompression w Fusion. PMH: OA, GERD, Hyperlipidemia, HTN, MDD PSH: LESIs, Cardiac Catheterization (2022), R Knee Menisectomy, Appendectomy, Cholecystectomy, Hernia Repair, Hysterectomy SH: Former tobacco user, Occ ETOH use, No illicit drug use FH: Mo- No Reported History All: See list Meds: See list incl Eliquis, Plavix REVIEW OF ORGAN SYSTEMS: CONSTITUTIONAL: No fevers or chills. No recent weight loss. NEUROLOGICAL: + numbness and tingling along the distal extremities. No seizure disorders or headaches. MUSCULOSKELETAL: + pain PSYCHIATRIC: Denies current depression or suicidal thoughts. Physical Examinations : Constitutional : Cooperative , not in acute distress . Neurologic : Cranial nerve II to XII intact. No focal neurological deficits. Psychiatric : alert & oriented x 3. Matching mood & appropriate affect. Judgment & insight intact. Musculoskeletal : Cervical Spine Motor strength in the deltoid and biceps: Normal right side. Normal Left side Motor strength biceps and the wrist extensors: Normal right side . Normal left side Motor strength in the triceps muscle: Normal right side. Normal left side Deep tendon reflexes: Normal at the biceps. Normal at Brachioradialis. Normal at triceps Vertebral body tenderness to deep palpa tion over Cervical facet loading test: positive bilaterally Spurling test: positive bilaterally Neck distraction test: positive bilaterally Anjelica sign: positive bilaterally Lumbar spine Motor strength lower extremities ,thigh and legs 5/5 Right side , 5/5 Left side Deep tendon reflexes : Normal Knee Jerk. Normal Ankle Jerk Vertebral body tenderness over L4 Mcleod Test positive BL L4-L5 Lumbar facet Loading Test: positive Right / positive Left Range of motion of the lumbar spine Flexion 30 degrees, extension 10 degrees Straight Leg Raise test: Left/ Right positive at degrees Sana test: positive right / positive left. Severe tenderness over the Sacroiliac joint on the Right / Left sides Gaenslen test: positive bilaterally Seated flexion test: positive bilaterally. Sacral spine : Severe tenderness over the Sacroiliac joint: right side / left side Range of motion: Flexion of the lumbar spine <60 degrees Range of motion: Extension of the lumbar spine <20 degrees Gaenslen's Test positive Sana test: positive right side / left side Thigh Thrust Test Sacral Thrust Test Imaging: MRI non contrast lumbar spine from 05/14/24 reviewed Assessment/ Plan : Lumbar radiculopathy Recommendation of EDGAR L4-L5 #1. Risks, benefits of procedure discussed and patient verbalized understanding. Admits to anti- coagulant use or medical history of diabetes. Protocol for discontinuation/ continuation of medications bessy procedure discussed. All questions answered. I have spent greater than 30 minutes on patient care today. Dr Mae was gabriel ilable by phone for the evaluation of this patient. The time was used to review the medical records including relevant urine studies and Prescription history (MAPs), review of the available imaging, evaluation and examination of the patient, coordination of care with the medical staff and if applicable referring physicians, as well as creation of the medical record PQRS Narrative: Smoking Status Former smoker Home Medications: Ambulatory Orders Furosemide [Lasix] 20 mg PO QAM 11/14/17 Metoprolol Tartrate [Lopressor] 50 mg PO HS 11/14/17 Omeprazole 20 mg PO BID 11/14/17 Sertraline [Zoloft] 100 mg PO QAM 11/14/17 Losartan Potassium [Cozaar] 100 mg PO QAM 03/20/21 Montelukast Sodium [Singulair] 10 mg PO QAM 03/20/21 Potassium Chloride ER [K-Dur 10] 20 meq PO QAM 03/20/21 amLODIPine [Norvasc] 10 mg PO QAM 03/20/21 buPROPion XL [Wellbutrin XL] 150 mg PO QAM 03/20/21 Rivaroxaban [Xarelto] 20 mg PO W/SUPPER 01/31/23 Sucralfate [Carafate] 1 gm PO BID 01/31/23 Aspirin 81 mg PO DAILY tab 02/03/23 Atorvastatin [Lipitor] 40 mg PO DAILY #90 tab 02/03/23 Clopidogrel [Plavix] 75 mg PO DAILY #90 tab 02/03/23 Nitroglycerin Sl Tabs [Nitrostat] 0.4 mg SUBLINGUAL Q5M PRN #25 tab 02/03/23 Controlled Substance Measures - Controlled Substance Measures Is patient prescribed a controlled substance at discharge?: No
== END ==
LOC: PNWHC3 08:43
PROVIDERS: ATTEND Specialist
DX: M51.16 Intervertebral disc disorders with radiculopathy, lumbar region (principal); Z87.891 Personal history of nicotine dependence
CPT/HCPCS: 99211

== ENCOUNTER 2024-10-01 20:14 | Inpatient (IN) | payer MEDICARE ==
[2024-10-01 20:48] LABS: Basophils # (A) 0.1 k/uL (0-0.2); Basophils % (A) 1 %; Eosinophils # (A) 0.2 k/uL (0-0.7); Eosinophils % (A) 2 %; HCT 41.7 % (34.0-46.0); HGB 12.9 gm/dL (11.4-16.0); Lymphocytes # (A) 1.5 k/uL (1.0-4.8); Lymphocytes % (A) 12 %; MCH 26.4 pg (25.0-35.0); MCHC 30.8 g/dL (31.0-37.0); MCV 85.6 fL (80.0-100.0); Mean Platelet Volume 8.7; Monocytes # (A) 0.9 k/uL (0-1.0); Monocytes % (A) 7 %; Neutrophils % (A) 78 %; Platelet Count 285 k/uL (150-450); RBC 4.88 m/uL (3.80-5.40); RDW 14.8 % (11.5-15.5); WBC 12.9 k/uL (3.8-10.6)
[2024-10-01 20:52] LABS: INR 1.2 (<1.2); Partial Thromboplastin Time 27.5 sec (22.0-30.0); Prothrombin Time 12.5 sec (10.0-12.5)
[2024-10-01 20:55] LABS: ALT 21 U/L (4-34); AST 25 U/L (14-36); African American GFR (CKD) 86 (>60 ml/min/1.73 sqM); Alkaline Phosphatase 78 U/L (38-126); Anion Gap 10 mmol/L; Blood Urea Nitrogen 20 mg/dL (7-17); Calcium 9.4 mg/dL (8.4-10.2); Carbon Dioxide 27 mmol/L (22-30); Chloride 104 mmol/L (98-107); Glucose 138 mg/dL (74-99); Non-African American GFR(CKD) 75 (>60 ml/min/1.73 sqM); Potassium 3.4 mmol/L (3.5-5.1); Sodium 141 mmol/L (137-145); Total Bilirubin 0.8 mg/dL (0.2-1.3); Total Protein 6.8 g/dL (6.3-8.2)
[2024-10-01 21:03] LABS: NT-Pro-B-Type Natriuretic Pept 377 pg/mL
--- NOTE | 2024-10-01 21:24 | XR ---
EXAMINATION TYPE: XR chest 2V DATE OF EXAM: 10/01/2024 8:46 PM COMPARISON: Chest radiographs from 03/24/2021 CLINICAL INDICATION: Female, 68 years old with history of difficulty breathing; [facility] TECHNIQUE: XR chest 2V Frontal and lateral views of the chest. FINDINGS: Lungs/Pleura: There is no evidence of pleural effusion, focal consolidation, or pneumothorax. Pulmonary vascularity: Pulmonary vascular congestion. Heart/mediastinum: Cardiomediastinal silhouette is prominent in size. Musculoskeletal: No acute osseous pathology. IMPRESSION: Cardiomegaly and mild pulmonary vascular congestion. Correlate with BNP for congestive heart failure. [facility], , 10/01/2024 9:21 PM
[2024-10-01] MEDS ORDERED: VANCOMYCIN IV PER PHARMACY 1 EACH MISC MISCELLANE PRN (22:47)
--- NOTE | 2024-10-01 22:59 | ED ---
General Adult HPI - General Chief complaint: Shortness of Breath Stated complaint: Swollen Legs,JASON Time Seen by Provider: 10/01/24 21:35 Source: patient Mode of arrival: ambulatory Limitations: no limitations - History of Present Illness Initial comments: Patient is a 68 y/o female hx CHF, CAD, paroxysmal atrial fibrillation on Xarelto, presenting today for lower extremity swelling, erythema and shortness of breath. States she was hospitalized in [place] about 1 week ago for cellulitis of her lower extremities. At time of discharge pt was changed from 20 lasix BID to 40 lasix BID. Pt returned from [place] earlier today and ever since discharge from the hospital has had worsening LE swelling, redness and shortness of breath. Denies chest pain, cough productive of sputum, hemotysis or fevers. Denies dizziness, lightheadedness, numbness or focal weakness. No hx MRSA or DM. Denies hx COPD. Remote hx of smoking but quit 20 years ago. - Related Data Home Medications Medication Instructions Recorded Confirmed Furosemide [Lasix] 20 mg PO BID 11/14/17 10/02/24 Metoprolol Tartrate [Lopressor] 50 mg PO HS 11/14/17 10/02/24 Sertraline [Zoloft] 100 mg PO QAM 11/14/17 10/02/24 Losartan Potassium [Cozaar] 100 mg PO QAM 03/20/21 10/02/24 Montelukast Sodium [Singulair] 10 mg PO QAM 03/20/21 10/02/24 Potassium Chloride ER [K-Dur 10] 20 meq PO QAM 03/20/21 10/02/24 amLODIPine [Norvasc] 10 mg PO QAM 03/20/21 10/02/24 buPROPion XL [Wellbutrin XL] 150 mg PO QAM 03/20/21 10/02/24 Rivaroxaban [Xarelto] 20 mg PO W/SUPPER 01/31/23 10/02/24 Ezetimibe [Zetia] 10 mg PO DAILY 10/02/24 10/02/24 Pantoprazole Sodium [Protonix] 40 mg PO DAILY 10/02/24 10/02/24 hydrALAZINE HCL 25 mg PO DAILY 10/02/24 10/02/24 Previous Rx's Medication Instructions Recorded Atorvastatin [Lipitor] 40 mg PO DAILY #90 tab 02/03/23 Clopidogrel [Plavix] 75 mg PO DAILY #90 tab 02/03/23 Nitroglycerin Sl Tabs [Nitrostat] 0.4 mg SUBLINGUAL Q5M PRN #25 tab 02/03/23 Allergies Allergy/AdvReac Type Severity Reaction Status Date / Time No Known Allergies Allergy Verified 10/02/24 08:56 Review of Systems ROS Statement: Those systems with pertinent positive or pertinent negative responses have been documented in the HPI. ROS Other: All systems not noted in ROS Statement are negative. Past Medical History Past Medical History: GERD/Reflux, Hyperlipidemia, Hypertension Additional Past Medical History / Comment(s): LE EDEMA History of Any Multi-Drug Resistant Organisms: None Reported Past Surgical History: Appendectomy, Cholecystectomy, Hernia Repair, Hysterect yris Past Anesthesia/Blood Transfusion Reactions: No Reported Reaction Past Psychological History: Depression Smoking Status: Never smoker Past Alcohol Use History: None Reported Past Drug Use History: None Reported - Past Family History Mother Family Medical History: No Reported History Father Family Medical History: Myocardial Infarction (GA) General Exam - General Exam Comments Initial Comments: PE: CONSTITUTIONAL: No apparent distress, well appearing SKIN: Warm, dry, no jaundice, hives or petechiae. Mild circumferential erythema of the bilateral distal lower extremities without wounds EYES: Pupils are equally round, extraocular movements intact without nystagmus, clear conjunctiva, non-icteric sclera HENT: Normocephalic, atraumatic, moist mucus membranes, oropharynx clear without exudates NECK: , Full range of motion, normal appearance PULMONARY: Scant rhonchi in the bilateral lower lung field, otherwise no wheezes rales or stridor, normal excursion accessory muscle use CARDIOVASCULAR: Regular rate, rhythm, normal S1 and S2. No appreciated murmurs, rubs or gallops. Strong radial pulses with intact distal perfusion. 2-3+ bilateral lower extremity pitting edema GASTROINTESTINAL: Soft, active bowel sounds throughout, non-tender, non- distended, no palpable masses, no rebound or guarding. No hepatosplenomegaly GENITOURINARY: MUSCULOSKELETAL: Extremities have no gross deformity NEUROLOGIC:_a/o x 3, GCS 15, normal mentation and speech. Moves all extremities x 4 without motor or sensory deficit PSYCHIATRIC:_normal mood and affect, thought process is clear and linear Limitations: no limitations Course Vital Signs 10/01/24 10/02/24 10/02/24 20:20 00:00 03:02 Temperature 99.2 F 98.2 F Pulse Rate 71 80 65 Respiratory 15 20 15 Rate Blood Pressure 151/74 140/54 142/67 O2 Sat by Pulse 94 L 96 94 L Oximetry 10/02/24 10/02/24 10/02/24 04:52 04:58 09:33 Temperature 98.8 F Pulse Rate 77 66 Respiratory 18 20 18 Rate Blood Pressure 132/45 135/58 O2 Sat by Pulse 92 L 93 L Oximetry 10/02/24 10/02/24 10/02/24 12:01 13:17 15:36 Temperature 98.4 F Pulse Rate 75 72 74 Respiratory 16 18 16 Rate Blood Pressure 137/58 125/66 131/60 O2 Sat by Pulse 93 L 93 L 94 L Oximetry 10/02/24 16:10 Temperature 98.1 F Pulse Rate 78 Respiratory 18 Rate Blood Pressure 136/82 O2 Sat by Pulse 96 Oximetry Medical Decision Making - Medical Decision Making Was pt. sent in by a medical professional or institution (, PA, ANGLESMITH, urgent care, hospital, or [place] [facility] [place] facility...) When possible be specific @ -No Did you speak to anyone other than the patient for history (EMS, parent, family, police, friend...)? What history was obtained from this source @ -No Did you review nursing and triage notes (agree or disagree)? Why? @ -I reviewed nursing and triage notes- .The patient reports shortness of breath, swelling and chills as well as redness in her lower legs with a recent admission for cellulitis, I agree with triage statement patient reports the symptoms to me as well Were old charts reviewed (outside hosp., previous admission, EMS record, old EKG, old radiological studies, urgent care reports/EKG's, [place] health [place] records)? Report findings @ -Medical records reviewed- Reviewed cardiac cath report from 02/02/2023, patient was noted to have severe obstructing disease of the mid RCA with successful stenting Differential Diagnosis (chest pain, altered mental status, abdominal pain women, abdominal pain men, vaginal bleeding, weakness, fever, dyspnea, syncope, headache, dizziness, GI bleed, back pain, seizure, CVA, palpatations, mental health, musculoskeletal)? @ -Differential Dyspnea: Coronary syndrome, arrhythmia, tamponade, asthma, COPD, pulmonary embolism, pneumonia, pneumothorax, pulmonary effusion, anaphylaxis, diabetic ketoacidosis, flailed chest, pulmonary contusion, diaphragmatic rupture, anemia, neuromuscular, this is not meant to be an all-inclusive list. EKG interpreted by me (3pts min.). @ -As above X-rays interpreted by me (1pt min.). Personally reviewed chest x-ray cardiomegaly with pulmonary edema noted without consolidations or pleural effusions, I agree with radiologist interpretation CT interpreted by me (1pt min.). @ -None done U/S interpreted by me (1pt. min.). @ -None done What testing was considered but not performed or refused? (CT, X-rays, U/S, labs)? Why? @CT PE study was considered however patient is currently anticoagulated on Xare lto therefore very low suspicion for acute PE What meds were considered but not given or refused? Why? @ -None Did you discuss the management of the patient with other professionals (professionals i.e. , PA, ANGLESMITH, lab, RT, psych nurse, manager social, second cutter, teacher, enforcement safety officer, casework specialist)? Give summary @ -No Was smoking cessation discussed for >3mins.? @ -No Was critical care preformed (if so, how long)? @ -No Were there social determinants of health that impacted care today? How? (Home lessness, low income, unemployed, alcoholism, drug addiction, transportation, low edu. Level, literacy, decrease access to med. care, assisted, rehab)? @ -No Was there de-escalation of care discussed even if they declined (Discuss DNR or withdrawal of care, Hospice)? @ -No What co-morbidities impacted this encounter? (DM, HTN, Smoking, COPD, CAD, Cancer, CVA, ARF, Chemo, Hep., AIDS, mental health diagnosis, sleep apnea, morbid obesity)? @CHF, CAD, atrial fibrillation on Xarelto Was patient admitted / discharged? Hospital course, mention meds given and route, prescriptions, significant lab abnormalities, going to OR and other pertinent info. @Admission-is a pleasant 68-year-old female presenting today for progressive exertional dyspnea, lower extremity swelling and erythema of the bilateral lower extremities. Patient did spend a significant amount of time in the waiting room awaiting evaluation, due to emergency department at capacity secondary to multiple boarding patients in the ER; ATP orders were placed prior to my evaluation. My assessment patient is well-appearing and in no acute distress. She is resting comfortably. Respirations are unlabored. Scant rhonchi in the bilateral lower lung valenzuela. Prominent lower extremity edema. Mild erythema circumferentially on bilateral distal lower extremities. Labs are significant for mild leukocytosis,Potassium 3.4, GFR 75, BNP 377, troponin 0.014. Despite relatively low BNP, patient appears clinically volume overloaded, and com bination with chest x-ray reflective of pulmonary edema I suspect symptoms most likely secondary to CHF exacerbation. Patient will be treated for cellulitis with Rocephin and vancomycin, 80 mg IV Lasix ordered, oral potassium replacement ordered. I did ambulate patient independently and her pulse ox decreased to approximately 89 to 90% with ambulation with tachypnea. Patient did recover quickly. Discussed with patient plan for admission given severity of symptoms. She is agreeable plan. Case was discussed with Dr. Klein who kindly accepted patient for admission. Undiagnosed new problem with uncertain prognosis? @ -No Drug Therapy requiring intensive monitoring for toxicity (Heparin, Nitro, Insulin, Cardizem)? @ -No Were any procedures done? @ -No Diagnosis/symptom? @Acute congestive heart failure exacerbation, cellulitis Acute, or Chronic, or Acute on Chronic? @Acute Uncomplicated (without systemic symptoms) or Complicated (systemic symptoms)? @Complicated Side effects of treatment? @ -No Exacerbation, Progression, or Severe Exacerbation? @Exacerbation Poses a threat to life or bodily function? How? (Chest pain, USA, GA, pneumonia, PE, COPD, DKA, ARF, appy, cholecystitis, CVA, Diverticulitis, Homicidal, Suicidal, threat to staff... and all critical care pts) @ -Yes, if left untreated could progress to fulminant respiratory failure, cardiogenic shock and/or - Lab Data Result diagrams: 10/03/24 03:34 10/04/24 06:16 Lab Results 10/01/24 10/01/24 10/01/24 Range/Units 20:33 20:33 20:33 WBC 12.9 H (3.8-10.6) k/uL RBC 4.88 (3.80-5.40) m/uL Hgb 12.9 (11.4-16.0) gm/dL Hct 41.7 (34.0-46.0) % MCV 85.6 (80.0-100.0) fL MCH 26.4 (25.0-35.0) pg MCHC 30.8 L (31.0-37.0) g/dL RDW 14.8 (11.5-15.5) % Plt Count 285 (150-450) k/uL MPV 8.7 Neutrophils % 78 % Lymphocytes % 12 % Monocytes % 7 % Eosinophils % 2 % Basophils % 1 % Neutrophils # 10.0 H (1.3-7.7) k/uL Lymphocytes # 1.5 (1.0-4.8) k/uL Monocytes # 0.9 (0-1.0) k/uL Eosinophils # 0.2 (0-0.7) k/uL Basophils # 0.1 (0-0.2) k/uL PT 12.5 (10.0-12.5) sec INR 1.2 H (<1.2) APTT 27.5 (22.0-30.0) sec Sodium 141 (137-145) mmol/L Potassium 3.4 L (3.5-5.1) mmol/L Chloride 104 (98-107) mmol/L Carbon Dioxide 27 (22-30) mmol/L Anion Gap 10 mmol/L BUN 20 H (7-17) mg/dL Creatinine 0.81 (0.52-1.04) mg/dL Est GFR (CKD-EPI)AfAm 86 (>60 ml/min/1.73 sqM) Est GFR (CKD-EPI)NonAf 75 (>60 ml/min/1.73 sqM) Glucose 138 H (74-99) mg/dL Plasma Lactic Acid Bulmaro (0.7-2.0) mmol/L Calcium 9.4 (8.4-10.2) mg/dL Total Bilirubin 0.8 (0.2-1.3) mg/dL AST 25 (14-36) U/L ALT 21 (4-34) U/L Alkaline Phosphatase 78 (38-126) U/L Troponin I (0.000-0.034) ng/mL NT-Pro-B Natriuret Pep 377 pg/mL Total Protein 6.8 (6.3-8.2) g/dL Albumin 4.0 (3.5-5.0) g/dL 10/01/24 10/01/24 Range/Units 20:33 20:33 WBC (3.8-10.6) k/uL RBC (3.80-5.40) m/uL Hgb (11.4-16.0) gm/dL Hct (34.0-46.0) % MCV (80.0-100.0) fL MCH (25.0-35.0) pg MCHC (31.0-37.0) g/dL RDW (11.5-15.5) % Plt Count (150-450) k/uL MPV Neutrophils % % Lymphocytes % % Monocytes % % Eosinophils % % Basophils % % Neutrophils # (1.3-7.7) k/uL Lymphocytes # (1.0-4.8) k/uL Monocytes # (0-1.0) k/uL Eosinophils # (0-0.7) k/uL Basophils # (0-0.2) k/uL PT (10.0-12.5) sec INR (<1.2) APTT (22.0-30.0) sec Sodium (137-145) mmol/L Potassium (3.5-5.1) mmol/L Chloride (98-107) mmol/L Carbon Dioxide (22-30) mmol/L Anion Gap mmol/L BUN (7-17) mg/dL Creatinine (0.52-1.04) mg/dL Est GFR (CKD-EPI)AfAm (>60 ml/min/1.73 sqM) Est GFR (CKD-EPI)NonAf (>60 ml/min/1.73 sqM) Glucose (74-99) mg/dL Plasma Lactic Acid Bulmaro 1.5 (0.7-2.0) mmol/L Calcium (8.4-10.2) mg/dL Total Bilirubin (0.2-1.3) mg/dL AST (14-36) U/L ALT (4-34) U/L Alkaline Phosphatase (38-126) U/L Troponin I 0.014 (0.000-0.034) ng/mL NT-Pro-B Natriuret Pep pg/mL Total Protein (6.3-8.2) g/dL Albumin (3.5-5.0) g/dL Disposition Clinical Impression: Acute exacerbation of congestive heart failure, Cellulitis Disposition: ADMITTED IP TO THIS HOSP Condition: Stable
[2024-10-01] MEDS: FUROSEMIDE 10 MG/ML 10 ML VIAL IV STA (23:29)
[2024-10-01] MEDS: POTASSIUM BICARBONATE/CIT AC 20 MEQ TABLET.EFF PO ONE (23:29)
[2024-10-02] MEDS: VANCOMYCIN 2,000 MG in SODIUM CHLORIDE 0.9% 500 ML 500 ML IVPB ONE
--- NOTE | 2024-10-02 01:21 | P.HPIM ---
History of Present Illness H&P Date: 10/01/24 Patient is a 68-year-old female with CAD status post stent mid RCA, paroxysmal A-fib on Xarelto, hypertension, hyperlipidemia, GERD presenting with shortness of breath. Patient states she felt short of breath on exertion this morning. She reports that walking down her hallway caused her to be extremely short of breath. Patient denies any PND or orthopnea. She also reports of increased leg swelling bilaterally and admits to pain in both her legs. She attributes the pain to cellulitis which she was previously taking antibiotics for when she was in [place]. She recently got back from a long drive from [place]. Patient denies extensive smoking history, denies alcohol or drug use. Patient admits to chills. Patient denies any fever, headache, dizziness, chest pain, heart palpitations, nausea, vomiting, diarrhea, abdominal pain, urinary symptoms. CXR independently interpreted demonstrating pulmonary vascular congestion, cardiomegaly T 99.2 F, AL 71, RR 15, BP 157/74, O2 sat 94% on room air ED documentation reviewed. Review of systems: Pertinent positives and negatives as discussed in HPI, a complete review of systems was performed and all other systems are negative. Physical examination: Vital signs reviewed General: non toxic, no distress, appears at stated age, morbidly obese Derm: no unusual rashes/lesions, warm Head: atraumatic, normocephalic, symmetric Eyes: EOMI, anicteric sclera, pupils equal round reactive to light ENT: Nose and ears atraumatic Mouth: no lip lesion, mucus membranes moist Cardiovascular: S1S2 reg, no murmur, positive dorsalis pedis pulse bilateral Lungs: CTA bilateral, no rhonchi, no rales, no accessory muscle use Abdominal: soft, nontender to palpation, no guarding Ext: muscle strength 5 out of 5 in all 4 extremities grossly, no gross muscle atrophy, bilateral lower extremity 2+ pitting edema below knee, erythema lower 2/3 of the leg , warm to the touch , slightly tender bilaterally Neuro: CN II-XI grossly intact, no gross focal neuro deficits Psych: Alert, oriented to person, place, and time Assessment/Plan: Patient is a 68-year-old female with CAD status post stent mid RCA, paroxysmal A-fib on Xarelto, hypertension, hyperlipidemia, GERD presenting with shortness of breath. ED documentation reviewed. Discussed with patient. The patient is admitted with an anticipated greater than 2 midnight stay for evaluation of acute heart failure. Active: #. Acute on chronic heart failure exacerbation Echocardiogram on showed EF of 50-55% (2020) Patient reports dyspnea on exertion after walking down her hallway proBNP within normal limit baseline of 7, troponin 0.014 => 0.020 continue to trend troponin CXR independently interpreted demonstrating pulmonary vascular congestion Bilateral 2+ pitting edema below knee S/p Lasix 80 mg IV once by ED, continue with Lasix 80 mg q12hr Resume Cozaar 100 mg PO every morning and metoprolol 50 mg PO at bedtime Echocardiogram pending Cardiac telemetry Heart healthy diet Daily weights Intake/output Cardiology consulted supplemental oxygen as needed due to recent travel by car, check d dimer and bilateral LE doppler to rule out DVT #. Cellulitis #. Leukocytosis secondary to above SIRS 1 with WBC 12.9 Rocephin 2 g IVPB given once by ED Vancomycin dosed by pharmacy tylenol PRN for fever, 650 mg po q6hr #. Hypokalemia K 3.4 Replace with KCl 40 mEq p.o. once Chronic: #. Coronary artery disease, status post stent and right ICA Continue with atorvastatin 40 mg p.o. daily Continue with Plavix 75 mg p.o. daily #. GERD: Omeprazole 20 mg p.o. twice daily #. Depression/anxiety: Resume antidepressant medication once reconciled #. Paroxysmal A-fib: Xarelto 20 mg p.o. daily, metoprolol 50 mg p.o. at bedtime DVT prophylaxis: Xarelto 20 mg p.o. daily CODE STATUS: Full code Anticipated discharge place: Pending clinical course Clark Jauregui MD PGY-1 IM Dictation was produced using [employer] dictation software. please excuse any grammatical, word or spelling errors. I have seen and evaluated the patient today. I Discussed the case with the resident and agree with the resident's findings I edited the assessment and plan as necessary as documented in the resident's note. Past Medical History Past Medical History: GERD/Reflux, Hyperlipidemia, Hypertension Additional Past Medical History / Comment(s): LE EDEMA History of Any Multi-Drug Resistant Organisms: None Reported Past Surgical History: Appendectomy, Cholecystectomy, Hernia Repair, Hysterectomy Past Anesthesia/Blood Transfusion Reactions: No Reported Reaction Past Psychological History: Depression Smoking Status: Never smoker Past Alcohol Use History: None Reported Past Drug Use History: None Reported - Past Family History Mother Family Medical History: No Reported History Father Family Medical History: Myocardial Infarction ([place]) Medications and Allergies Home Medications Medication Instructions Recorded Confirmed Type Furosemide [Lasix] 20 mg PO QAM 11/14/17 02/02/23 History Metoprolol Tartrate [Lopressor] 50 mg PO HS 11/14/17 02/02/23 History Omeprazole 20 mg PO BID 11/14/17 02/02/23 History Sertraline [Zoloft] 100 mg PO QAM 11/14/17 02/02/23 History Losartan Potassium [Cozaar] 100 mg PO QAM 03/20/21 02/02/23 History Montelukast Sodium [Singulair] 10 mg PO QAM 03/20/21 02/02/23 History Potassium Chloride ER [K-Dur 10] 20 meq PO QAM 03/20/21 02/02/23 History amLODIPine [Norvasc] 10 mg PO QAM 03/20/21 02/02/23 History buPROPion XL [Wellbutrin XL] 150 mg PO QAM 03/20/21 02/02/23 History Rivaroxaban [Xarelto] 20 mg PO W/SUPPER 01/31/23 02/02/23 History Sucralfate [Carafate] 1 gm PO BID 01/31/23 02/02/23 History Aspirin 81 mg PO DAILY tab 02/03/23 Rx Atorvastatin [Lipitor] 40 mg PO DAILY #90 tab 02/03/23 Rx Clopidogrel [Plavix] 75 mg PO DAILY #90 tab 02/03/23 Rx Nitroglycerin Sl Tabs [Nitrostat] 0.4 mg SUBLINGUAL Q5M PRN #25 tab 02/03/23 Rx Allergies Allergy/AdvReac Type Severity Reaction Status Date / Time No Known Allergies Allergy Verified 02/02/23 11:16 Physical Exam Vitals: Vital Signs Temp Pulse Resp BP Pulse Ox 10/01/24 20:20 99.2 F 71 15 151/74 94 L Intake and Output 10/01/24 10/01/24 10/02/24 14:59 22:59 06:59 Other: Weight 136.078 kg Results CBC & Chem 7: 10/01/24 20:33 10/01/24 20:33 Labs: Abnormal Lab Results - Last 24 Hours (Table) 10/01/24 10/01/24 10/01/24 Range/Units 20:33 20:33 20:33 WBC 12.9 H (3.8-10.6) k/uL MCHC 30.8 L (31.0-37.0) g/dL Neutrophils # 10.0 H (1.3-7.7) k/uL INR 1.2 H (<1.2) Potassium 3.4 L (3.5-5.1) mmol/L BUN 20 H (7-17) mg/dL Glucose 138 H (74-99) mg/dL
[2024-10-02 05:48] LABS: Basophils # (A) 0.1 k/uL (0-0.2); Basophils % (A) 0 %; Eosinophils # (A) 0.2 k/uL (0-0.7); Eosinophils % (A) 2 %; HCT 39.9 % (34.0-46.0); HGB 12.1 gm/dL (11.4-16.0); Lymphocytes # (A) 1.9 k/uL (1.0-4.8); Lymphocytes % (A) 16 %; MCHC 30.2 g/dL (31.0-37.0); MCV 86.3 fL (80.0-100.0); Mean Platelet Volume 9.2; Monocytes # (A) 0.8 k/uL (0-1.0); Monocytes % (A) 6 %; Neutrophils # (A) 8.8 k/uL (1.3-7.7); Neutrophils % (A) 74 %; Platelet Count 267 k/uL (150-450); RBC 4.63 m/uL (3.80-5.40); RDW 14.7 % (11.5-15.5); WBC 11.8 k/uL (3.8-10.6)
[2024-10-02 05:55] LABS: ALT 18 U/L (4-34); AST 21 U/L (14-36); African American GFR (CKD) >90 (>60 ml/min/1.73 sqM); Albumin 3.5 g/dL (3.5-5.0); Albumin/Globulin Ratio 1.3; Alkaline Phosphatase 77 U/L (38-126); Anion Gap 7 mmol/L; Blood Urea Nitrogen 15 mg/dL (7-17); Carbon Dioxide 29 mmol/L (22-30); Chloride 102 mmol/L (98-107); Globulin 2.7 g/dL; Glucose 126 mg/dL (74-99); Magnesium 1.9 mg/dL (1.6-2.3); Non-African American GFR(CKD) 81 (>60 ml/min/1.73 sqM); Sodium 138 mmol/L (137-145); Total Bilirubin 0.9 mg/dL (0.2-1.3); Total Protein 6.2 g/dL (6.3-8.2)
--- NOTE | 2024-10-02 07:43 | US ---
EXAMINATION TYPE: US venous doppler duplex LE BI DATE OF EXAM: 10/02/2024 7:22 AM COMPARISON: NONE CLINICAL INDICATION: Female, 68 years old with history of swelling; Heart stents, on thinners, fell t hree weeks ago, seen in hospital four weeks ago for cellulitis, swelling for 3 weeks, no history of D VT, Pain TECHNIQUE: The lower extremity deep venous system is examined utilizing real time linear array sonog michael with graded compression, color doppler sonography, and spectral doppler. SIDE PERFORMED: Bilateral FINDINGS: VESSELS IMAGED: Common Femoral Vein Deep Femoral Vein Greater Saphenous Vein * Femoral Vein Popliteal Vein Small Saphenous Vein * Proximal Calf Veins (* superficial vessels) Right Leg: Negative for DVT, Color Doppler imaging shows patency of the vessels. Spectral waveforms are within normal limits. Left Leg: Negative for DVT, Color Doppler imaging shows patency of the vessels. Spectral waveforms a re within normal limits. IMPRESSION: No ultrasound evidence for deep venous thrombosis. [facility], , 10/02/2024 7:41 AM
[2024-10-02] MEDS: LOSARTAN 50 MG TAB PO SCH (09:36)
[2024-10-02] MEDS: MONTELUKAST 10 MG TAB PO SCH (09:36)
[2024-10-02] MEDS: PANTOPRAZOLE 40 MG TABLET PO SCH (09:36)
[2024-10-02] MEDS: CLOPIDOGREL 75 MG TAB PO SCH (09:36)
[2024-10-02] MEDS: amLODIPine 10 MG TAB PO SCH (09:36)
[2024-10-02] MEDS: ATORVASTATIN 40 MG TAB PO SCH (09:36)
[2024-10-02] MEDS: FUROSEMIDE 10 MG/ML 10 ML VIAL IV SCH (09:39)
[2024-10-02] MEDS: POTASSIUM CHLORIDE ER 20 MEQ TAB.ER PO STA (10:14)
[2024-10-02] MEDS: VANCOMYCIN 2,250 MG in SODIUM CHLORIDE 0.9% 500 ML 500 ML IVPB SCH (12:04)
--- NOTE | 2024-10-02 12:39 | P.CRDCN ---
History of Present Illness Consult date: 10/02/24 Consult reason: congestive heart failure History of present illness: This is a 68-year-old female patient of Dr. Merino with past medical history of CAD status post PCI, paroxysmal atrial fibrillation on Xarelto, hypertension, hyperlipidemia, obstructive sleep apnea on CPAP. We have been asked to evaluate the patient for CHF. Patient presented to the emergency center due to shortness of breath, dyspnea on exertion. Patient denies chest pain. She reports lower extremity edema. Blood pressure 132/45, heart rate 77, pulse ox 92% on 2 L nasal cannula. Patient has been started on IV Lasix 80 mg every 12 hours. Patient has been seen in the emergency center waiting for bed on the observation unit. -EKG: Sinus rhythm with no acute ST-T wave changes. #2 atrial fibrillation 74 bpm -Chest x-ray: Cardiomegaly with mild pulmonary vascular congestion. -Venous duplex bilateral lower extremity negative for DVT. -Laboratory studies: WBC 12.9, hemoglobin 12.1, D-dimer 0.5, potassium 3.0, BUN 15, creatinine 0.76. Troponin negative x 3. proBNP 377. -Home cardiac medications: Amlodipine 10 mg daily, atorvastatin 40 mg daily, Plavix 75 mg daily, Zetia 10 mg daily, Lasix 20 mg twice daily, hydralazine 25 mg daily, losartan 100 mg daily, Lopressor 50 mg at bedtime, Potassium chloride 20 mill equivalents daily, Xarelto 20 mg with supper. -Cardiac catheterization and stent of the mid RCA 02/02/2023 -Echocardiogram performed in the office on 01/20/2023 revealed EF of 50 to 55%, severe left ventricular hypertrophy. Mild aortic regurgitation and mild aortic stenosis. Mild mitral regurgitation. Mild tricuspid regurgitation. PASP 47 mmHg. Review Of Systems: At the time of my exam: CONSTITUTIONAL: Denies fever or chills. HEENT: Denies blurred vision, vision changes, or eye pain. Denies hemoptysis CARDIOVASCULAR: Denies chest pain. Denies orthopnea. Denies PND. Denies palpitations RESPIRATORY: Denies shortness of breath. GASTROINTESTINAL: Denies abdominal pain. Denies nausea or vomiting. HEMATOLOGIC: Denies bleeding disorders. GENITOURINARY: Denies any blood in urine. SKIN: Denies puritis. Denies rash. Physical examination: Gen: This is a 68-year-old female in no acute distress. VS: reviewed HEENT: Head is atraumatic, normocephalic. Pupils equal, round. Sclerae is anicteric. NECK: Supple. No JVD. LUNGS: Clear to auscultation. No wheezes or rhonchi. No intercostal retractions. HEART: Regular rate and rhythm. Second heart sound is normal. 2/6 systolic murmur. ABDOMEN: Soft No tenderness. EXTREMITIES: No edema. No calf tenderness. NEUROLOGICAL: Patient is awake, alert and oriented x3. Assessment: Mild acute on chronic diastolic heart failure History of CAD status post PCI Paroxysmal atrial fibrillation on Xarelto Moderate aortic stenosis Hypertension Hyperlipidemia Obstructive sleep apnea on CPAP Plan: Resume patient's home cardiac medications Reduce IV Lasix to 40 mg every 12 hours Monitor SHERRY, daily weights, electrolytes and renal function Obtain 2-D echocardiogram and Doppler study to assess cardiac structure and function Further recommendations to follow based upon clinical course Thank you kindly for this consultation. Nurse practitioner note has been reviewed, I agree with documented findings and plan of care. Patient was seen and examined. Past Medical History Past Medical History: GERD/Reflux, Hyperlipidemia, Hypertension Additional Past Medical History / Comment(s): LE EDEMA History of Any Multi-Drug Resistant Organisms: None Reported Past Surgical History: Appendectomy, Cholecystectomy, Hernia Repair, Hysterectomy Past Anesthesia/Blood Transfusion Reactions: No Reported Reaction Past Psychological History: Depression Smoking Status: Never smoker Past Alcohol Use History: None Reported Past Drug Use History: None Reported - Past Family History Mother Family Medical History: No Reported History Father Family Medical History: Myocardial Infarction ([place]) Medications and Allergies Home Medications Medication Instructions Recorded Confirmed Type Furosemide [Lasix] 20 mg PO BID 11/14/17 10/02/24 History Metoprolol Tartrate [Lopressor] 50 mg PO HS 11/14/17 10/02/24 History Sertraline [Zoloft] 100 mg PO QAM 11/14/17 10/02/24 History Losartan Potassium [Cozaar] 100 mg PO QAM 03/20/21 10/02/24 History Montelukast Sodium [Singulair] 10 mg PO QAM 03/20/21 10/02/24 History Potassium Chloride ER [K-Dur 10] 20 meq PO QAM 03/20/21 10/02/24 History amLODIPine [Norvasc] 10 mg PO QAM 03/20/21 10/02/24 History buPROPion XL [Wellbutrin XL] 150 mg PO QAM 03/20/21 10/02/24 History Rivaroxaban [Xarelto] 20 mg PO W/SUPPER 01/31/23 10/02/24 History Atorvastatin [Lipitor] 40 mg PO DAILY #90 tab 02/03/23 10/02/24 Rx Clopidogrel [Plavix] 75 mg PO DAILY #90 tab 02/03/23 10/02/24 Rx Nitroglycerin Sl Tabs [Nitrostat] 0.4 mg SUBLINGUAL Q5M PRN #25 tab 02/03/23 10/02/24 Rx Ezetimibe [Zetia] 10 mg PO DAILY 10/02/24 10/02/24 History Pantoprazole Sodium [Protonix] 40 mg PO DAILY 10/02/24 10/02/24 History hydrALAZINE HCL 25 mg PO DAILY 10/02/24 10/02/24 History Allergies Allergy/AdvReac Type Severity Reaction Status Date / Time No Known Allergies Allergy Verified 10/02/24 08:56 Physical Exam Vitals: Vital Signs Temp Pulse Resp BP Pulse Ox 10/02/24 04:58 20 10/02/24 04:52 77 18 132/45 92 L 10/02/24 03:02 98.2 F 65 15 142/67 94 L 10/02/24 00:00 80 20 140/54 96 10/01/24 20:20 99.2 F 71 15 151/74 94 L Intake and Output 10/01/24 10/02/24 10/02/24 22:59 06:59 14:59 Other: Weight 136.078 kg Results 10/02/24 04:36 10/02/24 04:36 Cardiac Enzymes 10/01/24 10/01/24 10/01/24 Range/Units 20:33 20:33 23:58 AST 25 (14-36) U/L Troponin I 0.014 0.020 (0.000-0.034) ng/mL 10/02/24 10/02/24 Range/Units 01:29 04:36 AST 21 (14-36) U/L Troponin I 0.024 (0.000-0.034) ng/mL Coagulation 10/01/24 Range/Units 20:33 PT 12.5 (10.0-12.5) sec APTT 27.5 (22.0-30.0) sec CBC 10/01/24 10/02/24 Range/Units 20:33 04:36 WBC 12.9 H 11.8 H (3.8-10.6) k/uL RBC 4.88 4.63 (3.80-5.40) m/uL Hgb 12.9 12.1 (11.4-16.0) gm/dL Hct 41.7 39.9 (34.0-46.0) % Plt Count 285 267 (150-450) k/uL Comprehensive Metabolic Panel 10/01/24 10/02/24 Range/Units 20:33 04:36 Sodium 141 138 (137-145) mmol/L Potassium 3.4 L 3.0 L (3.5-5.1) mmol/L Chloride 104 102 (98-107) mmol/L Carbon Dioxide 27 29 (22-30) mmol/L BUN 20 H 15 (7-17) mg/dL Creatinine 0.81 0.76 (0.52-1.04) mg/dL Glucose 138 H 126 H (74-99) mg/dL Calcium 9.4 9.0 (8.4-10.2) mg/dL AST 25 21 (14-36) U/L ALT 21 18 (4-34) U/L Alkaline Phosphatase 78 77 (38-126) U/L Total Protein 6.8 6.2 L (6.3-8.2) g/dL Albumin 4.0 3.5 (3.5-5.0) g/dL Current Medications Generic Name Dose Route Start Last Admin Trade Name Freq PRN Reason Stop Dose Admin Amlodipine Besylate 10 mg 10/02/24 09:00 Amlodipine 10 Mg Tab PO QAM [facility] Atorvastatin Calcium 40 mg 10/02/24 09:00 Atorvastatin 40 Mg Tab PO DAILY [facility] Clopidogrel Bisulfate 75 mg 10/02/24 09:00 Clopidogrel 75 Mg Tab PO DAILY [facility] Furosemide 80 mg 10/02/24 09:00 Furosemide 10 Mg/Ml 10 Ml Vial IV Q12HR [facility] Vancomycin HCl 2,250 mg/ 500 mls @ 167 mls/hr 10/02/24 12:00 Sodium Chloride IVPB Q16H [facility] Losartan Potassium 100 mg 10/02/24 09:00 Losartan 50 Mg Tab PO QAM [facility] Metoprolol Tartrate 50 mg 10/02/24 21:00 Metoprolol Tartrate 50 Mg Tab PO HS [facility] Montelukast Sodium 10 mg 10/02/24 09:00 Montelukast 10 Mg Tab PO QAM [facility] Pantoprazole Sodium 40 mg 10/02/24 07:30 Pantoprazole 40 Mg Tablet PO AC-BRKFST [facility] Rivaroxaban 20 mg 10/02/24 17:30 Rivaroxaban 20 Mg Tab PO W/SUPPER [facility] Protocol Intake and Output 10/01/24 10/02/24 10/02/24 22:59 06:59 14:59 Other: Weight 136.078 kg 10/02/24 04:36 10/02/24 04:36
--- NOTE | 2024-10-02 13:30 | P.PN ---
Subjective Progress Note Date: 10/02/24 Hospital course: Patient is a pleasant 68-year-old female with a past medical history of CAD status post stenting to mid RCA, paroxysmal atrial fibrillation on anticoagulation with Xarelto, obstructive sleep apnea CPAP dependent nightly, hypertension, hyperlipidemia, and GERD. She presented to the hospital on 10/01/2024 with a chief complaint of shortness of breath. Upon arrival to our facility, patient underwent evaluation in the emergency department. Vital signs upon arrival show blood pressure 151/74 heart rate 71, respiratory rate 15, temp 99.2 F, and SpO2 4% on room air. Labs completed and reviewed. CBC showing leukocytosis with WBC count of 12.9. Coagulation profile showing elevated INR 1.2 and normal 0.50. BMP showing hypokalemia with potassium of 3.4 and mild prerenal azotemia with BUN of 28. Blood glucose 138. Lactic acid 1.5. Liver profile unremarkable. Troponin 0.014 with proBNP 377. Patient admitted under our services with consultation to cardiology. Troponins trended overnight, remained negative but uptrending at 0.014, 0.020, 0.024. BLE Venous Dopplers negative for DVT. Initial EKG showing sinus mechanism with sinus arrhythmia at 75 bpm with nonspecific T wave abnormality in lateral leads. Repeat EKG showing atrial fibrillation with a controlled ventricular rate of 74 bpm with nonspecific T wave abnormalities in lateral leads. Physical exam: Patient seen and fully evaluated at bedside. She currently reports feeling slightly short of breath but states much better since arrival to our facility states shortness of breath is worse on exertion and she has not been ambulating in the emergency department. Patient remains holding in the ER awaiting bed assignment at this time. Patient denies having any headache, lightheadedness, dizziness, chest pain, palpitations, or any other complaints at this time. She does report chronic increased sensitivity/pain to bilateral lower extremities and states swelling in lower extremities is about the same as baseline, may be slightly worsened. Vital signs reviewed and stable. General: Nontoxic, no distress and appears stated age. Derm: Skin warm and dry, normal coloration for ethnicity. Head: Atraumatic, normocephalic and symmetric. Eyes: EOM's intact, no lid lag, and anicteric sclera Mouth: no lip lesions, mucus membranes moist Cardiovascular: regular rate and rhythm with normal S1S2, systolic murmur, positive posterior tibial pulses bilaterally, and cap refill < 2 seconds. Lungs: Respirations even, regular, and unlabored on 2 L O2 via nasal cannula. Lungs diminished, no rhonchi, no rales, no wheezing, and no accessory muscle usage. Abdominal: soft, nontender to palpation, no guarding, no appreciable organomegaly Ext: ROM intact. No gross muscle atrophy, 1-2+ pitting bilateral lower extremity edema, no contractures. Mak venous discoloration BLE Neuro: Speech clear, face symmetrical and CN II-XII grossly intact with no noted focal neuro deficits Psych: Alert and oriented to person, place, time, and situation. Appropriate and pleasant affect. Assessment and Plan of Care: Mild acute on chronic diastolic heart failure exacerbation Paroxysmal atrial fibrillation History of CAD status post stenting Aortic stenosis Hypertension Hyperlipidemia -Cardiology consult discussed plan of care with cardiac MATERIAL PLANNER. -Telemetry monitoring -Continue Lasix 40 mg IVP every 12 hours -Continue cardiac medication regimen with atorvastatin 40 mg daily, Plavix 75 mg daily, losartan 100 mg daily, metoprolol 50 mg nightly, and Xarelto 20 mg daily. -Daily weights -Close monitoring of I's and O's -Cardiac diet -Continued close monitoring of electrolytes while diuresing. -Order placed for SELMA hose to bilateral lower extremities. Venous stasis dermatitis - unlikely cellulitis, given it is bilateral - IV vanco discontinued Hypokalemia -Potassium 3.0. Order placed for K-Dur 40 mEq p.o. x 1 dose. Will continue to monitor with repeat morning labs and replace abnormal electrolyte values as indicated based upon findings. Obstructive sleep apnea -Continue CPAP nightly and while napping. Data and imaging reviewed: Vital signs reviewed. Blood pressure 135/58, heart rate 66, respiratory rate 18, temp 98.8 F, and SpO2 of 93% on 2 L O2 via nasal cannula. Morning labs reviewed. CBC showing leukocytosis with WBC count of 11.8. BMP showing hypokalemia with potassium of 3.0. Blood glucose 126. Liver profile unremarkable with exception of slightly low total protein of 6.2. CODE STATUS: Full code DVT prophylaxis: Xarelto Discussed with: Patient, RN, patient's family and cardiac MATERIAL PLANNER. Anticipated discharge date: Pending clinical course likely tomorrow Anticipated discharge place: Home Patient was seen independently by Nurse Pracitioner. This document was prepared using Dragon dictation software. Please allow for errors in computer specialist, while rare they do occur. Gil Brady, MATERIAL PLANNER rendered care for this patient independently, reviewed the findings and plan as documented in the note above and agree with plan. I did not physically speak with or examine the patient on this date. Objective - Vital Signs Vital signs: Vital Signs Temp 98.8 F 10/02/24 09:33 Pulse 66 10/02/24 09:33 Resp 18 10/02/24 09:33 BP 135/58 10/02/24 09:33 Pulse Ox 93 L 10/02/24 09:33 FiO2 Intake & Output 10/01/24 10/02/24 10/02/24 18:59 06:59 18:59 Weight 136.078 kg - Labs CBC & Chem 7: 10/02/24 04:36 10/02/24 04:36 Labs: Abnormal Lab Results - Last 24 Hours (Table) 10/01/24 10/01/24 10/01/24 Range/Units 20:33 20:33 20:33 WBC 12.9 H (3.8-10.6) k/uL MCHC 30.8 L (31.0-37.0) g/dL Neutrophils # 10.0 H (1.3-7.7) k/uL INR 1.2 H (<1.2) Potassium 3.4 L (3.5-5.1) mmol/L BUN 20 H (7-17) mg/dL Glucose 138 H (74-99) mg/dL Total Protein (6.3-8.2) g/dL 10/02/24 10/02/24 Range/Units 04:36 04:36 WBC 11.8 H (3.8-10.6) k/uL MCHC 30.2 L (31.0-37.0) g/dL Neutrophils # 8.8 H (1.3-7.7) k/uL INR (<1.2) Potassium 3.0 L (3.5-5.1) mmol/L BUN (7-17) mg/dL Glucose 126 H (74-99) mg/dL Total Protein 6.2 L (6.3-8.2) g/dL
[2024-10-02] MEDS ORDERED: VANCOMYCIN 2,000 MG in SODIUM CHLORIDE 0.9% 500 ML 500 ML IVPB SCH (16:00)
[2024-10-02] MEDS: RIVAROXABAN 20 MG TAB PO SCH (18:27)
[2024-10-02] MEDS: METOPROLOL TARTRATE 50 MG TAB PO SCH (20:03)
[2024-10-02] MEDS: FUROSEMIDE 10 MG/ML 4 ML VIAL IV SCH (20:03)
[2024-10-03] MEDS ORDERED: guaiFENesin 600 MG TABLET.ER PO PRN (02:36)
[2024-10-03 03:12] LABS: ABG Base Excess 5.8 mmol/L; ABG HCO3 29 mmol/L (21-25); ABG PCO2 36 mmHg (35-45); ABG PH 7.51 (7.35-7.45); ABG TCO2 30 mmol/L (19-24); Allen Test Performed? Yes
[2024-10-03 03:20] LABS: ABG PO2 48 mmHg (83-108)
[2024-10-03 03:30] LABS: Influenza A Not Detected (Not Detectd); Influenza B Not Detected (Not Detectd); RSV Not Detected (Not Detectd)
[2024-10-03] MEDS: FUROSEMIDE 10 MG/ML 4 ML VIAL IV STA (03:38)
[2024-10-03 03:47] LABS: HCT 39.4 % (34.0-46.0); HGB 12.5 gm/dL (11.4-16.0); Hypochromasia Slight; MCH 26.6 pg (25.0-35.0); MCHC 31.8 g/dL (31.0-37.0); MCV 83.7 fL (80.0-100.0); Mean Platelet Volume 8.3; Platelet Count 266 k/uL (150-450); RBC 4.71 m/uL (3.80-5.40); RDW 14.4 % (11.5-15.5); WBC 15.5 k/uL (3.8-10.6)
[2024-10-03 04:02] LABS: African American GFR (CKD) >90 (>60 ml/min/1.73 sqM); Anion Gap 7 mmol/L; Blood Urea Nitrogen 12 mg/dL (7-17); Carbon Dioxide 30 mmol/L (22-30); Chloride 100 mmol/L (98-107); Glucose 129 mg/dL (74-99); Non-African American GFR(CKD) 90 (>60 ml/min/1.73 sqM); Potassium 3.2 mmol/L (3.5-5.1); Sodium 137 mmol/L (137-145)
--- NOTE | 2024-10-03 05:14 | XR ---
EXAM: XR Chest, 1 View CLINICAL HISTORY: ITS.REASON XR Reason: diff breathing TECHNIQUE: Frontal view of the chest. COMPARISON: X-ray dated 10/01/2024. FINDINGS: Lungs: Increasing confluent opacity seen within the right upper lobe. Pleural space: Unremarkable. No pneumothorax. Heart: Unremarkable. No cardiomegaly. Mediastinum: Unremarkable. Normal mediastinal contour. Bones/joints: Degenerative changes of spine and shoulders. No acute fracture. Vasculature: Calcifications overlie the aorta. IMPRESSION: Right upper lobe pneumonia.
--- NOTE | 2024-10-03 05:44 | P.EN ---
Patient became hypoxic overnight she is admitted for CHF exacerbation and possible cellulitis she has been on vancomycin since admission Overnight became progressively hypoxic with oxygen saturation in the low 80s percent ABG showed pH 7.5 CO2 36 pO2 48, chest x-ray showed diffuse patchy infiltrates which possibly could be component of pulmonary edema versus pneumonia especially in the background of elevated white count that is been trending up however patient remains afebrile, patient had venous Doppler ultrasound of her lower extremities upon admission which was negative for acute DVT patient is anticoagulated with Xarelto from home due to history of paroxysmal A-fib Based on the above findings clinical suspicion was that she is slightly fluid overloaded Lasix was given overnight patient urinated good amount her oxygen saturation slightly improved currently she is on nonrebreather Continue to monitor progression and improvement while keeping pneumonia in the background for being a possible in the differential. Consider repeating chest x-ray in the morning if the patchy infiltrates in the right upper lobe of the lungs remains unchanged despite good urine output or the patient started spiking fever I would consider adding Rocephin and azithromycin for treatment of pneumonia Possibility of PE is lower on the differential based on the findings on the chest x-ray, slightly elevated D-dimer however she is anticoagulated with Xarelto and her lower extremity ultrasound was negative for acute DVT Patient was reevaluated she is laying comfortably in bed denies any chest pain or trouble breathing at this time. However nurse indicated that patient earlier during the shift desats if she ambulates
[2024-10-03] MEDS: AZITHROMYCIN 500 MG TAB PO SCH (10:02)
[2024-10-03] MEDS: POTASSIUM CHLORIDE ER 20 MEQ TAB.ER PO STA (10:02)
[2024-10-03 10:53] VITALS: BMI 47.0
--- NOTE | 2024-10-03 11:18 | CA ---
Transthoracic Echo Report Name: Rochelle Plummer Age: 68 Gender: F : 1955 Exam Date: 10/03/2024 08:58 Exam Location: [facility] Ht (in): 67 Wt (lb): 300 Ordering Physician: Virginia Cross MD Attending/Referring Phys: Heavy [employer]man Jasmin Ware RDCS Procedure CPT: Indications: Heart failure Cardiac Hx: Technical Quality: Fair Contrast 1: Total Dose (mL): Contrast 2: Total Dose (mL): MEASUREMENTS (Male / Female) Normal Values 2D ECHO LV Diastolic Diameter PLAX 3.8 cm 4.2 - 5.9 / 3.9 - 5.3 cm LV Systolic Diameter PLAX 2.6 cm IVS Diastolic Thickness 1.4 cm 0.6 - 1.0 / 0.6 - 0.9 cm LVPW Diastolic Thickness 1.2 cm 0.6 - 1.0 / 0.6 - 0.9 cm LV Relative Wall Thickness 0.7 RV Internal Dim ED PLAX 2.6 cm LVOT Diameter 1.7 cm LA Systolic Diameter LX 4.2 cm 3.0 - 4.0 / 2.7 - 3.8 cm LV Diastolic Volume MOD BP 105.0 cm??? 67 - 155 / 56 - 104 cm??? LV Systolic Volume MOD BP 30.3 cm??? 22 - 58 / 19 - 49 cm??? LV Ejection Fraction MOD BP 71.1 % >= 55 % LV Cardiac Index MOD BP 1887.5 cm???/min???m??? LV Diastolic Volume MOD 4C 103.7 cm??? LV Systolic Volume MOD 4C 29.7 cm??? LV Ejection Fraction MOD 4C 71.4 % LV Cardiac Index MOD 4C 1870.5 cm???/min???m??? LV Diastolic Length 4C 8.6 cm LV Systolic Length 4C 7.2 cm LV Diastolic Volume MOD 2C 97.7 cm??? LV Systolic Volume MOD 2C 30.2 cm??? LV Ejection Fraction MOD 2C 69.0 % LV Cardiac Index MOD 2C 1704.2 cm???/min???m??? LV Diastolic Length 2C 7.9 cm LV Systolic Length 2C 6.8 cm M-MODE Aortic Root Diameter MM 2.8 cm LA Systolic Diameter MM 4.4 cm LA Ao Ratio MM 1.6 AV Cusp Separation MM 1.2 cm DOPPLER AV Peak Velocity 301.5 cm/s AV Peak Gradient 36.4 mmHg AV Mean Velocity 226.9 cm/s AV Mean Gradient 23.0 mmHg AV Velocity Time Integral 71.6 cm AI Peak Velocity 291.4 cm/s AI Peak Gradient 34.0 mmHg AI Pressure Half Time 861.3 ms LVOT Peak Velocity 129.0 cm/s LVOT Peak Gradient 6.7 mmHg LVOT Velocity Time Integral 33.5 cm LVOT Stroke Volume 77.4 cm??? LVOT Stroke Volume Index 32.2 ml/m??? LVOT Cardiac Index 1957.1 cm???/min???m??? AV Area Cont Eq vti 1.1 cm??? AV Area Cont Eq pk 1.0 cm??? Mitral E Point Velocity 128.1 cm/s Mitral A Point Velocity 66.8 cm/s Mitral E to A Ratio 1.9 MV Deceleration Time 363.3 ms MV E' Velocity 7.8 cm/s Mitral E to MV E' Ratio 16.5 TR Peak Velocity 270.7 cm/s TR Peak Gradient 29.3 mmHg Right Ventricular Systolic Press 39.3 mmHg FINDINGS Left Ventricle Left ventricular ejection fraction is estimated at 60-65%. Moderately increased septal wall thickness. Mildly increased posterior wall thickness. Normal left ventricular systolic function with no obvious regional wall motion abnormalities. Left ventricular cavity size normal. Right Ventricle Normal right ventricular size and function. Mild pulmonary hypertension. Right Atrium Mild right atrial dilatation. Left Atrium Mildly increased left atrial diameter. Mitral Valve Structurally normal mitral valve. Mild mitral regurgitation. No mitral stenosis. Aortic Valve Moderate aortic stenosis with a peak gradient of 36mmHg and a mean gradient of 23 mmHg. Mild aortic regurgitation. Trileaflet aortic valve. Tricuspid Valve Structurally normal tricuspid valve. Mild tricuspid regurgitation. No tricuspid stenosis. Pulmonic Valve Structurally normal pulmonic valve. Trace pulmonic regurgitation. No pulmonic stenosis. Pericardium No pericardial or pleural effusion. Echo free space anterior to the right ventricle likely represents a fat pad. Aorta Normal size aortic root and proximal ascending aorta. CONCLUSIONS Normal LV size and systolic function. There is moderate aortic stenosis with a mean gradient of 24 mmHg. There is also mild mitral and tricuspid regurgitation noted. Mild pulmonary hypertension no pericardial effusion probable fat pad Previewed by: Dr. Rayo Lozano MD (Electronically Signed) Final Date: 03 October 2024 11:17
[2024-10-03] MEDS: IPRATROPIUM-ALBUTEROL 3 ML NEB INHALATION PRN (11:49)
--- NOTE | 2024-10-03 12:27 | P.PN ---
Subjective Progress Note Date: 10/03/24 68-year-old female with PMH of CAD status post stenting to mid RCA, paroxysmal AFib on AC with Xarelto, YASIR CPAP dependent nightly, HTN, HLD, and GERD. She presented to the hospital on 10/01/2024 with a chief complaint of shortness of breath. Upon arrival to our facility, patient underwent evaluation. Vital signs upon arrival showed BP 151/74, HR 71, RR 15, T 99.2 F, and SpO2 4% on room air. Labs completed and reviewed. CBC showing leukocytosis with WBC count of 12.9. Coagulation profile showing elevated INR 1.2 and normal 0.50. BMP showing hypokalemia with potassium of 3.4 and mild prerenal azotemia with BUN of 28. Blood glucose 138. Lactic acid 1.5. Liver profile unremarkable. Troponin 0.014 with proBNP 377. Patient admitted under our services with consultation to cardiology. Troponins trended overnight, remained negative but uptrending at 0.014, 0.020, 0.024. BLE Venous Dopplers negative for DVT. Initial EKG showing sinus mechanism with sinus arrhythmia at 75 bpm with nonspecific T wave abnormality in lateral leads. Repeat EKG showing atrial fibrillation with a controlled ventricular rate of 74 bpm with nonspecific T wave abnormalities in lateral leads. Overnight patient was hypoxic requiring non rebreather. CXR showing concerns for RUL PNA. 10/03 Patient was seen and examined. 94% on 15L non rebreather. CBC and BMP significant for WBC 15.5, K 3.2, glu 129. Mag 2. ABG pH 7.51, pCO2 36, pO2 48 on FiO2 45%. D-Dimer 0.81. General: non toxic, no distress, appears at stated age Derm: warm, dry Head: atraumatic, normocephalic, symmetric Mouth: no lip lesion, mucus membranes moist Cardiovascular: S1S2 reg, no murmur Lungs: Decreased BS BL, no rales , no accessory muscle use Ext: no gross muscle atrophy, 1+ BL LE edema, no contractures, venous stasis changes BL LE Neuro: no focal neuro deficits Psych: Alert and oriented. Based on my assessment of this patient, this patient meets a high complexity level of care. Mild acute on chronic diastolic heart failure exacerbation: Continue Lasix 40 mg IV BID. Strict intake and outtake. Daily weights. Echo is pending. Cardiology on board. Sepsis and Acute hypoxic respiratory failure with concerns of PNA on CXR: Start Rocephin 2g IV QD and Azithromycin 500 mg PO QD. Obtain Sputum Cx, Legionella Ag. Obtain Pro-rosalie. Telemetry monitoring. Hypokalemia: 40 meq PO KCl x 1. Elevated D-Dimer: wnl when age adjusted. LE duplex neg for DVT. Less likely given patient is already on Xarelto. Paroxysmal atrial fibrillation: Xarelto 20 mg PO QD. Metoprolol 50 mg PO QHS. History of CAD status post stenting: Lipitor 40 mg PO QD. Beta radha as above. Aortic stenosis Hypertension: Metoprolol as above. Losartan 100 mg PO QD. Hyperlipidemia: Lipitor as above. Venous stasis dermatitis Obstructive sleep apnea CODE STATUS: FULL CODE. DVT Prophylaxis: Xarelto GI Prophylaxis: Designated medical POA if patient is not able to make medical decisions for themselves: I have reviewed the following dairy feed sales consultant notes: Cardio note I have reviewed the results of the following tests: As above I have ordered the following tests: As above I have discussed the care of this patient with the following independent historian: Family at bedside. I have independently interpreted the following test below: CXR I have discussed the management of this patient with the following physician: Objective - Vital Signs Vital signs: Vital Signs Temp 98.7 F 10/03/24 01:55 Pulse 62 10/03/24 07:00 Resp 19 10/03/24 07:00 BP 169/75 10/03/24 07:00 Pulse Ox 94 L 10/03/24 07:00 FiO2 100 10/03/24 03:20 Intake & Output 10/02/24 10/03/24 10/03/24 18:59 06:59 18:59 Output Total 800 Balance -800 Weight 136.078 kg Output: Urine 800 Other: # Voids 5 - Labs CBC & Chem 7: 10/03/24 03:34 10/03/24 03:34 Labs: Abnormal Lab Results - Last 24 Hours (Table) 10/03/24 10/03/24 10/03/24 Range/Units 03:09 03:34 03:34 WBC 15.5 H (3.8-10.6) k/uL D-Dimer (<0.60) mg/L FEU ABG pH 7.51 H (7.35-7.45) ABG pO2 48 L* (83-108) mmHg ABG HCO3 29 H (21-25) mmol/L ABG Total CO2 30 H (19-24) mmol/L ABG O2 Saturation 87.0 L (94-97) % Potassium 3.2 L (3.5-5.1) mmol/L Glucose 129 H (74-99) mg/dL 10/03/24 Range/Units 03:34 WBC (3.8-10.6) k/uL D-Dimer 0.81 H (<0.60) mg/L FEU ABG pH (7.35-7.45) ABG pO2 (83-108) mmHg ABG HCO3 (21-25) mmol/L ABG Total CO2 (19-24) mmol/L ABG O2 Saturation (94-97) % Potassium (3.5-5.1) mmol/L Glucose (74-99) mg/dL
--- NOTE | 2024-10-03 12:53 | CT ---
EXAMINATION TYPE: CT angio chest DATE OF EXAM: 10/03/2024 12:47 PM COMPARISON: None. CLINICAL INDICATION: Female, 68 years old with history of Hypoxemia, elevated d dimer, Hypoxemia, joyce vated d dimer, TECHNIQUE: Axial CT was performed with sagittal and coronal reformats. 3D reconstruction and/or MIP imaging was also performed on a separate workstation. IV CONTRAST: with IV Contrast, patient injected with 100ml mL of Isovue 370. (None if empty) CT DLP: 1253.8 mGycm, Automated exposure control for dose reduction was used. FINDINGS: PULMONARY ARTERIES: The pulmonary arteries and their major tributaries are patent. I do not see alla dence for sizable filling defect to suggest pulmonary embolic process. LUNGS: Patchy infiltrate throughout the right upper and right lower lobes with sparing of the right m iddle lobe. There is also bilateral groundglass infiltrates seen. Small bilateral effusions noted. MEDIASTINUM: Thoracic aorta is of normal caliber. No evidence for mediastinal mass. No mediastinal lymph nodes greater than 1cm. HEART: Size within normal limits. No significant coronary artery calcifications. HILAR STRUCTURES: No evidence for mass. No hilar lymph nodes greater than 1 cm. UPPER ABDOMEN: No significant abnormality is seen. IMPRESSION: 1. No evidence for Pulmonary embolism at this time. 2. Findings felt to reflect pneumonia. [facility], , 10/03/2024 12:51 PM
--- NOTE | 2024-10-03 12:54 | P.CNPUL ---
History of Present Illness Consult date: 10/03/24 Requesting physician: Stone Klein Reason for consult: dyspnea, pneumonia Chief complaint: Shortness of breath History of present illness: This is a 68-year-old female known history of coronary artery disease, previous PCI and stent placement, history of chronic paroxysmal atrial fibrillation, maintained on Xarelto, known history of hypertension dyslipidemia and obstructive sleep apnea, on CPAP, known history of obesity, patient was brought in yesterday to the ER mostly with few days history of increased shortness of breath, no cough, no fever, but positive chills, patient denied any chest pain, no orthopnea, no PND, patient was on 2 L nasal cannula and her O2 saturation was noted to be 92% on 2 L. Patient was admitted with impression of possible congestive heart failure and she was seen by cardiology in consultation, however overnight her pulmonary condition became worse, patient is now on a nonrebreather mask, O2 saturation is in the low 90s and spite of receiving Lasix 80 mg IV push every 12 hours. Chest x-ray showed evidence of right upper lobe pneumonia, EKG showed nonacute ischemic changes but the patient is in atrial fibrillation with controlled rate of 74. Venous Doppler of the lower extremities was negative for DVT, patient had venous Doppler done because of few days history of increased swelling and fluid retention in her lower extremities. Patient was also noted to have a bit of leukocytosis with WC count of 12.9, her hemoglobin was 12.1, renal profile was normal. BNP level was normal. After evaluating the patient, I recommended a transfer of the patient to [facility] recommended a CT angiogram of the chest, in the meantime I recommended antibiotics empirically for presumptive acute community-acquired right upper lobe pneumonia. In the meantime the patient will remain on a nonrebreather mask, and will remain on diuretics as ordered by cardiology. Echocardiogram on this patient today showed good LV function, however the patient was found to have moderate severe aortic stenosis with mean gradient of 24, and there was evidence of mild pulmonary hypertension. With mild tricuspid and mild mitral valve regurgitation. Review of Systems REVIEW OF SYSTEMS: CONSTITUTIONAL: No fever but she had chills, no weight loss. EYES: Negative. ENT: Negative. CARDIAC: As noted in HPI PULMONARY: As noted in HPI GI: Negative. GENITOURINARY: Negative. MUSCULOSKELETAL: Negative. SKIN: Negative. NEUROPSYCH: Negative. ENDOCRINE: Negative. HEMATOLOGIC: Negative. Past Medical History Past Medical History: Atrial Fibrillation, GERD/Reflux, Hyperlipidemia, Hypertension Additional Past Medical History / Comment(s): LE EDEMA History of Any Multi-Drug Resistant Organisms: None Reported Past Surgical History: Appendectomy, Cholecystectomy, Hernia Repair, Hysterectomy Past Anesthesia/Blood Transfusion Reactions: No Reported Reaction Past Psychological History: Depression Smoking Status: Former smoker Past Alcohol Use History: None Reported Past Drug Use History: None Reported - Past Family History Mother Family Medical History: No Reported History Father Family Medical History: Myocardial Infarction ([place]) Medications and Allergies Home Medications Medication Instructions Recorded Confirmed Type Furosemide [Lasix] 20 mg PO BID 11/14/17 10/02/24 History Metoprolol Tartrate [Lopressor] 50 mg PO HS 11/14/17 10/02/24 History Sertraline [Zoloft] 100 mg PO QAM 11/14/17 10/02/24 History Losartan Potassium [Cozaar] 100 mg PO QAM 03/20/21 10/02/24 History Montelukast Sodium [Singulair] 10 mg PO QAM 03/20/21 10/02/24 History Potassium Chloride ER [K-Dur 10] 20 meq PO QAM 03/20/21 10/02/24 History amLODIPine [Norvasc] 10 mg PO QAM 03/20/21 10/02/24 History buPROPion XL [Wellbutrin XL] 150 mg PO QAM 03/20/21 10/02/24 History Rivaroxaban [Xarelto] 20 mg PO W/SUPPER 01/31/23 10/02/24 History Atorvastatin [Lipitor] 40 mg PO DAILY #90 tab 02/03/23 10/02/24 Rx Clopidogrel [Plavix] 75 mg PO DAILY #90 tab 02/03/23 10/02/24 Rx Nitroglycerin Sl Tabs [Nitrostat] 0.4 mg SUBLINGUAL Q5M PRN #25 tab 02/03/23 10/02/24 Rx Ezetimibe [Zetia] 10 mg PO DAILY 10/02/24 10/02/24 History Pantoprazole Sodium [Protonix] 40 mg PO DAILY 10/02/24 10/02/24 History hydrALAZINE HCL 25 mg PO DAILY 10/02/24 10/02/24 History Allergies Allergy/AdvReac Type Severity Reaction Status Date / Time No Known Allergies Allergy Verified 10/02/24 08:56 Physical Exam Vitals: Vital Signs Temp Pulse Pulse Resp BP BP Pulse Ox 10/03/24 12:00 68 18 10/03/24 11:49 67 18 10/03/24 07:00 62 19 169/75 94 L 10/03/24 03:20 10/03/24 01:55 98.7 F 71 19 149/79 88 L 10/02/24 20:00 99.4 F 83 20 133/69 92 L 10/02/24 16:10 98.1 F 78 18 136/82 96 10/02/24 15:36 98.4 F 74 16 131/60 94 L 10/02/24 13:17 72 18 125/66 93 L FiO2 10/03/24 12:00 10/03/24 11:49 10/03/24 07:00 10/03/24 03:20 100 10/03/24 01:55 10/02/24 20:00 10/02/24 16:10 10/02/24 15:36 10/02/24 13:17 Intake and Output 10/02/24 10/03/24 10/03/24 22:59 06:59 14:59 Output Total 800 Balance -800 Output: Urine 800 Other: Voiding Method External Catheter # Voids 1 5 Weight 136.078 kg 136.078 kg Gen: Revealed a 68-year-old white female, obese, on nonrebreather mask, noted to be dyspneic. HEENT: Atraumatic, normocephalic, PERRLA, EOMI, nonicteric. No JVD. NECK: Supple. No neck masses, no JVD, no stridor. LUNGS: Diminished breath sound bilaterally no crackles rhonchi or wheezes HEART: Irregular irregular rhythm, 2/6 systolic murmur over the aortic area. ABDOMEN: Obese, soft No tenderness. No rebound no guarding. EXTREMITIES: No clubbing, no edema, no cyanosis. NEUROLOGICAL: Alert oriented x 3 no gross focal deficit Psychiatric: Normal mood, affect and no mental status examination Skin: No rashes Results - Laboratory Findings CBC and BMP: 10/03/24 03:34 10/03/24 03:34 ABG ABG pH 7.51 (7.35-7.45) H 10/03/24 03:09 ABG pCO2 36 mmHg (35-45) 10/03/24 03:09 ABG pO2 48 mmHg (83-108) L* 10/03/24 03:09 ABG O2 Saturation 87.0 % (94-97) L 10/03/24 03:09 PT/INR, D-dimer PT 12.5 sec (10.0-12.5) 10/01/24 20:33 INR 1.2 (<1.2) H 10/01/24 20:33 D-Dimer 0.81 mg/L FEU (<0.60) H 10/03/24 03:34 Abnormal lab findings: Abnormal Labs 10/01/24 10/01/24 10/01/24 20:33 20:33 20:33 WBC 12.9 H MCHC 30.8 L Neutrophils # 10.0 H INR 1.2 H D-Dimer ABG pH ABG pO2 ABG HCO3 ABG Total CO2 ABG O2 Saturation Potassium 3.4 L BUN 20 H Glucose 138 H Total Protein 10/02/24 10/02/24 10/03/24 04:36 04:36 03:09 WBC 11.8 H MCHC 30.2 L Neutrophils # 8.8 H INR D-Dimer ABG pH 7.51 H ABG pO2 48 L* ABG HCO3 29 H ABG Total CO2 30 H ABG O2 Saturation 87.0 L Potassium 3.0 L BUN Glucose 126 H Total Protein 6.2 L 10/03/24 10/03/24 10/03/24 03:34 03:34 03:34 WBC 15.5 H MCHC Neutrophils # INR D-Dimer 0.81 H ABG pH ABG pO2 ABG HCO3 ABG Total CO2 ABG O2 Saturation Potassium 3.2 L BUN Glucose 129 H Total Protein - Diagnostic Findings Chest x-ray: image reviewed (Chest x-ray is suspicious for right upper lobe pneumonia) Assessment and Plan Assessment: Impression: Acute hypoxic respiratory failure Acute community-acquired right upper lobe pneumonia Doubt congestive heart failure Moderate-severe aortic stenosis Paroxysmal atrial fibrillation Dyslipidemia History of coronary arteriosclerosis and previous PCI Benign essential hypertension Obstructive sleep apnea syndrome Recommendation: Continue oxygen and titrate accordingly Antibiotics for acute community-acquired pneumonia CT angiogram of the chest rule out thromboembolic disease although the patient is on Xarelto however her D-dimer has gone up since admission Cut down on diuretics Transfer patient to a monitored bed and selective out of observation unit Continue Xarelto Resume home meds including statin, amlodipine, and metoprolol. Discontinue vancomycin Continue Protonix Continue bronchodilators/DuoNeb Will continue to follow Time with Patient: Greater than 30
--- NOTE | 2024-10-03 13:56 | P.PN ---
Subjective Progress Note Date: 10/03/24 Consult reason: congestive heart failure History of present illness: This is a 68-year-old female patient of Dr. Merino with past medical history of CAD status post PCI, paroxysmal atrial fibrillation on Xarelto, hypertension, hyperlipidemia, obstructive sleep apnea on CPAP. We have been asked to evaluate the patient for CHF. Patient presented to the emergency center due to shortness of breath, dyspnea on exertion. Patient denies chest pain. She reports lower extremity edema. Blood pressure 132/45, heart rate 77, pulse ox 92% on 2 L nasal cannula. Patient has been started on IV Lasix 80 mg every 12 hours. Patient has been seen in the emergency center waiting for bed on the observation unit. -EKG: Sinus rhythm with no acute ST-T wave changes. #2 atrial fibrillation 74 bpm -Chest x-ray: Cardiomegaly with mild pulmonary vascular congestion. -Venous duplex bilateral lower extremity negative for DVT. -Laboratory studies: WBC 12.9, hemoglobin 12.1, D-dimer 0.5, potassium 3.0, BUN 15, creatinine 0.76. Troponin negative x 3. proBNP 377. -Home cardiac medications: Amlodipine 10 mg daily, atorvastatin 40 mg daily, Plavix 75 mg daily, Zetia 10 mg daily, Lasix 20 mg twice daily, hydralazine 25 mg daily, losartan 100 mg daily, Lopressor 50 mg at bedtime, Potassium chloride 20 mill equivalents daily, Xarelto 20 mg with supper. -Cardiac catheterization and stent of the mid RCA 02/02/2023 -Echocardiogram performed in the office on 01/20/2023 revealed EF of 50 to 55%, severe left ventricular hypertrophy. Mild aortic regurgitation and mild aortic stenosis. Mild mitral regurgitation. Mild tricuspid regurgitation. PASP 47 mmHg. 10/03 Patient seen and examined on the observation unit. Last evening around 2 in the morning, patient became quite hypoxic and she is now on O2 at 15 L nonrebreather with pulse ox 94%. Heart rate is in the 60s, blood pressure 169/75. CTA of the chest ruled out PE but there was right upper lobe pneumonia. WBC 15.5, D-dimer 0.8, potassium 3.2 and creatinine 0.68. Results of echocardiogram reviewed with the patient. Echocardiogram reveals EF of 60 to 65%, moderate aortic stenosis with mean gradient of 24 mmHg. Also mild mitral and tricuspid regurgitation and mild pulmonary hypertension. No pericardial effusion. Physical examination: Gen: This is a 68-year-old female in no acute distress. VS: reviewed HEENT: Head is atraumatic, normocephalic. Pupils equal, round. Sclerae is anicteric. NECK: Supple. No JVD. LUNGS: Clear to auscultation. No wheezes or rhonchi. No intercostal retractions. HEART: Regular rate and rhythm. Second heart sound is normal. 2/6 systolic murmur. ABDOMEN: Soft No tenderness. EXTREMITIES: No edema. No calf tenderness. NEUROLOGICAL: Patient is awake, alert and oriented x3. Assessment: Mild acute on chronic diastolic heart failure History of CAD status post PCI Paroxysmal atrial fibrillation on Xarelto Moderate aortic stenosis Hypertension Hyperlipidemia Obstructive sleep apnea on CPAP Plan: Continue patient's home cardiac medications Continue IV Lasix to 40 mg every 12 hours Monitor SHERRY, daily weights, electrolytes and renal function No further cardiac workup at this time. Hypoxia most likely related to pneumonia as well as moderate AAS and obstructive sleep apnea. Coronary artery disease is currently stable Cardiology will sign off this case and follow on an as-needed basis. Please reconsult for any new concerns. Patient may follow-up in the office in one to [address] Wilber damian. Nurse practitioner note has been reviewed, I agree with documented findings and plan of care. Patient was seen and examined. Objective - Vital Signs Vital signs: Vital Signs Temp 98.7 F 10/03/24 01:55 Pulse 62 10/03/24 07:00 Resp 19 10/03/24 07:00 BP 169/75 10/03/24 07:00 Pulse Ox 94 L 10/03/24 07:00 FiO2 100 10/03/24 03:20 Intake & Output 10/02/24 10/03/24 10/03/24 18:59 06:59 18:59 Output Total 800 Balance -800 Weight 136.078 kg 136.078 kg Output: Urine 800 Other: Voiding Method External Catheter # Voids 5 - Labs CBC & Chem 7: 10/03/24 03:34 10/03/24 03:34 Labs: Abnormal Lab Results - Last 24 Hours (Table) 10/03/24 10/03/24 10/03/24 Range/Units 03:09 03:34 03:34 WBC 15.5 H (3.8-10.6) k/uL D-Dimer (<0.60) mg/L FEU ABG pH 7.51 H (7.35-7.45) ABG pO2 48 L* (83-108) mmHg ABG HCO3 29 H (21-25) mmol/L ABG Total CO2 30 H (19-24) mmol/L ABG O2 Saturation 87.0 L (94-97) % Potassium 3.2 L (3.5-5.1) mmol/L Glucose 129 H (74-99) mg/dL / Range/Units 03:34 WBC (3.8-10.6) k/uL D-Dimer 0.81 H (<0.60) mg/L FEU ABG pH (7.35-7.45) ABG pO2 (83-108) mmHg ABG HCO3 (21-25) mmol/L ABG Total CO2 (19-24) mmol/L ABG O2 Saturation (94-97) % Potassium (3.5-5.1) mmol/L Glucose (74-99) mg/dL
[2024-10-04] MEDS: MELATONIN 5 MG TABLET PO PRN (01:01)
[2024-10-04 07:29] LABS: African American GFR (CKD) >90 (>60 ml/min/1.73 sqM); Anion Gap 6 mmol/L; Blood Urea Nitrogen 13 mg/dL (7-17); Calcium 8.6 mg/dL (8.4-10.2); Carbon Dioxide 33 mmol/L (22-30); Chloride 99 mmol/L (98-107); Glucose 147 mg/dL (74-99); Non-African American GFR(CKD) 85 (>60 ml/min/1.73 sqM); Potassium 3.2 mmol/L (3.5-5.1); Sodium 138 mmol/L (137-145)
[2024-10-04] MEDS: POTASSIUM CHLORIDE ER 20 MEQ TAB.ER PO STA (11:20)
--- NOTE | 2024-10-04 13:30 | P.PN ---
Subjective Progress Note Date: 10/04/24 68-year-old female with PMH of CAD status post stenting to mid RCA, paroxysmal AFib on AC with Xarelto, YASIR CPAP dependent nightly, HTN, HLD, and GERD. She presented to the hospital on 10/01/2024 with a chief complaint of shortness of breath. Upon arrival to our facility, patient underwent evaluation. Vital signs upon arrival showed BP 151/74, HR 71, RR 15, T 99.2 F, and SpO2 4% on room air. Labs completed and reviewed. CBC showing leukocytosis with WBC count of 12.9. Coagulation profile showing elevated INR 1.2 and normal 0.50. BMP showing hypokalemia with potassium of 3.4 and mild prerenal azotemia with BUN of 28. Blood glucose 138. Lactic acid 1.5. Liver profile unremarkable. Troponin 0.014 with proBNP 377. Patient admitted under our services with consultation to cardiology. Troponins trended overnight, remained negative but uptrending at 0.014, 0.020, 0.024. BLE Venous Dopplers negative for DVT. Initial EKG showing sinus mechanism with sinus arrhythmia at 75 bpm with nonspecific T wave abnormality in lateral leads. Repeat EKG showing atrial fibrillation with a controlled ventricular rate of 74 bpm with nonspecific T wave abnormalities in lateral leads. Overnight patient was hypoxic requiring non rebreather. CXR showing concerns for RUL PNA. 10/03 Patient was seen and examined. 94% on 15L non rebreather. CBC and BMP significant for WBC 15.5, K 3.2, glu 129. Mag 2. ABG pH 7.51, pCO2 36, pO2 48 on FiO2 45%. D-Dimer 0.81. 10/04 Patient was seen and examined. 95% on 10L HFNC. CTA chest showed no PE, patchy infiltrates RU and RLL consistent with PNA. Procal 0.07. Echo EF 60-65% moderate LV thickness, mild MR/TR. BMP significant for K 3.2, bicarb 33, glu 147. General: non toxic, no distress, appears at stated age Derm: warm, dry Head: atraumatic, normocephalic, symmetric Mouth: no lip lesion, mucus membranes moist Cardiovascular: S1S2 reg, no murmur Lungs: Decreased BS BL, no rales , no accessory muscle use Ext: no gross muscle atrophy, 1+ BL LE edema, no contractures, venous stasis changes BL LE Neuro: no focal neuro deficits Psych: Alert and oriented. Based on my assessment of this patient, this patient meets a high complexity level of care. Mild acute on chronic diastolic heart failure exacerbation: Continue Lasix 40 mg IV BID. Strict intake and outtake. Daily weights. Echo as above. Cardiology on board. Sepsis and Acute hypoxic respiratory failure due to PNA: Continue Rocephin 2g IV QD and Azithromycin 500 mg PO QD. DuoNeb QID PRN SOB/wheezing. Obtain Sputum Cx, Legionella Ag. Pro-rosalie 0.07. Telemetry monitoring. Pulmonary on board. Hypokalemia: 40 meq PO KCl x 1. KCl 20 meq PO QD. Repeat in the AM. Elevated D-Dimer: wnl when age adjusted. LE duplex neg for DVT. Less likely given patient is already on Xarelto. CTA chest neg for PE. Paroxysmal atrial fibrillation: Xarelto 20 mg PO QD. Metoprolol 50 mg PO QHS. History of CAD status post stenting: Lipitor 40 mg PO QD. Plavix 75 mg PO QD. Beta radha as above. Aortic stenosis Hypertension: Metoprolol as above. Losartan 100 mg PO QD. Hydralazine 25 mg PO QD. Hyperlipidemia: Lipitor as above. Zetia 10 mg PO QD. Depression: Bupropion 150 mg PO QAM. Sertraline 100 mg PO QAM. Venous stasis dermatitis Obstructive sleep apnea CODE STATUS: FULL CODE. DVT Prophylaxis: Xarelto GI Prophylaxis: Designated medical POA if patient is not able to make medical decisions for themselves: I have reviewed the following safety and health consultant notes: Cardio, Pulmonary note I have reviewed the results of the following tests: As above I have ordered the following tests: As above I have discussed the care of this patient with the following independent historian: BIENVENIDO. I have independently interpreted the following test below: I have discussed the management of this patient with the following physician: Objective - Vital Signs Vital signs: Vital Signs Temp 97.9 F 10/04/24 09:00 Pulse 55 L 10/04/24 11:26 Resp 18 10/04/24 11:26 BP 142/70 10/04/24 11:26 Pulse Ox 95 10/04/24 11:26 FiO2 60 10/03/24 16:08 Intake & Output 10/03/24 10/04/24 10/04/24 18:59 06:59 18:59 Intake Total 10 237 10 Output Total 750 1150 800 Balance -740 -913 -790 Weight 136.078 kg 135.2 kg Intake: IV 10 10 Invasive Line 1 10 10 Oral 237 Output: Urine 750 550 800 Urine/Stool Mix 600 Other: Voiding Method Bedside Commode Bedside Commode Bedside Commode # Voids 1 - Labs CBC & Chem 7: 10/03/24 03:34 10/04/24 06:16 Labs: Abnormal Lab Results - Last 24 Hours (Table) 10/04/24 Range/Units 06:16 Potassium 3.2 L (3.5-5.1) mmol/L Carbon Dioxide 33 H (22-30) mmol/L Glucose 147 H (74-99) mg/dL
--- NOTE | 2024-10-04 14:28 | P.PN ---
Subjective Progress Note Date: 10/04/24 This is a 68-year-old female known history of coronary artery disease, previous PCI and stent placement, history of chronic paroxysmal atrial fibrillation, maintained on Xarelto, known history of hypertension dyslipidemia and obstructive sleep apnea, on CPAP, known history of obesity, patient was brought in yesterday to the ER mostly with few days history of increased shortness of breath, no cough, no fever, but positive chills, patient denied any chest pain, no orthopnea, no PND, patient was on 2 L nasal cannula and her O2 saturation was noted to be 92% on 2 L. Patient was admitted with impression of possible congestive heart failure and she was seen by cardiology in consultation, however overnight her pulmonary condition became worse, patient is now on a nonrebreather mask, O2 saturation is in the low 90s and spite of receiving Lasix 80 mg IV push every 12 hours. Chest x-ray showed evidence of right upper lobe pneumonia, EKG showed nonacute ischemic changes but the patient is in atrial f ibrillation with controlled rate of 74. Venous Doppler of the lower extremities was negative for DVT, patient had venous Doppler done because of few days history of increased swelling and fluid retention in her lower extremities. Patient was also noted to have a bit of leukocytosis with WC count of 12.9, her hemoglobin was 12.1, renal profile was normal. BNP level was normal. After evaluating the patient, I recommended a transfer of the patient to [facility] recommended a CT angiogram of the chest, in the meantime I recommended antibiotics empirically for presumptive acute community-acquired right upper lobe pneumonia. In the meantime the patient will remain on a nonrebreather mask, and will remain on diuretics as ordered by cardiology. Echocardiogram on this patient today showed good LV function, however the patient was found to have moderate severe aortic stenosis with mean gradient of 24, and there was evidence of mild pulmonary hypertension. With mild tricuspid and mild mitral va lve regurgitation. The patient is seen today October 04, 2024 in follow-up on the selective care unit . She is currently resting in bed. Awake and alert in no acute distress. He is requiring 10 L high flow nasal cannula to maintain O2 saturation in the mid 90s. She has been afebrile. Hemodynamically stable. CT angiogram revealed no evidence of pulmonary embolism. Lungs with patchy infiltrates throughout the right upper and right lower lobes with sparing of the right middle lobe. There is also bilateral groundglass infiltrates and small bilateral effusions. White count 15.5. Hemoglobin 12.5. Platelets 266. Sodium 138. Potassium 3.2. Bicarb 33. BUN 13. Creatinine 0.73. Glucose 147. Procalcitonin was negative at 0.07. Remains on bronchodilators and Singulair. Anticoagulated with Xarelto. Objective - Vital Signs Vital signs: Vital Signs Temp 97.9 F 10/04/24 09:00 Pulse 55 L 10/04/24 14:00 Resp 18 10/04/24 14:00 BP 142/70 10/04/24 11:26 Pulse Ox 95 10/04/24 11:26 FiO2 60 10/03/24 16:08 Intake & Output 10/03/24 10/04/24 10/04/24 18:59 06:59 18:59 Intake Total 10 237 20 Output Total 750 1150 800 Balance -130 -603 -780 Weight 136.078 kg 135.2 kg Intake: IV 10 20 Invasive Line 1 10 20 Oral 237 Output: Urine 750 550 800 Urine/Stool Mix 600 Other: Voiding Method Bedside Commode Bedside Commode Bedside Commode # Voids 1 - Exam GENERAL EXAM: Alert, pleasant, morbidly obese 68-year-old female, on 10 L high flow nasal cannula, comfortable in no apparent distress. HEAD: Normocephalic. EYES: Normal reaction of pupils, equal size. NOSE: Clear with pink turbinates. THROAT: No erythema or exudates. NECK: No masses, no JVD. CHEST: No chest wall deformity. LUNGS: Equal air entry with bilateral rhonchi. CVS: S1 and S2 normal with no audible murmur, regular rhythm. ABDOMEN: No hepatosplenomegaly, normal bowel sounds, no guarding or rigidity. SPINE: No scoliosis or deformity SKIN: No rashes CENTRAL NERVOUS SYSTEM: No focal deficits, tone is normal in all 4 extremities. EXTREMITIES: There is 1+ peripheral edema. No clubbing, no cyanosis. Peripheral pulses are intact. - Labs CBC & Chem 7: 10/03/24 03:34 10/04/24 06:16 Labs: Abnormal Lab Results - Last 24 Hours (Table) 10/04/24 Range/Units 06:16 Potassium 3.2 L (3.5-5.1) mmol/L Carbon Dioxide 33 H (22-30) mmol/L Glucose 147 H (74-99) mg/dL Assessment and Plan Assessment: Acute hypoxic respiratory failure secondary to acute community-acquired right upper lobe pneumonia Acute exacerbation of diastolic congestive heart failure Moderate aortic stenosis Paroxysmal atrial fibrillation anticoagulated with Xarelto Dyslipidemia History of coronary arteriosclerosis and previous PCI Benign essential hypertension Obstructive sleep apnea syndrome Plan: The patient was seen and evaluated Labs and medications reviewed CT angiogram ruled out pulmonary embolism Continue ceftriaxone and azithromycin Continue bronchodilators, Singulair Continue IV diuretics Titrate down the FiO2 as tolerated Increase her activity as tolerated Plan of care discussed with the patient and her We will continue to follow I have personally seen and examined the patient, performed the documentation and the assessment and plan as written. Number of minutes spent on the visit: 10 Dictation was produced using [employer] dictation software. Please excuse any grammatical, word or spelling errors.
[2024-10-04] MEDS: IPRATROPIUM-ALBUTEROL 3 ML NEB INHALATION SCH (15:44)
[2024-10-05] MEDS: PANTOPRAZOLE 40 MG TABLET PO SCH (05:43)
[2024-10-05] MEDS: ACETAMINOPHEN TAB 325 MG TAB PO PRN (05:43)
[2024-10-05] MEDS: buPROPion XL 150 MG TAB.ER.24H PO SCH (09:21)
[2024-10-05] MEDS: SERTRALINE 100 MG TAB PO SCH (09:21)
[2024-10-05] MEDS: POTASSIUM CHLORIDE ER 10 MEQ TAB.ER.PRT PO SCH (09:21)
[2024-10-05] MEDS: EZETIMIBE 10 MG TAB PO SCH (09:21)
[2024-10-05] MEDS: hydrALAZINE HCL 25 MG TAB PO SCH (09:21)
--- NOTE | 2024-10-05 15:34 | P.PN ---
Subjective Progress Note Date: 10/05/24 This is a 68-year-old female known history of coronary artery disease, previous PCI and stent placement, history of chronic paroxysmal atrial fibrillation, maintained on Xarelto, known history of hypertension dyslipidemia and obstructive sleep apnea, on CPAP, known history of obesity, patient was brought in yesterday to the ER mostly with few days history of increased shortness of breath, no cough, no fever, but positive chills, patient denied any chest pain, no orthopnea, no PND, patient was on 2 L nasal cannula and her O2 saturation was noted to be 92% on 2 L. Patient was admitted with impression of possible congestive heart failure and she was seen by cardiology in consultation, however overnight her pulmonary condition became worse, patient is now on a nonrebreather mask, O2 saturation is in the low 90s and spite of receiving Lasix 80 mg IV push every 12 hours. Chest x-ray showed evidence of right upper lobe pneumonia, EKG showed nonacute ischemic changes but the patient is in atrial f ibrillation with controlled rate of 74. Venous Doppler of the lower extremities was negative for DVT, patient had venous Doppler done because of few days history of increased swelling and fluid retention in her lower extremities. Patient was also noted to have a bit of leukocytosis with WC count of 12.9, her hemoglobin was 12.1, renal profile was normal. BNP level was normal. After evaluating the patient, I recommended a transfer of the patient to [facility] recommended a CT angiogram of the chest, in the meantime I recommended antibiotics empirically for presumptive acute community-acquired right upper lobe pneumonia. In the meantime the patient will remain on a nonrebreather mask, and will remain on diuretics as ordered by cardiology. Echocardiogram on this patient today showed good LV function, however the patient was found to have moderate severe aortic stenosis with mean gradient of 24, and there was evidence of mild pulmonary hypertension. With mild tricuspid and mild mitral va lve regurgitation. The patient is seen today October 04, 2024 in follow-up on the selective care unit . She is currently resting in bed. Awake and alert in no acute distress. He is requiring 10 L high flow nasal cannula to maintain O2 saturation in the mid 90s. She has been afebrile. Hemodynamically stable. CT angiogram revealed no evidence of pulmonary embolism. Lungs with patchy infiltrates throughout the right upper and right lower lobes with sparing of the right middle lobe. There is also bilateral groundglass infiltrates and small bilateral effusions. White count 15.5. Hemoglobin 12.5. Platelets 266. Sodium 138. Potassium 3.2. Bicarb 33. BUN 13. Creatinine 0.73. Glucose 147. Procalcitonin was negative at 0.07. Remains on bronchodilators and Singulair. Anticoagulated with Xarelto. The patient is seen today October 05, 2024 in follow-up on the selective care unit. She is currently up at a chair. Awake and alert in no acute distress. Maintaining O2 saturations in the 90s on 3 L/min per nasal cannula. She has been afebrile. Hemodynamically stable. No new labs today. She remains on ceftriaxone. Anticoagulated with Xarelto. Continued on bronchodilators. Co ntinued on IV diuretics. Currently in a -2 L balance. Objective - Vital Signs Vital signs: Vital Signs Temp 97.8 F 10/05/24 11:14 Pulse 64 10/05/24 12:33 Resp 18 10/05/24 11:14 BP 120/65 10/05/24 11:14 Pulse Ox 97 10/05/24 12:12 FiO2 60 10/03/24 16:08 Intake & Output 10/04/24 10/05/24 10/05/24 18:59 06:59 18:59 Intake Total 260 410 Output Total 1650 700 300 Balance -1390 -700 110 Weight 134.9 kg Intake: IV 20 Invasive Line 1 20 Intake, IV Titration 50 Amount cefTRIAXone 2 gm In 50 Sodium Chloride 0.9% 50 ml @ 100 mls/hr IVPB Q24HR [facility] Rx#:[id number] Oral 240 360 Output: Urine 1650 700 300 Other: Voiding Method Bedside Commode Bedside Commode Bedside Commode # Voids 1 - Exam GENERAL EXAM: Alert, morbidly obese 68-year-old female, on 3 L nasal cannula, comfortable in no apparent distress. HEAD: Normocephalic. EYES: Normal reaction of pupils, equal size. NOSE: Clear with pink turbinates. THROAT: No erythema or exudates. NECK: No masses, no JVD. CHEST: No chest wall deformity. LUNGS: Equal air entry with bilateral rhonchi. CVS: S1 and S2 normal with no audible murmur, regular rhythm. ABDOMEN: No hepatosplenomegaly, normal bowel sounds, no guarding or rigidity. SPINE: No scoliosis or deformity SKIN: No rashes CENTRAL NERVOUS SYSTEM: No focal deficits, tone is normal in all 4 extremities. EXTREMITIES: There is 1+ peripheral edema. No clubbing, no cyanosis. Peripheral pulses are intact. - Labs CBC & Chem 7: 10/03/24 03:34 10/04/24 06:16 Assessment and Plan Assessment: Acute hypoxic respiratory failure secondary to acute community-acquired right upper lobe pneumonia Acute exacerbation of diastolic congestive heart failure Moderate aortic stenosis Paroxysmal atrial fibrillation anticoagulated with Xarelto Dyslipidemia History of coronary arteriosclerosis and previous PCI Benign essential hypertension Obstructive sleep apnea syndrome Plan: The patient was seen and evaluated Labs and medications reviewed Continue ceftriaxone Completed azithromycin Continue bronchodilators, Singulair Continue IV diuretics Titrate down the FiO2 as tolerated Increase her activity as tolerated We will continue to follow I have personally seen and examined the patient, performed the documentation and the assessment and plan as written. Number of minutes spent on the visit: 10 Dictation was produced using [employer] dictation software. Please excuse any grammatical, word or spelling errors.
--- NOTE | 2024-10-05 17:30 | P.PN ---
Subjective Progress Note Date: 10/05/24 Hospital Course: The patient is a 68-year-old female with PMH of CAD status post stenting to mid RCA, paroxysmal AFib on AC with Xarelto, YASIR CPAP dependent nightly, HTN, HLD, and GERD. She presented to the hospital on 10/01/2024 with a chief complaint of shortness of breath. Upon arrival to our facility, patient underwent evaluation. Vital signs upon arrival showed BP 151/74, HR 71, RR 15, T 99.2 F, and SpO2 4% on room air. Labs completed and reviewed. CBC showing leukocytosis with WBC count of 12.9. Coagulation profile showing elevated INR 1.2 and normal 0.50. BMP showing hypokalemia with potassium of 3.4 and mild prerenal azotemia with BUN of 28. Blood glucose 138. Lactic acid 1.5. Liver profile unremarkable. Troponin 0.014 with proBNP 377. Patient admitted under our services with consultation to cardiology. Troponins trended overnight, remained negative but uptrending at 0.014, 0.020, 0.024. BLE Venous Dopplers negative for DVT. Initial EKG showing sinus mechanism with sinus arrhythmia at 75 bpm with nonspecific T wave abnormality in lateral leads. Repeat EKG showing atrial fibrillation with a controlled ventricular rate of 74 bpm with nonspecific T wave abnormalities in lateral leads. Overnight patient was hypoxic requiring non rebreather. CXR showing concerns for RUL PNA. 10/03 Patient was seen and examined. 94% on 15L non rebreather. CBC and BMP significant for WBC 15.5, K 3.2, glu 129. Mag 2. ABG pH 7.51, pCO2 36, pO2 48 on FiO2 45%. D-Dimer 0.81. 10/04 Patient was seen and examined. 95% on 10L HFNC. CTA chest showed no PE, patchy infiltrates RU and RLL consistent with PNA. Procal 0.07. Echo EF 60-65% moderate LV thickness, mild MR/TR. BMP significant for K 3.2, bicarb 33, glu 147. 10/05 Patient seen and examined at bedside. Saturation was 94% on 3L HFNC. I/Os - 1550 ml overnight. Remains on IV Lasix 40 mg BID. Feeling much better, leg swelling is decreasing, patient is less short of breath this morning. No labs this AM. General: non toxic, no distress, appears at stated age. Obese Derm: warm, dry Head: atraumatic, normocephalic, symmetric Mouth: no lip lesion, mucus membranes moist Cardiovascular: S1S2 reg, no murmur, +1 pitting edema in bilateral lower extremities Lungs: Mild bibasilar crackles bilaterally, no rales , no accessory muscle use Ext: no gross muscle atrophy, no contractures, venous stasis changes BL LE Neuro: no focal neuro deficits Psych: Alert and oriented. Based on my assessment of this patient, this patient meets a high complexity level of care. Mild acute on chronic diastolic heart failure exacerbation: Continue Lasix 40 mg IV BID. Strict intake and outtake. Daily weights. Echo as above. Cardiology on board. Sepsis and Acute hypoxic respiratory failure due to PNA: Continue Rocephin 2g IV QD, completed Azithromycin 500 mg PO QD. DuoNeb QID PRN SOB/wheezing, Mucinex. Obtain Sputum Cx, Legionella Ag. Pro-rosalie 0.07. Telemetry monitoring. Pulmonary on board. Hypokalemia: 40 meq PO KCl x 1. KCl 20 meq PO QD given 10/04. No labs done today, will Repeat BMP and replace accordingly. Elevated D-Dimer: wnl when age adjusted. LE duplex neg for DVT. Less likely given patient is already on Xarelto. CTA chest neg for PE. Paroxysmal atrial fibrillation: Xarelto 20 mg PO QD. Metoprolol 50 mg PO QHS. History of CAD status post stenting: Lipitor 40 mg PO QD. Plavix 75 mg PO QD. Beta radha as above. Aortic stenosis Hypertension: Metoprolol as above. Losartan 100 mg PO QD. Hydralazine 25 mg PO QD. Hyperlipidemia: Lipitor as above. Zetia 10 mg PO QD. Depression: Bupropion 150 mg PO QAM. Sertraline 100 mg PO QAM. Venous stasis dermatitis Obstructive sleep apnea CODE STATUS: FULL CODE. DVT Prophylaxis: Xarelto GI Prophylaxis: Designated medical POA if patient is not able to make medical decisions for themselves: I have reviewed the following strategic planning consultant notes: Pulmonary note I have reviewed the results of the following tests: As above I have ordered the following tests: As above I have discussed the care of this patient with the following independent historian: BIENVENIDO. I have independently interpreted the following test below: I have discussed the management of this patient with the following physician: Objective - Vital Signs Vital signs: Vital Signs Temp 97.6 F 10/05/24 16:22 Pulse 64 10/05/24 16:44 Resp 18 10/05/24 16:22 BP 115/52 10/05/24 16:22 Pulse Ox 96 10/05/24 16:22 FiO2 60 10/03/24 16:08 Intake & Output 10/04/24 10/05/24 10/05/24 18:59 06:59 18:59 Intake Total 260 410 Output Total 1650 700 950 Balance -1390 -700 -540 Weight 134.9 kg Intake: IV 20 Invasive Line 1 20 Intake, IV Titration 50 Amount cefTRIAXone 2 gm In 50 Sodium Chloride 0.9% 50 ml @ 100 mls/hr IVPB Q24HR [facility] Rx#:[id number] Oral 240 360 Output: Urine 1650 700 950 Other: Voiding Method Bedside Commode Bedside Commode Bedside Commode # Voids 2 # Bowel Movements 1 - Labs CBC & Chem 7: 10/03/24 03:34 10/04/24 06:16
--- NOTE | 2024-10-05 20:25 | CDI ---
Documentation Clarification Form Date: 10/05/2024 08:00:38 PM From: Cassi Angulo RN, CCDS Phone: [phone] Admit Date: 10/01/2024 11:20:00 PM Patient Name: Rochelle Plummer Visit Number: [id number] Discharge Date: ATTENTION: The Clinical Documentation Specialists (CDI) and [facility] Coding Staff appreciate your assistance in clarifying documentation. Please respond to the clarification below the line at the bottom and electronically sign. The CDI & [facility] Coding staff will review the response and follow-up if needed. Please note: Queries are made part of the Legal Health Record. If you have any questions, please contact the author of this message via ITS. Doctor. Porfirio Carl Sepsis is documented in your progress note starting on 10/03/24 which may lack sufficient clinical evidence/support in the medical record. Additional clarification is requested. History/Risk Factors: paroxysmal AFib, CAD status post stenting to mid RCA, Hyperlipidemia, Hypertension Clinical Indicators: 68-year-old female presented to the hospital on 10/01/2024 with a chief complaint of shortness of breath. Upon arrival showed BP 151/74, HR 71, RR 15, T 99.2 F, and SpO2 4% on RA WBC 12.9 10/01 CXR: Cardiomegaly and mild pulmonary vascular congestion.Correlate with BNP for congestive heart failure. 10/03 VS: (15:56) 186/78 65 18 98.2 92% High Flow 12 L cannula 10/03 Labs: WBC 15.5, K 3.2, glu 129.Mag 2.ABG pH 7.51, pCO2 36, pO2 48 on FiO2 45%.D-Dimer 0.81. 10/03 CXR: Right upper lobe pneumonia. General: non toxic, no distress, appears at stated age Treatment: Yard Rigger/ Telemetry Rocephin 2 GM,IV QD, Azithromycin 500 MG PO QD Please clarify if sepsis is a valid diagnosis? [x ] No, sepsis is ruled out [ ] Yes, sepsis is present as evidence by (additional clinical support): [ ] Other (please specify diagnosis) [ ] /LUnable to determine (Template Last Revised: December 2023) MTDD
[2024-10-06 01:51] LABS: African American GFR (CKD) 74 (>60 ml/min/1.73 sqM); Anion Gap 9 mmol/L; Blood Urea Nitrogen 24 mg/dL (7-17); Calcium 9.8 mg/dL (8.4-10.2); Carbon Dioxide 31 mmol/L (22-30); Chloride 98 mmol/L (98-107); Glucose 126 mg/dL (74-99); Non-African American GFR(CKD) 65 (>60 ml/min/1.73 sqM); Potassium 3.4 mmol/L (3.5-5.1); Sodium 138 mmol/L (137-145)
--- NOTE | 2024-10-06 13:20 | P.PN ---
Subjective Progress Note Date: 10/06/24 This is a 68-year-old female known history of coronary artery disease, previous PCI and stent placement, history of chronic paroxysmal atrial fibrillation, maintained on Xarelto, known history of hypertension dyslipidemia and obstructive sleep apnea, on CPAP, known history of obesity, patient was brought in yesterday to the ER mostly with few days history of increased shortness of breath, no cough, no fever, but positive chills, patient denied any chest pain, no orthopnea, no PND, patient was on 2 L nasal cannula and her O2 saturation was noted to be 92% on 2 L. Patient was admitted with impression of possible congestive heart failure and she was seen by cardiology in consultation, however overnight her pulmonary condition became worse, patient is now on a nonrebreather mask, O2 saturation is in the low 90s and spite of receiving Lasix 80 mg IV push every 12 hours. Chest x-ray showed evidence of right upper lobe pneumonia, EKG showed nonacute ischemic changes but the patient is in atrial f ibrillation with controlled rate of 74. Venous Doppler of the lower extremities was negative for DVT, patient had venous Doppler done because of few days history of increased swelling and fluid retention in her lower extremities. Patient was also noted to have a bit of leukocytosis with WC count of 12.9, her hemoglobin was 12.1, renal profile was normal. BNP level was normal. After evaluating the patient, I recommended a transfer of the patient to [facility] recommended a CT angiogram of the chest, in the meantime I recommended antibiotics empirically for presumptive acute community-acquired right upper lobe pneumonia. In the meantime the patient will remain on a nonrebreather mask, and will remain on diuretics as ordered by cardiology. Echocardiogram on this patient today showed good LV function, however the patient was found to have moderate severe aortic stenosis with mean gradient of 24, and there was evidence of mild pulmonary hypertension. With mild tricuspid and mild mitral va lve regurgitation. The patient is seen today October 04, 2024 in follow-up on the selective care unit . She is currently resting in bed. Awake and alert in no acute distress. He is requiring 10 L high flow nasal cannula to maintain O2 saturation in the mid 90s. She has been afebrile. Hemodynamically stable. CT angiogram revealed no evidence of pulmonary embolism. Lungs with patchy infiltrates throughout the right upper and right lower lobes with sparing of the right middle lobe. There is also bilateral groundglass infiltrates and small bilateral effusions. White count 15.5. Hemoglobin 12.5. Platelets 266. Sodium 138. Potassium 3.2. Bicarb 33. BUN 13. Creatinine 0.73. Glucose 147. Procalcitonin was negative at 0.07. Remains on bronchodilators and Singulair. Anticoagulated with Xarelto. The patient is seen today October 05, 2024 in follow-up on the selective care unit. She is currently up at a chair. Awake and alert in no acute distress. Maintaining O2 saturations in the 90s on 3 L/min per nasal cannula. She has been afebrile. Hemodynamically stable. No new labs today. She remains on ceftriaxone. Anticoagulated with Xarelto. Continued on bronchodilators. Co ntinued on IV diuretics. Currently in a -2 L balance. The patient is seen today October 06, 2024 in follow-up on the selective care unit. She is currently resting in bed. Awake and alert in no acute distress. Maintaining O2 saturations in the 90s on 2 L/min per nasal cannula. She is afebrile. Hemodynamically stable. Sodium 138. Potassium 3.4. Bicarb 31. BUN 24. Creatinine 0.91. Glucose 126. Procalcitonin was negative at 0.07. She remains on DuoNeb inhalations, Singulair. Anticoagulated with Xarelto. Remains on ceftriaxone. Remains on IV diuretics. Currently in a -660 mL balance. Objective - Vital Signs Vital signs: Vital Signs Temp 97.6 F 10/06/24 08:35 Pulse 74 10/06/24 12:01 Resp 18 10/06/24 12:00 BP 99/51 10/06/24 12:00 Pulse Ox 100 10/06/24 12:00 FiO2 60 10/03/24 16:08 Intake & Output 10/05/24 10/06/24 10/06/24 18:59 06:59 18:59 Intake Total 590 500 480 Output Total 950 800 600 Balance -360 -300 -120 Weight 135.7 kg Intake: Intake, IV Titration 50 Amount cefTRIAXone 2 gm In 50 Sodium Chloride 0.9% 50 ml @ 100 mls/hr IVPB Q24HR [facility] Rx#:[id number] Oral 540 500 480 Output: Urine 950 800 600 Other: Voiding Method Bedside Commode Bedside Commode Bedside Commode # Voids 2 # Bowel Movements 1 - Exam GENERAL EXAM: Alert, morbidly obese 68-year-old female, on 2 L nasal cannula, comfortable in no apparent distress. HEAD: Normocephalic. EYES: Normal reaction of pupils, equal size. NOSE: Clear with pink turbinates. THROAT: No erythema or exudates. NECK: No masses, no JVD. CHEST: No chest wall deformity. LUNGS: Equal air entry with bilateral rhonchi. CVS: S1 and S2 normal with no audible murmur, regular rhythm. ABDOMEN: No hepatosplenomegaly, normal bowel sounds, no guarding or rigidity. SPINE: No scoliosis or deformity SKIN: No rashes CENTRAL NERVOUS SYSTEM: No focal deficits, tone is normal in all 4 extremities. EXTREMITIES: There is 1+ peripheral edema. No clubbing, no cyanosis. Peripheral pulses are intact. - Labs CBC & Chem 7: 10/03/24 03:34 10/06/24 00:02 Labs: Abnormal Lab Results - Last 24 Hours (Table) 10/06/24 Range/Units 00:02 Potassium 3.4 L (3.5-5.1) mmol/L Carbon Dioxide 31 H (22-30) mmol/L BUN 24 H (7-17) mg/dL Glucose 126 H (74-99) mg/dL Assessment and Plan Assessment: Acute hypoxic respiratory failure secondary to acute community-acquired right upper lobe pneumonia. Remains on ceftriaxone Acute exacerbation of diastolic congestive heart failure Moderate aortic stenosis Paroxysmal atrial fibrillation anticoagulated with Xarelto Dyslipidemia History of coronary arteriosclerosis and previous PCI Benign essential hypertension Obstructive sleep apnea syndrome Plan: The patient was seen and evaluated Labs and medications reviewed Continue ceftriaxone Completed azithromycin Continue bronchodilators, Singulair Continue diuretics Titrate down the FiO2 as tolerated Increase her activity as tolerated Follow-up chest x-ray in a.m. We will continue to follow I have personally seen and examined the patient, performed the documentation and the assessment and plan as written. Number of minutes spent on the visit: 10 Dictation was produced using [employer] dictation software. Please excuse any grammatical, word or spelling errors.
--- NOTE | 2024-10-06 14:08 | P.PN ---
Subjective Progress Note Date: 10/06/24 68-year-old female with PMH of CAD status post stenting to mid RCA, paroxysmal AFib on AC with Xarelto, YASIR CPAP dependent nightly, HTN, HLD, and GERD. She presented to the hospital on 10/01/2024 with a chief complaint of shortness of breath. Upon arrival to our facility, patient underwent evaluation. Vital signs upon arrival showed BP 151/74, HR 71, RR 15, T 99.2 F, and SpO2 4% on room air. Labs completed and reviewed. CBC showing leukocytosis with WBC count of 12.9. Coagulation profile showing elevated INR 1.2 and normal 0.50. BMP showing hypokalemia with potassium of 3.4 and mild prerenal azotemia with BUN of 28. Blood glucose 138. Lactic acid 1.5. Liver profile unremarkable. Troponin 0.014 with proBNP 377. Patient admitted under our services with consultation to cardiology. Troponins trended overnight, remained negative but uptrending at 0.014, 0.020, 0.024. BLE Venous Dopplers negative for DVT. Initial EKG showing sinus mechanism with sinus arrhythmia at 75 bpm with nonspecific T wave abnormality in lateral leads. Repeat EKG showing atrial fibrillation with a controlled ventricular rate of 74 bpm with nonspecific T wave abnormalities in lateral leads. Echo EF 60-65% moderate LV thickness, mild MR/TR. Cardiology recommended Lasix IV which was switched to PO on 10/06. Cardiology signed off recommending outpatient follow up. Overnight patient was hypoxic requiring non rebreather. CXR showing concerns for RUL PNA. D-Dimer 0.81, CTA chest showed no PE, patchy infiltrates RU and RLL consistent with PNA. She was started on Rocephin and Azithromycin. 10/05 Patient was seen and examined. 97% on 2L NC. Breathing improved per patient. Plans for home O2 eval today. Pulmonary recommends CXR tomorrow and possible discharge home if symptoms continue to improve. BMP significant for K 3.4, bicarb 31, BUN 24, glu 126. General: non toxic, no distress, appears at stated age Derm: warm, dry Head: atraumatic, normocephalic, symmetric Mouth: no lip lesion, mucus membranes moist Cardiovascular: S1S2 reg, no murmur Lungs: Decreased BS BL, no rales , no accessory muscle use Ext: no gross muscle atrophy, no edema, no contractures, venous stasis changes BL LE Neuro: no focal neuro deficits Psych: Alert and oriented. Based on my assessment of this patient, this patient meets a high complexity level of care. Mild acute on chronic diastolic heart failure exacerbation: Lasix switched from 40 mg IV BID to 20 mg PO BID. Strict intake and outtake. Daily weights. Echo as above. Cardiology on board. Sepsis and Acute hypoxic respiratory failure due to PNA: Continue Rocephin 2g IV QD (D4). Completed 3 days of Azithromycin.. DuoNeb QID PRN SOB/wheezing. Obtain Sputum Cx, Legionella Ag. Pro-rosalie 0.07. Telemetry monitoring. Pulmonary on board. Hypokalemia: KCl 20 meq PO QD. Repeat in the AM. Elevated D-Dimer: wnl when age adjusted. LE duplex neg for DVT. Less likely g iven patient is already on Xarelto. CTA chest neg for PE. Paroxysmal atrial fibrillation: Xarelto 20 mg PO QD. Metoprolol 50 mg PO QHS. History of CAD status post stenting: Lipitor 40 mg PO QD. Plavix 75 mg PO QD. Beta radha as above. Aortic stenosis Hypertension: Metoprolol as above. Losartan 100 mg PO QD. Hydralazine 25 mg PO QD. Hyperlipidemia: Lipitor as above. Zetia 10 mg PO QD. Depression: Bupropion 150 mg PO QAM. Sertraline 100 mg PO QAM. Venous stasis dermatitis Obstructive sleep apnea Symptoms improving. Home O2 eval today. CXR tomorrow. Anticipate DC in 1-2 days. CODE STATUS: FULL CODE. DVT Prophylaxis: Xarelto GI Prophylaxis: Designated medical POA if patient is not able to make medical decisions for themselves: I have reviewed the following sales support consultant notes: Pulmonary note I have reviewed the results of the following tests: BMP I have ordered the following tests: BMP, Mag in the AM. I have discussed the care of this patient with the following independent historian: RN. Family at bedside. I have independently interpreted the following test below: I have discussed the management of this patient with the following physician: Objective - Vital Signs Vital signs: Vital Signs Temp 97.6 F 10/06/24 08:35 Pulse 74 10/06/24 12:01 Resp 18 10/06/24 12:00 BP 99/51 10/06/24 12:00 Pulse Ox 95 10/06/24 13:22 FiO2 60 10/03/24 16:08 Intake & Output 10/05/24 10/06/24 10/06/24 18:59 06:59 18:59 Intake Total 590 500 480 Output Total 950 800 600 Balance -360 -300 -120 Weight 135.7 kg Intake: Intake, IV Titration 50 Amount cefTRIAXone 2 gm In 50 Sodium Chloride 0.9% 50 ml @ 100 mls/hr IVPB Q24HR [facility] Rx#:[id number] Oral 540 500 480 Output: Urine 950 800 600 Other: Voiding Method Bedside Commode Bedside Commode Bedside Commode # Voids 2 # Bowel Movements 1 - Labs CBC & Chem 7: 10/03/24 03:34 10/06/24 00:02 Labs: Abnormal Lab Results - Last 24 Hours (Table) 10/06/24 Range/Units 00:02 Potassium 3.4 L (3.5-5.1) mmol/L Carbon Dioxide 31 H (22-30) mmol/L BUN 24 H (7-17) mg/dL Glucose 126 H (74-99) mg/dL
[2024-10-06] MEDS: FUROSEMIDE 20 MG TAB PO SCH (16:40)
[2024-10-06] MEDS: BENZONATATE 100 MG CAP PO PRN (20:53)
--- NOTE | 2024-10-07 06:49 | XR ---
EXAMINATION TYPE: XR chest 1V portable DATE OF EXAM: 10/07/2024 CLINICAL INDICATION: Female, 68 years old with history of CHF, pneumonia, progress study. TECHNIQUE: Single AP portable semiupright view of the chest is obtained. COMPARISON: CTA chest and chest x-ray from 4 days earlier FINDINGS: Marked improvement in right upper lung focal airspace opacity and scattered bilateral opac ities. Persistent cardiomegaly. Osseous structures are intact. IMPRESSION: Marked improvement in bilateral multifocal acute infiltrates and/or edema. No new acute i nfiltrates are evident. [facility], , 10/07/2024 6:47 AM
[2024-10-07 07:50] LABS: African American GFR (CKD) >90 (>60 ml/min/1.73 sqM); Anion Gap 9 mmol/L; Blood Urea Nitrogen 19 mg/dL (7-17); Calcium 9.7 mg/dL (8.4-10.2); Carbon Dioxide 29 mmol/L (22-30); Chloride 101 mmol/L (98-107); Glucose 113 mg/dL (74-99); Magnesium 2.1 mg/dL (1.6-2.3); Non-African American GFR(CKD) 81 (>60 ml/min/1.73 sqM); Potassium 3.6 mmol/L (3.5-5.1); Sodium 139 mmol/L (137-145)
[2024-10-07 10:01] VITALS: TEMP 97.7
--- NOTE | 2024-10-07 10:24 | P.DS ---
Providers Date of admission: 10/01/24 23:20 Expected date of discharge: 10/07/24 Attending physician: Stone Klein MD Consults: 10/01/24 23:16 Consult Physician Routine Consulting Provider: Jean Marie Merino Consult Reason/Comments: CHF Do you want consulting provider notified?: Yes, Notify in am 10/03/24 09:06 Consult Physician Routine Consulting Provider: Kumar Carr Consult Reason/Comments: acute respiratory failure with hypoxia Do you want consulting provider notified?: Yes Primary care physician: [facility] Course: 68-year-old female with PMH of CAD status post stenting to mid RCA, paroxysmal AFib on AC with Xarelto, YASIR CPAP dependent nightly, HTN, HLD, and GERD. She presented to the hospital on 10/01/2024 with a chief complaint of shortness of breath. Upon arrival to our facility, patient underwent evaluation. Vital signs upon arrival showed BP 151/74, HR 71, RR 15, T 99.2 F, and SpO2 4% on room air. Labs completed and reviewed. CBC showing leukocytosis with WBC count of 12.9. Coagulation profile showing elevated INR 1.2 and normal 0.50. BMP showing hypokalemia with potassium of 3.4 and mild prerenal azotemia with BUN of 28. Blood glucose 138. Lactic acid 1.5. Liver profile unremarkable. Troponin 0.014 with proBNP 377. Patient admitted under our services with consultation to cardiology. Troponins trended overnight, remained negative but uptrending at 0.014, 0.020, 0.024. BLE Venous Dopplers negative for DVT. Initial EKG showing sinus mechanism with sinus arrhythmia at 75 bpm with nonspecific T wave abno rmality in lateral leads. Repeat EKG showing atrial fibrillation with a controlled ventricular rate of 74 bpm with nonspecific T wave abnormalities in lateral leads. Echo EF 60-65% moderate LV thickness, mild MR/TR. Cardiology recommended Lasix IV which was switched to PO on 10/06. Cardiology signed off recommending outpatient follow up. Patient was hypoxic requiring non rebreather. CXR showing concerns for RUL PNA. D-Dimer 0.81, CTA chest showed no PE, patchy infiltrates RU and RLL consistent with PNA. She was started on Rocephin and Azithromycin on 10/01. 10/07 Patient was seen and examined. 96% on RA. Breathing improved. Complains of persistent cough. Passed home O2 eval yesterday. CXR done this morning shows marked improvement with no new acute infiltrates. BMP BUN 19, glu 113. Mag 2.1. Discharge Plans: Completed course of Rocephin and Azithromycin for treatment of PNA. Passed home O2 eval. Plans for discharge home on Albuterol INH PRN and Tessalon PRN. Follow up with PCP within 1-2 days of discharge, Dr. Merino within [address] Horowitz within 1 week of discharge. General: non toxic, no distress, appears at stated age Derm: warm, dry Head: atraumatic, normocephalic, symmetric Mouth: no lip lesion, mucus membranes moist Cardiovascular: S1S2 reg, no murmur Lungs: Decreased BS BL, no rales , no accessory muscle use Ext: no gross muscle atrophy, no edema, no contractures, venous stasis changes BL LE Neuro: no focal neuro deficits Psych: Alert and oriented. Discharge Diagnosis: Sepsis and Acute hypoxic respiratory failure due to PNA Mild acute on chronic diastolic heart failure exacerbation Elevated D-Dimer Paroxysmal atrial fibrillation History of CAD status post stenting Aortic stenosis Hypertension Hyperlipidemia Depression Venous stasis dermatitis Obstructive sleep apnea Resolved: Hypokalemia This complex discharge took 35 minutes to complete. Patient Condition at Discharge: Stable Plan - Discharge Summary Discharge Rx Participant: No New Discharge Prescriptions: New Benzonatate [Tessalon Perles] 100 mg PO TID PRN #30 cap PRN Reason: Cough Acetaminophen Tab [Tylenol] 650 mg PO Q6HR PRN tab PRN Reason: Fever And/ Or Pain Albuterol Inhaler [Ventolin Hfa Inhaler] 1 puff INHALATION QID PRN #8 gm PRN Reason: Shortness Of Breath Or Wheezing Continue Metoprolol Tartrate [Lopressor] 50 mg PO HS Furosemide [Lasix] 20 mg PO BID Sertraline [Zoloft] 100 mg PO QAM buPROPion XL [Wellbutrin XL] 150 mg PO QAM Montelukast Sodium [Singulair] 10 mg PO QAM Potassium Chloride ER [K-Dur 10] 20 meq PO QAM Rivaroxaban [Xarelto] 20 mg PO W/SUPPER Clopidogrel [Plavix] 75 mg PO DAILY #90 tab hydrALAZINE HCL 25 mg PO DAILY Pantoprazole Sodium [Protonix] 40 mg PO DAILY amLODIPine [Norvasc] 10 mg PO QAM Losartan Potassium [Cozaar] 100 mg PO QAM Atorvastatin [Lipitor] 40 mg PO DAILY #90 tab Nitroglycerin Sl Tabs [Nitrostat] 0.4 mg SUBLINGUAL Q5M PRN #25 tab PRN Reason: Chest Pain Ezetimibe [Zetia] 10 mg PO DAILY Discharge Medication List Furosemide [Lasix] 20 mg PO BID 11/14/17 [History] Metoprolol Tartrate [Lopressor] 50 mg PO HS 11/14/17 [History] Sertraline [Zoloft] 100 mg PO QAM 11/14/17 [History] Losartan Potassium [Cozaar] 100 mg PO QAM 03/20/21 [History] Montelukast Sodium [Singulair] 10 mg PO QAM 03/20/21 [History] Potassium Chloride ER [K-Dur 10] 20 meq PO QAM 03/20/21 [History] amLODIPine [Norvasc] 10 mg PO QAM 03/20/21 [History] buPROPion XL [Wellbutrin XL] 150 mg PO QAM 03/20/21 [History] Rivaroxaban [Xarelto] 20 mg PO W/SUPPER 01/31/23 [History] Atorvastatin [Lipitor] 40 mg PO DAILY #90 tab 02/03/23 [Rx] Clopidogrel [Plavix] 75 mg PO DAILY #90 tab 02/03/23 [Rx] Nitroglycerin Sl Tabs [Nitrostat] 0.4 mg SUBLINGUAL Q5M PRN #25 tab 02/03/23 [Rx] Ezetimibe [Zetia] 10 mg PO DAILY 10/02/24 [History] Pantoprazole Sodium [Protonix] 40 mg PO DAILY 10/02/24 [History] hydrALAZINE HCL 25 mg PO DAILY 10/02/24 [History] Acetaminophen Tab [Tylenol] 650 mg PO Q6HR PRN tab 10/07/24 [Rx] Albuterol Inhaler [Ventolin Hfa Inhaler] 1 puff INHALATION QID PRN #8 gm 10/07/24 [Rx] Benzonatate [Tessalon Perles] 100 mg PO TID PRN #30 cap 10/07/24 [Rx] Follow up Appointment(s)/Referral(s): Comfort Horowitz MD [STAFF PHYSICIAN] - 1 Week Jean Marie Merino MD [STAFF PHYSICIAN] - 2 Weeks Jere Love MD [Primary Care Provider] - 1-2 days Activity/Diet/Wound Care/Special Instructions: Diet: Cardiac Discharge Disposition: HOME SELF-CARE
[2024-10-07 11:00] VITALS: BP 144/72; PULSE 59; RESP 17
--- NOTE | 2024-10-07 13:40 | P.PN ---
Subjective Progress Note Date: 10/07/24 This is a 68-year-old female known history of coronary artery disease, previous PCI and stent placement, history of chronic paroxysmal atrial fibrillation, maintained on Xarelto, known history of hypertension dyslipidemia and obstructive sleep apnea, on CPAP, known history of obesity, patient was brought in yesterday to the ER mostly with few days history of increased shortness of breath, no cough, no fever, but positive chills, patient denied any chest pain, no orthopnea, no PND, patient was on 2 L nasal cannula and her O2 saturation was noted to be 92% on 2 L. Patient was admitted with impression of possible congestive heart failure and she was seen by cardiology in consultation, however overnight her pulmonary condition became worse, patient is now on a nonrebreather mask, O2 saturation is in the low 90s and spite of receiving Lasix 80 mg IV push every 12 hours. Chest x-ray showed evidence of right upper lobe pneumonia, EKG showed nonacute ischemic changes but the patient is in atrial f ibrillation with controlled rate of 74. Venous Doppler of the lower extremities was negative for DVT, patient had venous Doppler done because of few days history of increased swelling and fluid retention in her lower extremities. Patient was also noted to have a bit of leukocytosis with WC count of 12.9, her hemoglobin was 12.1, renal profile was normal. BNP level was normal. After evaluating the patient, I recommended a transfer of the patient to [facility] recommended a CT angiogram of the chest, in the meantime I recommended antibiotics empirically for presumptive acute community-acquired right upper lobe pneumonia. In the meantime the patient will remain on a nonrebreather mask, and will remain on diuretics as ordered by cardiology. Echocardiogram on this patient today showed good LV function, however the patient was found to have moderate severe aortic stenosis with mean gradient of 24, and there was evidence of mild pulmonary hypertension. With mild tricuspid and mild mitral va lve regurgitation. The patient is seen today October 04, 2024 in follow-up on the selective care unit . She is currently resting in bed. Awake and alert in no acute distress. He is requiring 10 L high flow nasal cannula to maintain O2 saturation in the mid 90s. She has been afebrile. Hemodynamically stable. CT angiogram revealed no evidence of pulmonary embolism. Lungs with patchy infiltrates throughout the right upper and right lower lobes with sparing of the right middle lobe. There is also bilateral groundglass infiltrates and small bilateral effusions. White count 15.5. Hemoglobin 12.5. Platelets 266. Sodium 138. Potassium 3.2. Bicarb 33. BUN 13. Creatinine 0.73. Glucose 147. Procalcitonin was negative at 0.07. Remains on bronchodilators and Singulair. Anticoagulated with Xarelto. The patient is seen today October 05, 2024 in follow-up on the selective care unit. She is currently up at a chair. Awake and alert in no acute distress. Maintaining O2 saturations in the 90s on 3 L/min per nasal cannula. She has been afebrile. Hemodynamically stable. No new labs today. She remains on ceftriaxone. Anticoagulated with Xarelto. Continued on bronchodilators. Co ntinued on IV diuretics. Currently in a -2 L balance. The patient is seen today October 06, 2024 in follow-up on the selective care unit. She is currently resting in bed. Awake and alert in no acute distress. Maintaining O2 saturations in the 90s on 2 L/min per nasal cannula. She is afebrile. Hemodynamically stable. Sodium 138. Potassium 3.4. Bicarb 31. BUN 24. Creatinine 0.91. Glucose 126. Procalcitonin was negative at 0.07. She remains on DuoNeb inhalations, Singulair. Anticoagulated with Xarelto. Remains on ceftriaxone. Remains on IV diuretics. Currently in a -660 mL balance. The patient is seen today October 07, 2024 in follow-up on the selective care unit. She is currently sitting up in bed. Awake and alert in no acute distress. Denies any worsening shortness of breath, cough or congestion. She is afebrile. Hemodynamically stable. Maintaining O2 saturations in the 90s on room air. Remains on DuoNeb and elations, Singulair. Remains on Tessalon Perles and Mucinex. Remains on oral diuretics. Anticoagulated with Xarelto. Remains on ceftriaxone. Sodium 139. Potassium 3.6. Bicarb 29. BUN 19. Creatinine 0.76. Glucose 113. Procalcitonin was negative at 0.07. Chest x-ray showed marked improvement in the bilateral multifocal infiltrates and/or edema. No new infiltrates are noted. Objective - Vital Signs Vital signs: Vital Signs Temp 97.7 F 10/07/24 08:35 Pulse 59 L 10/07/24 10:59 Resp 17 10/07/24 10:59 BP 144/72 10/07/24 10:59 Pulse Ox 95 10/07/24 10:59 FiO2 21 10/07/24 08:34 Intake & Output 10/06/24 10/07/24 10/07/24 18:59 06:59 18:59 Intake Total 960 240 Output Total 850 1100 150 Balance 110 -1100 90 Weight 135.8 kg Intake: Oral 960 240 Output: Urine 850 1100 150 Other: Voiding Method Bedside Commode Toilet Toilet Bedside Commode Bedside Commode # Voids 2 1 - Exam GENERAL EXAM: Alert, morbidly obese 68-year-old female, sitting up in bed, on room air oxygen, comfortable in no apparent distress. HEAD: Normocephalic. EYES: Normal reaction of pupils, equal size. NOSE: Clear with pink turbinates. THROAT: No erythema or exudates. NECK: No masses, no JVD. CHEST: No chest wall deformity. LUNGS: Equal air entry with bilateral rhonchi. CVS: S1 and S2 normal with no audible murmur, regular rhythm. ABDOMEN: No hepatosplenomegaly, normal bowel sounds, no guarding or rigidity. SPINE: No scoliosis or deformity SKIN: No rashes CENTRAL NERVOUS SYSTEM: No focal deficits, tone is normal in all 4 extremities. EXTREMITIES: There is 1+ peripheral edema. No clubbing, no cyanosis. Peripheral pulses are intact. - Labs CBC & Chem 7: 10/03/24 03:34 10/07/24 07:08 Labs: Abnormal Lab Results - Last 24 Hours (Table) 10/07/24 Range/Units 07:08 BUN 19 H (7-17) mg/dL Glucose 113 H (74-99) mg/dL Assessment and Plan Assessment: Acute hypoxic respiratory failure secondary to acute community-acquired right upper lobe pneumonia, improved and on room air Acute exacerbation of diastolic congestive heart failure Moderate aortic stenosis Paroxysmal atrial fibrillation anticoagulated with Xarelto Dyslipidemia History of coronary arteriosclerosis and previous PCI Benign essential hypertension Obstructive sleep apnea syndrome Plan: The patient was seen and evaluated Chest x-ray, labs and medications reviewed Chest x-ray shows much improvement Stable and on room air Cleared for discharge Continue albuterol HFA as needed Continue Tessalon Perles as needed Follow-up in the office in 1 week I have personally seen and examined the patient, performed the documentation and the assessment and plan as written. Number of minutes spent on the visit: 10 Dictation was produced using [id number] dictation software. Please excuse any grammatical, word or spelling errors.
== END 2024-10-07 13:16 | disposition home or self-care (01) | DRG 291 ==
LOC: EC 20:14 → 6NMEDSUR 23:20 → OBSVTOIN 23:20 → 1SOBS 10-02 15:01 → 3SCARD 10-03 13:42
PROVIDERS: ADMIT Internal Medicine; ATTEND Internal Medicine
DX: I11.0 Hypertensive heart disease with heart failure (principal); I50.33 Acute on chronic diastolic (congestive) heart failure; J96.01 Acute respiratory failure with hypoxia; J18.9 Pneumonia, unspecified organism; I27.20 Pulmonary hypertension, unspecified; Z79.01 Long term (current) use of anticoagulants; Z11.52 Encounter for screening for COVID-19; I48.0 Paroxysmal atrial fibrillation; E66.9 Obesity, unspecified; F32.A Depression, unspecified; I35.0 Nonrheumatic aortic (valve) stenosis; E78.5 Hyperlipidemia, unspecified; E87.6 Hypokalemia; G47.33 Obstructive sleep apnea (adult) (pediatric); I25.10 Atherosclerotic heart disease of native coronary artery without angina pectoris; I87.2 Venous insufficiency (chronic) (peripheral); R79.1 Abnormal coagulation profile; Z79.02 Long term (current) use of antithrombotics/antiplatelets; Z79.82 Long term (current) use of aspirin; Z79.899 Other long term (current) drug therapy; Z82.49 Family history of ischemic heart disease and other diseases of the circulatory system; Z90.710 Acquired absence of both cervix and uterus; Z87.891 Personal history of nicotine dependence; Z95.5 Presence of coronary angioplasty implant and graft
CPT/HCPCS: 36415; 36600; 71045; 71046; 71275; 80048; 80053; 82805; 83605; 83735; 83880; 84145; 84484; 85025; 85027; 85379; 85610; 85730; 87636; 93005; 93306; 93970; 94640; 94660; 94760; 96365; 96366; 96367; 96375; 99285